=== PATIENT | male | born 1930 | race Two or more races ===

== ENCOUNTER 2018-12-19 23:39 | Emergency (ER) | payer OTHER, MEDICARE ==
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
[2018-12-20 01:11] LABS: ABSOLUTE BASOPHILS # (AUTO) 0.1 10^3/uL (0.0-0.2); ABSOLUTE EOSINOPHILS # (AUTO) 0.1 10^3/uL (0.0-0.6); ABSOLUTE LYMPHOCYTES (AUTO) 0.5 10^3/uL (0.5-4.7); ABSOLUTE MONOCYTES (AUTO) 0.5 10^3/uL (0.1-1.4); BASOPHILS % (AUTO) 0.8 % (0-2); EOSINOPHILS % (AUTO) 1.3 % (0-6); HEMOGLOBIN 12.3 g/dL (13.5-17.0); LYMPHOCYTES % (AUTO) 7.1 % (13-45); MEAN CORPUSCULAR HGB CONC 33.4 g/dL (32.0-36.0); MEAN CORPUSCULAR VOLUME 93 fl (80-97); MONOCYTES % (AUTO) 7.3 % (3-13); PLATELET COUNT 127 10^3/uL (150-450); RED BLOOD COUNT 3.98 10^6/uL (4.35-5.55); RED CELL DISTRIBUTION WIDTH 13.4 % (11.5-14.0); SEGMENTED NEUTROPHILS % (AUTO) 83.5 % (42-78); TOTAL CELLS COUNTED % (AUTO) 100 %; WHITE BLOOD COUNT 7.2 10^3/uL (4.0-10.5)
[2018-12-20 01:14] LABS: INTERNATIONAL RATION (INR) 1.02; PROTHROMBIN TIME 13.4 SEC (11.4-15.4)
[2018-12-20 01:57] LABS: ALBUMIN 3.9 g/dL (3.5-5.0); ALKALINE PHOSPHATASE 80 U/L (38-126); ANION GAP 9 (5-19); ASPARTATE AMINO TRANSFERASE 32 U/L (17-59); BILIRUBIN,DIRECT 0.5 mg/dL (0.0-0.4); BILIRUBIN,TOTAL 0.8 mg/dL (0.2-1.3); BLOOD UREA NITROGEN 27 mg/dL (7-20); CALCIUM 9.5 mg/dL (8.4-10.2); CARBON DIOXIDE 29 mmol/L (22-30); CHLORIDE 102 mmol/L (98-107); GLUCOSE 106 mg/dL (75-110); TOTAL PROTEIN 7.8 g/dL (6.3-8.2)
--- NOTE | 2018-12-20 02:19 | RADIOLOGY REPORT (SQ) ---
EXAM DESCRIPTION: XR RIGHT FOOT 3 OR MORE VIEWS COMPLETED DATE/TME: 12/20/2018 01:24 CLINICAL HISTORY: 88 years, Male, fever, infection, hx amputation COMPARISON: None. NUMBER OF VIEWS: TECHNIQUE: LIMITATIONS: None. FINDINGS: There is evidence of forefoot amputation. There is possible edema/swelling in the region of the amputation stump. No evidence of gas or radiopaque foreign body within the soft tissues. No radiographic evidence of osteomyelitis. There are some degenerative changes involving the tarsal bone joints. There is a plantar calcaneal spur. IMPRESSION: Possible edema/swelling in the region of the amputation stump, with no evidence of osteomyelitis. Other findings as described. copyright 2010 [employer]- All Rights Reserved
[2018-12-20 02:44] LABS: VENOUS BLOOD BASE EXCESS 4.5 mmol/L; VENOUS BLOOD HCO3 30.3 mmol/L (20-32); VENOUS BLOOD PCO2 50.1 mmHg (35-63); VENOUS BLOOD PH 7.4 (7.30-7.42)
[2018-12-20 03:25] LABS: APPEARANCE,URINE CLEAR; BILIRUBIN,URINE NEGATIVE (NEGATIVE); COLOR,URINE YELLOW; GLUCOSE, URINE 150 mg/dL (NEGATIVE); KETONES,URINE NEGATIVE (NEGATIVE); LEUKOCYTE ESTERASE,URINE NEGATIVE (NEGATIVE); NITRITE,URINE NEGATIVE (NEGATIVE); PROTEIN,URINE 30 mg/dL (NEGATIVE); URINE SPECIFIC GRAVITY 1.015; UROBILINOGEN,URINE NEGATIVE mg/dL (<2.0)
[2018-12-20 04:53] VITALS: BP 117/60
--- NOTE | 2018-12-20 10:16 | EKG REPORT ---
SEVERITY:- NORMAL ECG - SINUS RHYTHM : Confirmed by: Tucker Rashid 20-Dec-2018 10:15:27
== END 2018-12-20 05:30 | disposition home or self-care (01) ==
LOC: ER 23:39
DX: R50.9 Fever, unspecified (principal); I25.10 Atherosclerotic heart disease of native coronary artery without angina pectoris; I10 Essential (primary) hypertension; E11.9 Type 2 diabetes mellitus without complications; E03.9 Hypothyroidism, unspecified; Z89.431 Acquired absence of right foot
CPT/HCPCS: 36415; 80053; 81001; 82803; 83605; 85025; 85610; 87040; 87086; 93005; 93010; 99284

== ENCOUNTER 2018-12-30 17:44 | Observation (INO) | payer OTHER, MEDICARE ==
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
--- NOTE | 2018-12-30 19:46 | RADIOLOGY REPORT (SQ) ---
EXAM DESCRIPTION: FOOT RIGHT COMPLETE COMPLETED DATE/TIME: 12/30/2018 7:37 pm REASON FOR STUDY: hx of injury, pain partial ambut COMPARISON: None. NUMBER OF VIEWS: Three views. TECHNIQUE: AP, lateral and oblique radiographic images acquired of the right foot. LIMITATIONS: None. FINDINGS: MINERALIZATION: Normal. BONES: Amputation of the forefoot. No evidence of osteomyelitis. JOINTS: No effusions. SOFT TISSUES: No soft tissue swelling. No foreign body. OTHER: No other significant finding. IMPRESSION: No evidence of osteomyelitis. No acute finding. TECHNICAL DOCUMENTATION: JOB ID: [id number] [email or web address]- All Rights Reserved Reading location - IP/workstation name: [email or web address]
[2018-12-30 20:33] LABS: ABSOLUTE BASOPHILS # (AUTO) 0.1 10^3/uL (0.0-0.2); ABSOLUTE EOSINOPHILS # (AUTO) 0.2 10^3/uL (0.0-0.6); ABSOLUTE LYMPHOCYTES (AUTO) 1.7 10^3/uL (0.5-4.7); ABSOLUTE MONOCYTES (AUTO) 0.4 10^3/uL (0.1-1.4); ABSOLUTE NEUT (AUTO) 5.9 10^3/uL (1.7-8.2); BASOPHILS % (AUTO) 0.9 % (0-2); EOSINOPHILS % (AUTO) 2.3 % (0-6); HEMATOCRIT 37.6 % (37.9-51.0); HEMOGLOBIN 12.8 g/dL (13.5-17.0); LYMPHOCYTES % (AUTO) 20.5 % (13-45); MEAN CORPUSCULAR HEMOGLOBIN 31.6 pg (27.0-33.4); MEAN CORPUSCULAR VOLUME 93 fl (80-97); MONOCYTES % (AUTO) 5.3 % (3-13); PLATELET COUNT 156 10^3/uL (150-450); RED BLOOD COUNT 4.04 10^6/uL (4.35-5.55); RED CELL DISTRIBUTION WIDTH 13.3 % (11.5-14.0); TOTAL CELLS COUNTED % (AUTO) 100 %; WHITE BLOOD COUNT 8.3 10^3/uL (4.0-10.5)
[2018-12-30 20:51] LABS: ALBUMIN 3.3 g/dL (3.5-5.0); ALKALINE PHOSPHATASE 90 U/L (38-126); ANION GAP 11 (5-19); ASPARTATE AMINO TRANSFERASE 21 U/L (17-59); BILIRUBIN,DIRECT 0.4 mg/dL (0.0-0.4); BILIRUBIN,TOTAL 0.6 mg/dL (0.2-1.3); BLOOD UREA NITROGEN 30 mg/dL (7-20); CARBON DIOXIDE 24 mmol/L (22-30); CHLORIDE 101 mmol/L (98-107); GLUCOSE 324 mg/dL (75-110); POTASSIUM 4.5 mmol/L (3.6-5.0); TOTAL PROTEIN 7.5 g/dL (6.3-8.2)
[2018-12-30] MEDS ORDERED: PIPERACILLIN/TAZOBACTAM 3.375 GM VIAL IV ONE (22:11)
[2018-12-30] MEDS ORDERED: VANCOMYCIN HCL INJ 1000 MG VIAL IV ONE (22:26)
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
[2018-12-30] MEDS ORDERED: NORMAL SALINE 1000 ML 1,000 ML IV ONE (22:29)
[2018-12-30] MEDS ORDERED: MAGNESIUM HYDROXIDE SUSP 30 ML UDCUP PO PRN (22:44)
[2018-12-30] MEDS ORDERED: ACETAMINOPHEN 325 MG TABLET PO PRN (22:44)
[2018-12-30] MEDS ORDERED: IPRATROPIUM/ALBUTEROL 0.5-2.5 MG/3 ML AMPUL NEB PRN (22:44)
[2018-12-30] MEDS ORDERED: GLUCAGON,HUMAN RECOMB 1 MG INJ IM PRN (22:44)
[2018-12-30] MEDS ORDERED: DEXTROSE 40% GEL 15 GM TUBE PO PRN ×2 (22:44)
[2018-12-30] MEDS ORDERED: MAG HYDROX/AL HYDROX/SIMETH SUSP 30 ML UDCUP PO PRN (22:44)
[2018-12-30] MEDS ORDERED: DEXTROSE 50%-WATER 25 GM/50 ML DISP.SYRIN IV PRN ×2 (22:44)
[2018-12-30] MEDS ORDERED: NORMAL SALINE 1000 ML 1,000 ML IV PRN (22:45)
--- NOTE | 2018-12-30 23:22 | RADIOLOGY REPORT (SQ) ---
EXAM DESCRIPTION: XR CHEST 1 VIEW COMPLETED DATE/TME: 12/30/2018 22:23 CLINICAL HISTORY: 88 years Male, diabetic foot ulcer COMPARISON: None. NUMBER OF VIEWS/TECHNIQUE: 1/AP FINDINGS: Moderate lung volume, minimal left basilar atelectasis or scar, normal cardiac silhouette, and intact bony thorax. Atherosclerotic vascular disease. IMPRESSION: No acute cardiopulmonary findings.
[2018-12-30] MEDS ORDERED: GABAPENTIN 100 MG CAPSULE PO ONE (23:30)
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
[2018-12-31 03:30] LABS: ABSOLUTE BASOPHILS # (AUTO) 0.1 10^3/uL (0.0-0.2); ABSOLUTE EOSINOPHILS # (AUTO) 0.3 10^3/uL (0.0-0.6); ABSOLUTE LYMPHOCYTES (AUTO) 1.9 10^3/uL (0.5-4.7); ABSOLUTE MONOCYTES (AUTO) 0.5 10^3/uL (0.1-1.4); ABSOLUTE NEUT (AUTO) 4.8 10^3/uL (1.7-8.2); BASOPHILS % (AUTO) 1.2 % (0-2); EOSINOPHILS % (AUTO) 3.8 % (0-6); HEMATOCRIT 34.5 % (37.9-51.0); HEMOGLOBIN 11.6 g/dL (13.5-17.0); LYMPHOCYTES % (AUTO) 24.9 % (13-45); MEAN CORPUSCULAR HEMOGLOBIN 31.1 pg (27.0-33.4); MEAN CORPUSCULAR HGB CONC 33.8 g/dL (32.0-36.0); MEAN CORPUSCULAR VOLUME 92 fl (80-97); PLATELET COUNT 152 10^3/uL (150-450); RED BLOOD COUNT 3.74 10^6/uL (4.35-5.55); SEGMENTED NEUTROPHILS % (AUTO) 63.1 % (42-78); TOTAL CELLS COUNTED % (AUTO) 100 %; WHITE BLOOD COUNT 7.6 10^3/uL (4.0-10.5)
--- NOTE | 2018-12-31 04:30 | PDOC H&P ---
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 He presents 10 days after submerging his right foot and to excessively hot bath water results in blistering, erythema and pain prompting evaluation in the emergency room. He is found to have 6 x 3 cm eschar to the right foot with peripheral erythema without exudate. He is ordered empiric antibiotics and referred to the hospitalist for admission. Patient complains of new and excessive pain at night to the right foot. Patient is visiting the area from out of state and accompanied by daughter. Past Medical History Cardiac Medical History: Reports: Coronary Artery Disease, Hypertension Endocrine Medical History: Reports: Diabetes Mellitus Type 2, Hypothyroidism Psychiatric Medical History: Denies: Depression Past Surgical History Past Surgical History: Reports: Orthopedic Surgery - right foot partial amputation, Vascular Surgery Social History Information Source: Patient, Emergency Med Personnel, [facility] Records Lives with: Family Smoking Status: Never Smoker Frequency of Alcohol Use: None Drugs: None Hx Prescription Drug Abuse: No - Advance Directive Resuscitation Status: Full Code Family History Family History: DM, Hypertension Parental Family History Reviewed: Yes Children Family History Reviewed: Yes Sibling(s) Family History Reviewed.: Yes Medication/Allergy Allergies/Adverse Reactions: No Known Allergies Allergy (Verified 12/30/18 18:05) Review of Systems Constitutional: ABSENT: chills, fever(s), headache(s), weight gain, weight loss Eyes: ABSENT: visual disturbances Ears: ABSENT: hearing changes Cardiovascular: ABSENT: chest pain, dyspnea on exertion, edema, orthropnea, palpitations Respiratory: ABSENT: cough, hemoptysis Gastrointestinal: ABSENT: abdominal pain, constipation, diarrhea, hematemesis, hematochezia, nausea, vomiting Genitourinary: ABSENT: dysuria, hematuria Musculoskeletal: ABSENT: joint swelling Integumentary: ABSENT: rash, wounds Neurological: ABSENT: abnormal gait, abnormal speech, confusion, dizziness, focal weakness, syncope Psychiatric: ABSENT: anxiety, depression, homidical ideation, suicidal ideation Endocrine: ABSENT: cold intolerance, heat intolerance, polydipsia, polyuria Hematologic/Lymphatic: ABSENT: easy bleeding, easy bruising Physical Exam Vital Signs: Temp Pulse Resp BP Pulse Ox 98.4 F 88 17 148/66 H 99 12/31/18 02:21 12/31/18 02:21 12/31/18 02:21 12/31/18 02:21 12/31/18 02:21 Intake & Output 12/29/18 12/30/18 12/31/18 11:59 11:59 11:59 Weight 72.9 kg General appearance: PRESENT: cooperative, mild distress, well-developed, well- nourished Head exam: PRESENT: atraumatic, normocephalic Eye exam: PRESENT: conjunctiva pink, EOMI, PERRLA. ABSENT: scleral icterus Ear exam: PRESENT: normal external ear exam Mouth exam: PRESENT: moist, tongue midline Neck exam: ABSENT: carotid bruit, JVD, lymphadenopathy, thyromegaly Respiratory exam: PRESENT: clear to auscultation cheryle. ABSENT: rales, rhonchi, wheezes Cardiovascular exam: PRESENT: RRR. ABSENT: diastolic murmur, rubs, systolic murmur Pulses: PRESENT: normal dorsalis pedis pul Vascular exam: PRESENT: normal capillary refill GI/Abdominal exam: PRESENT: normal bowel sounds, soft. ABSENT: distended, guarding, mass, organolmegaly, rebound, tenderness Rectal exam: PRESENT: deferred Extremities exam: PRESENT: full ROM. ABSENT: calf tenderness, clubbing, pedal edema Neurological exam: PRESENT: alert, awake, oriented to person, oriented to place, oriented to time, oriented to situation, CN II-XII grossly intact. ABSENT: motor sensory deficit Psychiatric exam: PRESENT: appropriate affect, normal mood. ABSENT: homicidal ideation, suicidal ideation Skin exam: PRESENT: dry, warm, other - Plantar surface of the right foot with a 6 x 3 cm eschar with erythemic borders, without malodor or discharge. ABSENT: cyanosis, intact, rash Results Laboratory Results: 12/31/18 02:41 12/30/18 19:55 12/30/18 12/30/18 12/30/18 19:55 19:55 19:55 WBC 8.3 RBC 4.04 L Hgb 12.8 L Hct 37.6 L MCV 93 MCH 31.6 MCHC 34.0 RDW 13.3 Plt Count 156 Seg Neutrophils % 71.0 Sodium 135.5 L Potassium 4.5 Chloride 101 Carbon Dioxide 24 Anion Gap 11 BUN 30 H Creatinine 1.22 Est GFR ( Amer) > 60 Glucose 324 H Lactic Acid 2.2 H Calcium 9.0 Total Bilirubin 0.6 AST 21 Alkaline Phosphatase 90 C-Reactive Protein Total Protein 7.5 Albumin 3.3 L 12/30/18 12/31/18 12/31/18 19:55 02:41 02:41 WBC 7.6 RBC 3.74 L Hgb 11.6 L Hct 34.5 L MCV 92 MCH 31.1 MCHC 33.8 RDW 13.0 Plt Count 152 Seg Neutrophils % 63.1 Sodium Potassium Chloride Carbon Dioxide Anion Gap BUN Creatinine Est GFR ( Amer) Glucose Lactic Acid 1.8 Calcium Total Bilirubin AST Alkaline Phosphatase C-Reactive Protein 48.5 H Total Protein Albumin 12/31/18 02:41 Creatine Kinase 48 L Impressions: Foot X-Ray 12/30/18 19:14 IMPRESSION: No evidence of osteomyelitis. No acute finding. Chest X-Ray 12/30/18 22:23 IMPRESSION: No acute cardiopulmonary findings. Assessment and Plan - Diagnosis (1) Diabetes Is this a current diagnosis for this admission?: Yes Plan: Humalog sliding scale, follow-up outpatient regiment, A1c (2) Burn Is this a current diagnosis for this admission?: Yes Plan: With eschar complicated by diabetes, follow-up surgical consult for recommendations. (3) Osteomyelitis Is this a current diagnosis for this admission?: Yes Plan: No apparent active infection, leukocytosis or localized pain or exudate. Patient is received a single dose of empiric antibiotics. Will obtain CT right foot and evaluation of possible osteomyelitis given a CRP of 49 - Time Time Spent with patient: 35 or more minutes - Inpatient Certification Medical Necessity: Need Close Monitoring Due to Risk of Patient Decompensation
[2018-12-31] MEDS ORDERED: GABAPENTIN 100 MG CAPSULE PO SCH (06:00)
[2018-12-31] MEDS ORDERED: HEPARIN SOD (PORCINE) 5,000 UNIT/ML 1 ML VIAL SUBCUT SCH (06:00)
[2018-12-31] MEDS: INSULIN LISPRO 100 UNIT/ML 3 ML VIAL SUBCUT SCH ×2 (08:06→12:10)
[2018-12-31] MEDS ORDERED: SILVER SULFADIAZINE 1% CREAM 25 GM TP SCH (10:00)
--- NOTE | 2018-12-31 10:47 | PDOC PROGRESS REPORT ---
Subjective Progress Note for:: 12/31/18 Subjective:: 88-year-old male with a burn to the right foot. He is resting in bed comfortably. He denies pain in the foot, erythema, foul-smelling drainage, or other problem. He also denies chest pain, shortness of breath, fevers, chills, nausea, vomiting, abdominal pain, melena, dizziness. He has family members at bedside that assist with the conversation. Reason For Visit: RIGHT FOOT BURN W ESCHAR Physical Exam Vital Signs: Temp Pulse Resp BP Pulse Ox 98.6 F 80 16 125/63 100 12/31/18 07:46 12/31/18 07:46 12/31/18 07:46 12/31/18 07:46 12/31/18 07:46 Intake & Output 12/30/18 12/31/18 01/01/19 06:59 06:59 06:59 Weight 72.9 kg General appearance: PRESENT: no acute distress, cooperative Head exam: PRESENT: atraumatic, normocephalic Eye exam: ABSENT: scleral icterus Mouth exam: PRESENT: moist, neck supple Neck exam: ABSENT: meningismus, tenderness, thyromegaly, tracheal deviation Respiratory exam: ABSENT: chest wall tenderness, wheezes Cardiovascular exam: ABSENT: tachycardia Vascular exam: PRESENT: normal capillary refill, pallor GI/Abdominal exam: PRESENT: soft. ABSENT: distended, tenderness Rectal exam: PRESENT: deferred Extremities exam: PRESENT: other - Burn to the right foot. Eschar is present, without signs of necrosis. No purulent drainage. No evidence of infection. Musculoskeletal exam: PRESENT: other - Previous TMA to the right foot. Neurological exam: PRESENT: alert, awake Psychiatric exam: ABSENT: agitated, anxious Skin exam: ABSENT: erythema, jaundice Results Laboratory Results: 12/31/18 02:41 12/30/18 19:55 12/30/18 12/30/18 12/30/18 19:55 19:55 19:55 WBC 8.3 RBC 4.04 L Hgb 12.8 L Hct 37.6 L MCV 93 MCH 31.6 MCHC 34.0 RDW 13.3 Plt Count 156 Seg Neutrophils % 71.0 Sodium 135.5 L Potassium 4.5 Chloride 101 Carbon Dioxide 24 Anion Gap 11 BUN 30 H Creatinine 1.22 Est GFR ( Amer) > 60 Glucose 324 H Lactic Acid 2.2 H Calcium 9.0 Total Bilirubin 0.6 AST 21 Alkaline Phosphatase 90 C-Reactive Protein Total Protein 7.5 Albumin 3.3 L 12/30/18 12/31/18 12/31/18 19:55 02:41 02:41 WBC 7.6 RBC 3.74 L Hgb 11.6 L Hct 34.5 L MCV 92 MCH 31.1 MCHC 33.8 RDW 13.0 Plt Count 152 Seg Neutrophils % 63.1 Sodium Potassium Chloride Carbon Dioxide Anion Gap BUN Creatinine Est GFR ( Amer) Glucose Lactic Acid 1.8 Calcium Total Bilirubin AST Alkaline Phosphatase C-Reactive Protein 48.5 H Total Protein Albumin 12/31/18 02:41 Creatine Kinase 48 L Impressions: Foot X-Ray 12/30/18 19:14 IMPRESSION: No evidence of osteomyelitis. No acute finding. Chest X-Ray 12/30/18 22:23 IMPRESSION: No acute cardiopulmonary findings. Assessment & Plan - Diagnosis (1) Burn Is this a current diagnosis for this admission?: Yes - Plan Summary Plan Summary: This is an 88-year-old male with a burn to the right foot. The patient has an intact eschar over the burn. The eschar is not necrotic. There is no evidence of purulence. There is no significant erythema. I believe the patient would b enefit from Silvadene ointment and a dry dressing. The patient and his family should perform this once a day. The patient should return to [facility] for follow-up in 7 to 10 days. At this time, the wound does not require debridement. It is unlikely that it will require debridement in the near future, although close follow-up is mandatory. The patient is fit for discharge from a surgical standpoint. I will see the patient again on an as-needed basis in the hospital. Please renotify with any questions or concerns.
[2018-12-31 12:29] VITALS: BP 124/57
--- NOTE | 2018-12-31 16:55 | PDOC DISCHARGE SUMMARY ---
General - Admit/Disc Date/PCP Admission Date/Primary Care Provider: 12/30/18 22:46 Discharge Date: 12/31/18 - Additional Information Resuscitation Status: Full Code Discharge Diet: Diabetic Discharge Activity: Supervised Activity Prescriptions: Silver Sulfadiazine [Silvadene 1% Cream 25 gm] 1 applic TP DAILY #1 tube Home Medications: Silver Sulfadiazine [Silvadene 1% Cream 25 gm] 1 applic TP DAILY #1 tube 12/31/18 History of Present Illness History of Present Illness: CAMILLE RAMIREZ is a 88 year old male with a past medical history of coronary artery disease, peripheral vascular disease, insulin-dependent diabetes and 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 He presents 10 days after submerging his right foot and to excessively hot bath water results in blistering, erythema and pain prompting evaluation in the emergency room. He is found to have 6 x 3 cm eschar to the right foot with peripheral erythema without exudate. He is ordered empiric antibiotics and referred to the hospitalist for admission. Patient complains of new and excessive pain at night to the right foot. Patient is visiting the area from out of state and accompanied by daughter. Hospital Course Hospital Course: He was seen in consultation by surgery who did not think the foot was infected and as needed local wound care. They recommended Silvadene daily with a dry bandage. We sent a prescription to the pharmacy and gave the patient's daughter some bandage material. He will continue his usual medications at home. He was discharged in stable condition. Physical Exam Vital Signs: Temp Pulse Resp BP Pulse Ox 98.6 F 80 16 124/57 L 100 12/31/18 12:27 12/31/18 12:27 12/31/18 12:27 12/31/18 12:27 12/31/18 12:27 Intake & Output 12/30/18 12/31/18 01/01/19 06:59 06:59 06:59 Weight 72.9 kg General appearance: PRESENT: no acute distress, cooperative, disheveled Respiratory exam: PRESENT: clear to auscultation cheryle, symmetrical, unlabored. ABSENT: accessory muscle use, chest wall tenderness, crackles, prolonged expiratory phas, rhonchi, tachypnea, wheezes Cardiovascular exam: PRESENT: RRR, +S1, +S2 Pulses: PRESENT: normal carotid pulses Vascular exam: PRESENT: normal capillary refill GI/Abdominal exam: PRESENT: normal bowel sounds, soft. ABSENT: distended, guarding, rebound, tenderness Extremities exam: PRESENT: other - The right foot shows a previous partial amputation. On the bottom of the foot is a large area approximately 6 x 3 cm of dark eschar without any surrounding erythema or exudate.. ABSENT: clubbing, pedal edema Neurological exam: PRESENT: alert, awake, oriented to person, oriented to place, oriented to situation Psychiatric exam: PRESENT: appropriate affect, normal mood Skin exam: PRESENT: dry, warm Results Laboratory Results: 12/31/18 02:41 12/30/18 19:55 12/30/18 12/30/18 12/30/18 19:55 19:55 19:55 WBC 8.3 RBC 4.04 L Hgb 12.8 L Hct 37.6 L MCV 93 MCH 31.6 MCHC 34.0 RDW 13.3 Plt Count 156 Seg Neutrophils % 71.0 Sodium 135.5 L Potassium 4.5 Chloride 101 Carbon Dioxide 24 Anion Gap 11 BUN 30 H Creatinine 1.22 Est GFR ( Amer) > 60 Glucose 324 H Lactic Acid 2.2 H Calcium 9.0 Total Bilirubin 0.6 AST 21 Alkaline Phosphatase 90 C-Reactive Protein Total Protein 7.5 Albumin 3.3 L 12/30/18 12/31/18 12/31/18 19:55 02:41 02:41 WBC 7.6 RBC 3.74 L Hgb 11.6 L Hct 34.5 L MCV 92 MCH 31.1 MCHC 33.8 RDW 13.0 Plt Count 152 Seg Neutrophils % 63.1 Sodium Potassium Chloride Carbon Dioxide Anion Gap BUN Creatinine Est GFR ( Amer) Glucose Lactic Acid 1.8 Calcium Total Bilirubin AST Alkaline Phosphatase C-Reactive Protein 48.5 H Total Protein Albumin 12/31/18 02:41 Creatine Kinase 48 L Impressions: Foot X-Ray 12/30/18 19:14 IMPRESSION: No evidence of osteomyelitis. No acute finding. Chest X-Ray 12/30/18 22:23 IMPRESSION: No acute cardiopulmonary findings. Qualifiers - * PATIENT BEING DISCHARGED WITH ANY OF THE FOLLOWING DIAGNOSIS: No Acute Heart Failure - Is this a Heart Failure Patient?: No Plan Time Spent: Greater than 30 Minutes
== END 2018-12-31 13:53 | disposition home or self-care (01) ==
LOC: ER 17:44 → EH 22:46 → INTOOBSV 22:46 → 4N 12-31 01:53
PROVIDERS: ADMIT Internal Medicine; ATTEND Internal Medicine
DX: T25.321A Burn of third degree of right foot, initial encounter (principal); X11.0XXA Contact with hot water in bath or tub, initial encounter; Y93.E1 Activity, personal bathing and showering; E11.51 Type 2 diabetes mellitus with diabetic peripheral angiopathy without gangrene; R53.83 Other fatigue; I25.10 Atherosclerotic heart disease of native coronary artery without angina pectoris; E11.65 Type 2 diabetes mellitus with hyperglycemia; I87.8 Other specified disorders of veins; Z89.431 Acquired absence of right foot; Z87.891 Personal history of nicotine dependence; Z79.4 Long term (current) use of insulin
CPT/HCPCS: 99285; 36415 ×2; 87040 ×2; 87070; 87205; 82962 ×2; 82550; 85025 ×2; 86140; 87077; 80053; 87186; 83036; 83605 ×2; 71045; 73630; G0378 ×3; J1815

== ENCOUNTER 2019-02-20 18:58 | Inpatient (IN) | payer OTHER, MEDICARE ==
[2019-02-20 20:24] LABS: HEMATOCRIT 29.3 % (37.9-51.0); HEMOGLOBIN 9.5 g/dL (13.5-17.0); MEAN CORPUSCULAR HEMOGLOBIN 29.5 pg (27.0-33.4); MEAN CORPUSCULAR HGB CONC 32.3 g/dL (32.0-36.0); MEAN CORPUSCULAR VOLUME 92 fl (80-97); PLATELET COUNT 143 10^3/uL (150-450); RED BLOOD COUNT 3.21 10^6/uL (4.35-5.55); RED CELL DISTRIBUTION WIDTH 13.9 % (11.5-14.0); WHITE BLOOD COUNT 11.2 10^3/uL (4.0-10.5)
[2019-02-20 20:30] LABS: INTERNATIONAL RATION (INR) 1.57; PROTHROMBIN TIME 18.9 SEC (11.4-15.4)
[2019-02-20 20:43] LABS: ALBUMIN 2.6 g/dL (3.5-5.0); ALKALINE PHOSPHATASE 84 U/L (38-126); ANION GAP 11 (5-19); ASPARTATE AMINO TRANSFERASE 15 U/L (17-59); BILIRUBIN,DIRECT 0.3 mg/dL (0.0-0.4); BILIRUBIN,TOTAL 0.9 mg/dL (0.2-1.3); BLOOD UREA NITROGEN 29 mg/dL (7-20); CALCIUM 8.6 mg/dL (8.4-10.2); CARBON DIOXIDE 26 mmol/L (22-30); CHLORIDE 100 mmol/L (98-107); GLUCOSE 206 mg/dL (75-110); POTASSIUM 4.1 mmol/L (3.6-5.0); TOTAL PROTEIN 5.9 g/dL (6.3-8.2)
[2019-02-20 20:45] LABS: ALCOHOL < 10 mg/dL (NONE DETECTED)
[2019-02-20 20:52] LABS: ABSOLUTE LYMPHOCYTES# (MANUAL) 0.1 10^3/uL (0.5-4.7); ABSOLUTE MONOCYTES # (MANUAL) 0.4 10^3/uL (0.1-1.4); BAND NEUTROPHILS % (MANUAL) 2 % (3-5); BASOPHILS % (MANUAL) 1 % (0-2); EOSINOPHILS % (MANUAL) 0 % (0-6); HYPOCHROMASIA SLIGHT; LYMPHOCYTES % (MANUAL) 1 % (13-45); MONOCYTES % (MANUAL) 4 % (3-13); SEGMENTED NEUTROPHILS % (MAN) 92 % (42-78); TOTAL CELLS COUNTED 100
[2019-02-20 20:53] LABS: PLATELET COMMENT DECREASED
[2019-02-20] MEDS ORDERED: PIPERACILLIN/TAZOBACTAM 3.375 GM VIAL IV ONE (21:08)
[2019-02-20 21:11] LABS: VENOUS BLOOD BASE EXCESS 0.5 mmol/L; VENOUS BLOOD HCO3 25.4 mmol/L (20-32); VENOUS BLOOD PCO2 41.8 mmHg (35-63); VENOUS BLOOD PH 7.4 (7.30-7.42)
--- NOTE | 2019-02-20 21:47 | ER Document Report ---
ED General - General Chief Complaint: Altered Mental Status Stated Complaint: POSSIBLE SEPSIS Primary Care Provider: KASSIE PARKINSON MD [COMMUNITY BASED STAFF] - Follow up as needed TRAVEL OUTSIDE OF THE [place] IN LAST 30 DAYS: No - HPI Onset: This morning Onset/Duration: Persistent. denies: Sudden, Gradual, Constant, Intermittent, Waxing and waning, Better, Worse, Gone Quality of pain: denies: No pain, Achy, Burning, Cramping, Dull, Fullness, Press ure, Sharp, Stabbing, Throbbing, Other Severity: Moderate Associated symptoms: Fever. denies: None, Allergy/hay fever, Body/muscle aches, Chest pain, Chills, Nonproductive cough, Productive cough, Diarrhea, Drooling, Earache, Headache, Hoarseness, Hurts to breath, Leg swelling, Nausea, Vomiting, Rhinnorhea, Sinus pain/drainage, Shortness of breath, Slow to respond, Sore throat, Sweating, Weakness, Other Exacerbated by: Movement. denies: Denies, Supine, Sitting, Standing, Walking, Coughing, Deep breathing, Food, Other Relieved by: denies: Denies, Supine, Sitting, Standing, Remaining still, An tacids, Food, Other Notes: Note this is a 89-year-old with a history of diabetes status post resection of his right foot for Cliff problems who presents today with a swollen red heel and foot on this same foot that had the partial amputation with some purulent drainage from it secondary to a eschar on the heel of this foot. Per his son she has had a fever to 102 today - Related Data Allergies/Adverse Reactions: No Known Allergies Allergy (Verified 02/20/19 21:35) Home Medications: reg insulin, nph insulin, b12, isosorbide, eliquis, synthroid, rantinidine, multivitamin Past Medical History - Social History Smoking Status: Unknown if Ever Smoked Family History: DM, Hypertension Patient has suicidal ideation: No Patient has homicidal ideation: No - Past Medical History Cardiac Medical History: Reports: Hx Coronary Artery Disease, Hx Hypertension Endocrine Medical History: Reports: Hx Diabetes Mellitus Type 2, Hx Hypothyroidism Renal/ Medical History: Denies: Hx Peritoneal Dialysis Psychiatric Medical History: Denies: Hx Depression Past Surgical History: Reports: Hx Orthopedic Surgery - right foot partial amputation, Hx Vascular Surgery Review of Systems - Review of Systems Constitutional: Fever. denies: No symptoms reported, See HPI, Chills, Diaphoresis, Malaise, Weakness, Other, Weight gain, Weight loss, Recent illness Cardiovascular: denies: No symptoms reported, See HPI, Chest pain, Palpitations, Heart racing, Orthopnea, Dyspnea, Syncope, Dizziness, Lightheaded, Edema, Other, Paroxysmal Nocturnal Dysp Respiratory: denies: No symptoms reported, See HPI, Cough, Hurts to breathe, Hemoptysis, Short of breath, Sputum, Stridor, Wheezing, Other Genitourinary: denies: No symptoms reported, See HPI, Burning, Dysuria, Discharge, Frequency, Flank pain, Hematuria, Incontinence, Pain, Urgency, Retention, Other Musculoskeletal: denies: No symptoms reported, See HPI, Back pain, Gout, Joint pain, Joint swelling, Muscle pain, Muscle stiffness, Neck pain, Deformity, Leg swelling, Ankle swelling, Other Skin: See HPI Neurological/Psychological: Confusion. denies: No symptoms reported, See HPI, Dementia, Depression, Anxiety, Hallucinations, Sensory change, Homicidal ideation, Weakness, Gait changes, Loss of power, Paralysis, Seizure, Lost consciousness, Headaches, Speech impairment, Numbness, Suicidal ideation, Tingling, Tremor, Other -: Yes All other systems reviewed and negative Physical Exam - Vital signs Vitals: Pulse Ox 97 02/20/19 18:59 Notes: PHYSICAL EXAMINATION: GENERAL: Well-appearing, well-nourished and in no acute distress. HEAD: Atraumatic, normocephalic. EYES: Pupils equal round and reactive to light, extraocular movements intact, sclera anicteric, conjunctiva are normal. ENT: nares patent, oropharynx clear without exudates. Moist mucous membranes. NECK: Normal range of motion, supple without lymphadenopathy LUNGS: Breath sounds clear to auscultation bilaterally and equal. No wheezes rales or rhonchi. HEART: Regular rate and rhythm without murmurs ABDOMEN: Soft, nontender, normoactive bowel sounds. No guarding, no rebound. No masses appreciated. EXTREMITIES: Normal range of motion, no pitting or edema. No cyanosis. Right foot partial amputation of the toes. On the heel there is a grade 3 ulcer with eschar. Around it is surrounding erythema when palpating the area it is painful to the patient it is also expressed some purulent material the foot is hot up to midway up the leg. Extremities are normal NEUROLOGICAL: No focal neurological deficits. Moves all extremities spontaneous ly and on command. Is alert to his name and believes he is in a hospital apparently this is baseline per his son patient extremely hard of hearing PSYCH: Normal mood, normal affect. SKIN: Warm, Dry, normal turgor, no rashes or lesions noted. Course - Vital Signs Vital signs: Temp Pulse Resp BP Pulse Ox 99.4 F 110 H 14 96/51 L 100 02/20/19 19:32 02/20/19 19:32 02/20/19 21:01 02/20/19 21:01 02/20/19 21:01 - Laboratory Result Diagrams: 02/20/19 19:55 02/20/19 19:55 Laboratory results interpreted by me: 02/20/19 02/20/19 02/20/19 19:55 19:55 19:55 WBC 11.2 H RBC 3.21 L Hgb 9.5 L Hct 29.3 L Plt Count 143 L Seg Neuts % (Manual) 92 H Band Neutrophils % 2 L Lymphocytes % (Manual) 1 L Abs Neuts (Manual) 10.5 H Abs Lymphs (Manual) 0.1 L PT 18.9 H BUN 29 H Creatinine 1.57 H Est GFR ( Amer) 51 L Est GFR (MDRD) Non-Af 42 L Glucose 206 H Lactic Acid AST 15 L Total Protein 5.9 L Albumin 2.6 L 02/20/19 19:55 WBC RBC Hgb Hct Plt Count Seg Neuts % (Manual) Band Neutrophils % Lymphocytes % (Manual) Abs Neuts (Manual) Abs Lymphs (Manual) PT BUN Creatinine Est GFR ( Amer) Est GFR (MDRD) Non-Af Glucose Lactic Acid 2.3 H AST Total Protein Albumin - Diagnostic Test Radiology reviewed: Image reviewed Discharge - Discharge Clinical Impression: Cellulitis of right foot Sepsis Qualifiers: Sepsis type: sepsis due to unspecified organism Sepsis acute organ dysfunction status: unspecified Qualified Code(s): A41.9 - Sepsis, unspecified organism Diabetic foot ulcer Qualifiers: Diabetic foot ulcer location: heel Diabetes mellitus type: type 2 Condition: Good Disposition: ADMITTED INPATIENT Admitting Provider: Pamela (Hospitalist) Unit Admitted: Medical Floor Referrals: KASSIE PARKINSON MD [COMMUNITY BASED STAFF] - Follow up as needed
[2019-02-20] MEDS ORDERED: NORMAL SALINE 1000 ML 1,000 ML IV ONE (21:49)
--- NOTE | 2019-02-20 22:04 | RADIOLOGY REPORT (SQ) ---
EXAM DESCRIPTION: Right foot [facility]: XR FOOT 1-2 VIEWS CLINICAL HISTORY: 89 years Male, osteomyelitis COMPARISON: 12/30/2018 FINDINGS: Previous metatarsal amputation is again noted. Posterior to the calcaneus, there is focal subcutaneous lucency, likely subcutaneous air. No associated lytic changes in the adjacent calcaneus. IMPRESSION: 1. Focal soft tissue air posterior to the calcaneus, new since 12/30/2018, likely an ulcerated wound. 2. No radiographic evidence for osteomyelitis.
[2019-02-20] MEDS ORDERED: ONDANSETRON HCL INJ/PF 4 MG/2 ML SDV IV PRN (22:32)
[2019-02-20] MEDS ORDERED: MAG HYDROX/AL HYDROX/SIMETH SUSP 30 ML UDCUP PO PRN (22:32)
[2019-02-20] MEDS ORDERED: TEMAZEPAM 15 MG CAPSULE PO PRN (22:32)
[2019-02-20] MEDS ORDERED: NALBUPHINE HCL INJ 10 MG/1 ML AMPULE IV PRN (22:39)
[2019-02-20] MEDS ORDERED: GLUCAGON,HUMAN RECOMB 1 MG INJ IM PRN (22:40)
[2019-02-20] MEDS ORDERED: DEXTROSE 50%-WATER 25 GM/50 ML DISP.SYRIN IV PRN ×2 (22:40)
[2019-02-20] MEDS ORDERED: DEXTROSE 40% GEL 15 GM TUBE PO PRN ×2 (22:40)
[2019-02-20] MEDS ORDERED: VANCOMYCIN HCL INJ 1000 MG VIAL IV SCH (22:45)
[2019-02-20 23:31] LABS: FREE T3 2.15 pg/mL (2.77-5.27); FREE T4 (FREE THYROXINE) 2.87 ng/dL (0.78-2.19)
[2019-02-20 23:44] LABS: THYROID STIMULATING HORMONE 0.02 uIU/mL (0.47-4.68)
[2019-02-21] MEDS ORDERED: VANCOMYCIN HCL INJ 1000 MG VIAL IV PRN (00:28)
[2019-02-21] MEDS ORDERED: VANCOMYCIN HCL 1,250 MG in DEXTROSE 5%-WATER 250 ML IV ONE (01:00)
[2019-02-21 04:47] LABS: HEMATOCRIT 28.8 % (37.9-51.0); HEMOGLOBIN 9.5 g/dL (13.5-17.0); MEAN CORPUSCULAR HGB CONC 33.1 g/dL (32.0-36.0); MEAN CORPUSCULAR VOLUME 91 fl (80-97); PLATELET COUNT 152 10^3/uL (150-450); RED BLOOD COUNT 3.18 10^6/uL (4.35-5.55); RED CELL DISTRIBUTION WIDTH 13.5 % (11.5-14.0)
[2019-02-21 05:07] LABS: ANION GAP 8 (5-19); BLOOD UREA NITROGEN 28 mg/dL (7-20); CALCIUM 8.2 mg/dL (8.4-10.2); CARBON DIOXIDE 27 mmol/L (22-30); CHLORIDE 101 mmol/L (98-107); GLUCOSE 240 mg/dL (75-110)
--- NOTE | 2019-02-21 05:21 | PDOC H&P ---
History of Present Illness Admission Date/PCP: 02/20/2019 21:56 KASSIE PARKINSON MD Patient complains of: Fever History of Present Illness: CAMILLE RAMIREZ is a 89 year old male who presented to the emergency room with an acute fever. The patient is poorly communicative due to severe presbycusis and acute altered mental status with lethargy due to his fever. His son presented with the patient and provided his historical input. The patient developed a fever up to 101.2 F earlier in the day and has been lethargic but has not complained of pain. His son has noticed that his right heel has become more swollen and red over the last few days. In the emergency room the patient was found to have an erythematous edematous right heel with an ulcerated area covered by an eschar draining purulent exudate. The wound was cultured and blood cultures were obtained prior to starting antibiotics in the emergency room. Patient was noted to have a lactic acid of 2.3 and a mildly elevated w teresa blood count 11,200. He was subsequently admitted to the hospital for further evaluation and treatment. Past Medical History Cardiac Medical History: Reports: Coronary Artery Disease, Hypertension, Peripheral Vascular Disease Denies: Atrial Fibrillation, Congestive Heart Failure, Myocardial Infarction, Hyperlipidema Pulmonary Medical History: Denies: Asthma, Chronic Obstructive Pulmonary Disease (COPD) EENT Medical History: Reports: Ears - Severe presbycusis Denies: Cataracts Neurological Medical History: Denies: Hemorrhagic CVA, Ischemic CVA, Seizures Endocrine Medical History: Reports: Diabetes Mellitus Type 2, Hypothyroidism Denies: Diabetes Mellitus Type 1, Hyperthyroidism Renal/ Medical History: Reports: Chronic Kidney Disease Malignancy Medical History: Reports: None GI Medical History: Denies: Cirrhosis, Gastroesophageal Reflux Disease, Hepatitis, Peptic Ulcer Disease Musculoskeltal Medical History: Denies: Arthritis, Gout Psychiatric Medical History: Denies: Alcohol Dependency, Depression, Substance Abuse, Tobacco Dependency Traumatic Medical History: Reports: None Hematology: Reports: 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 Denies: Bleeding Tendencies Infectious Medical History: Reports: Methicillin-Resistant Staph Aureus Past Surgical History Past Surgical History: Reports: Orthopedic Surgery - right forefoot amputation, Vascular Surgery Social History Information Source: Relative Lives with: Family Smoking Status: Never Smoker Electronic Cigarette use?: No Frequency of Alcohol Use: None Hx Recreational Drug Use: No Drugs: None Hx Prescription Drug Abuse: No - Advance Directive Resuscitation Status: Full Code Surrogate healthcare decision maker:: Isabel Wheatley Family History Family History: DM, Hypertension Parental Family History Reviewed: Yes Children Family History Reviewed: No Sibling(s) Family History Reviewed.: Yes Medication/Allergy Home Medications: Silver Sulfadiazine [Silvadene 1% Cream 25 gm] 1 applic TP DAILY #1 tube 12/31/18 Allergies/Adverse Reactions: No Known Allergies Allergy (Verified 02/20/19 21:35) Review of Systems ROS unobtainable: Due to mental status Physical Exam Vital Signs: Temp Pulse Resp BP Pulse Ox 99.4 F 110 H 14 96/51 L 100 02/20/19 19:32 02/20/19 19:32 02/20/19 21:01 02/20/19 21:01 02/20/19 21:01 General appearance: PRESENT: no acute distress, cooperative, hard of hearing - Severe presbycusis noted Head exam: PRESENT: atraumatic, normocephalic Eye exam: PRESENT: conjunctiva pink. ABSENT: conjunctival injection, scleral icterus Ear exam: PRESENT: normal external ear exam. ABSENT: bleeding, drainage Mouth exam: PRESENT: dry mucosa, neck supple Neck exam: ABSENT: thyromegaly, tracheal deviation Respiratory exam: PRESENT: clear to auscultation cheryle, symmetrical, unlabored Cardiovascular exam: PRESENT: RRR - With frequent irregular beats. ABSENT: clicks, gallop, rubs Pulses: PRESENT: normal radial pulses. ABSENT: normal dorsalis pedis pul - Markedly decreased dorsalis pedis pulses bilaterally Vascular exam: PRESENT: normal capillary refill. ABSENT: pallor GI/Abdominal exam: PRESENT: normal bowel sounds, soft Rectal exam: PRESENT: deferred Extremities exam: PRESENT: other - Status post right forefoot amputation. ABSENT: joint swelling, pedal edema Musculoskeletal exam: PRESENT: other - Ulceration of right heel with eschar and purulent discharge. ABSENT: deformity, dislocation Neurological exam: PRESENT: altered - Lethargic, CN II-XII grossly intact, motor sensory deficit - Decreased sensation bilateral feet Psychiatric exam: PRESENT: flat affect, other - Lethargic Skin exam: PRESENT: dry, warm, other - Moderate erythema and mild edema of the right heel with an ulcerated area covered by a thin eschar and minimal purulent discharge noted exuding from the edges of the eschar. Heel is minimally to palpation.. ABSENT: jaundice, rash, urticaria Results Laboratory Results: 02/20/19 19:55 02/20/19 19:55 02/20/19 02/20/19 02/20/19 19:55 19:55 19:55 WBC 11.2 H RBC 3.21 L Hgb 9.5 L Hct 29.3 L MCV 92 MCH 29.5 MCHC 32.3 RDW 13.9 Plt Count 143 L Seg Neutrophils % Not Reportable VBG pH VBG pCO2 VBG HCO3 VBG Base Excess Sodium 137.1 Potassium 4.1 Chloride 100 Carbon Dioxide 26 Anion Gap 11 BUN 29 H Creatinine 1.57 H Est GFR ( Amer) 51 L Glucose 206 H Lactic Acid 2.3 H Calcium 8.6 Magnesium 1.7 Total Bilirubin 0.9 AST 15 L Alkaline Phosphatase 84 Total Protein 5.9 L Albumin 2.6 L 02/20/19 20:50 WBC RBC Hgb Hct MCV MCH MCHC RDW Plt Count Seg Neutrophils % VBG pH 7.40 VBG pCO2 41.8 VBG HCO3 25.4 VBG Base Excess 0.5 Sodium Potassium Chloride Carbon Dioxide Anion Gap BUN Creatinine Est GFR ( Amer) Glucose Lactic Acid Calcium Magnesium Total Bilirubin AST Alkaline Phosphatase Total Protein Albumin Assessment and Plan - Diagnosis (1) Cellulitis of right heel Is this a current diagnosis for this admission?: Yes Plan: Patient will be treated empirically with intravenous Zosyn and vancomycin pending wound and blood culture results. Surgical consultation will be obtained for debridement of the eschar and further treatment of the ulceration with evaluation of possible osteomyelitis that may require amputation. Patient will have available Nubain 5 to 10 mg IV every 3 hours on an as needed basis for control of pain using a sliding scale. (2) SIRS (systemic inflammatory response syndrome) Is this a current diagnosis for this admission?: Yes Plan: Serial lactic acids will be performed and patient's status will be monitored on a daily basis utilizing CBCs and metabolic profiles. Patient will receive IV hydration and empiric antibiotic therapy. (3) Diabetes mellitus type 2 in nonobese Is this a current diagnosis for this admission?: Yes Plan: Patient will be continued on his usual diabetic therapy and a diabetic diet. Hemoglobin A1c will be obtained to assess the efficacy of current therapy. Before meals and at bedtime Accu-Cheks will be performed with sliding scale insulin used to cover hyperglycemia and a hypoglycemic protocol in place. (4) Hypertension Qualifiers: Hypertension type: essential hypertension Qualified Code(s): I10 - Essential (primary) hypertension Is this a current diagnosis for this admission?: Yes Plan: Patient be continued on his usual antihypertensive regimen and his vital signs will be checked frequently throughout his hospital course. (5) Coronary artery disease Qualifiers: Coronary Disease-Associated Artery/Lesion type: [place] artery [place] vs. transplanted heart: [place] heart Associated angina: without angina Qualified Code(s): I25.10 - Atherosclerotic heart disease of [place] coronary artery without angina pectoris Is this a current diagnosis for this admission?: Yes Plan: Patient be continued on his current coronary artery disease therapeutic regimen. He will be monitored clinically for any changes in his cardiac status. (6) Hypothyroidism Qualifiers: Hypothyroidism type: unspecified Qualified Code(s): E03.9 - Hypothyroidism, unspecified Is this a current diagnosis for this admission?: Yes Plan: Patient will be continued on his usual thyroid replacement. A thyroid profile will be obtained if one has not been done within the last 6 months. (7) Presbycusis of both ears Is this a current diagnosis for this admission?: Yes Plan: Patient's presbycusis is noted and all physicians and staff will take care to make sure that adequate communication with the patient is accomplished utilizing his family members to aid in communication with him. - Time Time Spent with patient: 15-24 minutes Medications reviewed and adjusted accordingly: Yes Anticipated discharge: Home with Homehealth, SNF - Inpatient Certification Based on my medical assessment, after consideration of the patient's comorbidities, presenting symptoms, or acuity I expect that the services needed warrant INPATIENT care.: Yes I certify that my determination is in accordance with my understanding of Medicare's requirements for reasonable and necessary INPATIENT services [42 CFR 412.3e].: Yes Medical Necessity: Significant Comorbidiites Make Outpatient Treatment Too Risky, Need Close Monitoring Due to Risk of Patient Decompensation, Need For IV Fluids, Need for IV Antibiotics, Need for Surgery, Risk of Complication if Not Cared For in Hospital
[2019-02-21] MEDS: HEPARIN SOD (PORCINE) 5,000 UNIT/ML 1 ML VIAL SUBCUT SCH ×3 (06:23→21:50)
[2019-02-21] MEDS: PANTOPRAZOLE SODIUM 40 MG TABLET.DR PO SCH (06:29)
[2019-02-21] MEDS ORDERED: PIPERACILLIN/TAZOBACTAM 3.375 GM VIAL IV ONE (06:32)
[2019-02-21] MEDS: PIPERACILLIN SODIUM/TAZOBACTAM 3.375 GM in NORMAL SALINE 100 ML IV SCH ×2 (06:43→12:34)
[2019-02-21] MEDS: INSULIN REG, HUMAN 100 UNIT/ML 3 ML VIAL (PYX) SUBCUT SCH ×4 (09:36→21:49)
[2019-02-21] MEDS: DOCUSATE SODIUM 100 MG CAPSULE PO SCH ×2 (09:37→18:02)
--- NOTE | 2019-02-21 13:42 | PDOC CONSULTATION ---
Consultation Consult Date: 02/21/19 Provider Consulted: NAVNEET SANTIAGO Consult reason:: Right heel ulcer History of Present Illness Admission Date/PCP: 02/20/19 22:28 [facility] History of Present Illness: CAMILLE RAMIREZ is a 89 year old male who was admitted yesterday for fever and elevated lactic acid. Relative noted the right foot to be erythematous the past few days with a right heel ulcer. 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 Patient is diabetic Past Medical History Cardiac Medical History: Reports: Coronary Artery Disease, Hypertension, Per ipheral Vascular Disease Denies: Atrial Fibrillation, Congestive Heart Failure, Myocardial Infarction, Hyperlipidema Pulmonary Medical History: Denies: Asthma, Chronic Obstructive Pulmonary Disease (COPD) EENT Medical History: Reports: Ears - Severe presbycusis Denies: Cataracts Neurological Medical History: Denies: Hemorrhagic CVA, Ischemic CVA, Seizures Endocrine Medical History: Reports: Diabetes Mellitus Type 2, Hypothyroidism Denies: Diabetes Mellitus Type 1, Hyperthyroidism Renal/ Medical History: Reports: Chronic Kidney Disease Malignancy Medical History: Reports: None GI Medical History: Denies: Cirrhosis, Gastroesophageal Reflux Disease, Hepatitis, Peptic Ulcer Disease Musculoskeltal Medical History: Denies: Arthritis, Gout Psychiatric Medical History: Denies: Alcohol Dependency, Depression, Substance Abuse, Tobacco Dependency Traumatic Medical History: Reports: None Hematology: Reports: 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 Denies: Bleeding Tendencies Infectious Medical History: Reports: Methicillin-Resistant Staph Aureus Past Surgical History Past Surgical History: Reports: Orthopedic Surgery - right forefoot amputation, Vascular Surgery Social History Lives with: Family Smoking Status: Never Smoker Electronic Cigarette use?: No Frequency of Alcohol Use: None Hx Recreational Drug Use: No Drugs: None Hx Prescription Drug Abuse: No - Advance Directive Resuscitation Status: Full Code Family History Family History: DM, Hypertension Parental Family History Reviewed: Yes Children Family History Reviewed: No Sibling(s) Family History Reviewed.: No Medication/Allergy Allergies/Adverse Reactions: No Known Allergies Allergy (Verified 02/20/19 21:35) Review of Systems Constitutional: PRESENT: as per HPI Integumentary: PRESENT: wounds - Right heel painful ulcer Physical Exam Vital Signs: Temp Pulse Resp BP Pulse Ox 97.8 F 86 15 125/74 100 02/21/19 07:42 02/21/19 07:42 02/21/19 07:42 02/21/19 07:42 02/21/19 09:25 Intake & Output 02/20/19 02/21/19 02/22/19 06:59 06:59 06:59 Intake Total 1250 100 Balance 1250 100 Weight 70.5 kg General appearance: PRESENT: mild distress Rectal exam: PRESENT: deferred Extremities exam: PRESENT: other - Has a right heel ulcer with appears to be a dry scab and appears to be somewhat tender. Patient refuses to be examined properly when he keeps moving his leg while trying to be examined. Results Laboratory Results: 02/21/19 04:29 02/21/19 04:29 02/20/19 02/20/19 02/20/19 19:55 19:55 19:55 WBC 11.2 H RBC 3.21 L Hgb 9.5 L Hct 29.3 L MCV 92 MCH 29.5 MCHC 32.3 RDW 13.9 Plt Count 143 L Seg Neutrophils % Not Reportable VBG pH VBG pCO2 VBG HCO3 VBG Base Excess Sodium 137.1 Potassium 4.1 Chloride 100 Carbon Dioxide 26 Anion Gap 11 BUN 29 H Creatinine 1.57 H Est GFR ( Amer) 51 L Glucose 206 H Lactic Acid 2.3 H Calcium 8.6 Magnesium 1.7 Total Bilirubin 0.9 AST 15 L Alkaline Phosphatase 84 Total Protein 5.9 L Albumin 2.6 L TSH Free T4 Free T3 pg/mL 02/20/19 02/20/19 02/20/19 19:55 20:50 23:54 WBC RBC Hgb Hct MCV MCH MCHC RDW Plt Count Seg Neutrophils % VBG pH 7.40 VBG pCO2 41.8 VBG HCO3 25.4 VBG Base Excess 0.5 Sodium Potassium Chloride Carbon Dioxide Anion Gap BUN Creatinine Est GFR ( Amer) Glucose Lactic Acid 0.9 Calcium Magnesium Total Bilirubin AST Alkaline Phosphatase Total Protein Albumin TSH 0.02 L Free T4 2.87 H Free T3 pg/mL 2.15 L 02/21/19 02/21/19 02/21/19 04:29 04:29 04:29 WBC 13.0 H RBC 3.18 L Hgb 9.5 L Hct 28.8 L MCV 91 MCH 30.0 MCHC 33.1 RDW 13.5 Plt Count 152 Seg Neutrophils % VBG pH VBG pCO2 VBG HCO3 VBG Base Excess Sodium 135.8 L Potassium 4.0 Chloride 101 Carbon Dioxide 27 Anion Gap 8 BUN 28 H Creatinine 1.40 H Est GFR ( Amer) 58 L Glucose 240 H Lactic Acid 1.1 Calcium 8.2 L Magnesium 1.7 Total Bilirubin AST Alkaline Phosphatase Total Protein Albumin TSH Free T4 Free T3 pg/mL 02/21/19 08:14 WBC RBC Hgb Hct MCV MCH MCHC RDW Plt Count Seg Neutrophils % VBG pH VBG pCO2 VBG HCO3 VBG Base Excess Sodium Potassium Chloride Carbon Dioxide Anion Gap BUN Creatinine Est GFR ( Amer) Glucose Lactic Acid 1.5 Calcium Magnesium Total Bilirubin AST Alkaline Phosphatase Total Protein Albumin TSH Free T4 Free T3 pg/mL Impressions: Foot X-Ray 02/20/19 21:09 IMPRESSION: 1. Focal soft tissue air posterior to the calcaneus, new since 12/30/2018, likely an ulcerated wound. 2. No radiographic evidence for osteomyelitis. Assessment & Plan - Diagnosis (1) Cellulitis of right heel Is this a current diagnosis for this admission?: Yes (2) Diabetes mellitus type 2 in nonobese Is this a current diagnosis for this admission?: Yes - Time Time Spent: 30 to 50 Minutes - Inpatient Certification Medical Necessity: Need for IV Antibiotics - Plan Summary Plan Summary: At this point the ulcer on the right heel appears to be dry with no obvious abscess underneath and therefore no obvious indication to debride but we will reevaluate when patient is more cooperative. Meantime continue with IV a ntibiotics
[2019-02-21] MEDS: RINGERS SOLUTION,LACTATED 1,000 ML IV PRN ×2 (14:34→20:31)
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
[2019-02-21] MEDS ORDERED: VANCOMYCIN HCL 0 MG in DEXTROSE 5%-WATER 250 ML IV NR (16:00)
[2019-02-21] MEDS: ACETAMINOPHEN 325 MG TABLET PO PRN (18:00)
[2019-02-21] MEDS: VANCOMYCIN HCL 1,000 MG in DEXTROSE 5%-WATER 250 ML IV SCH (21:57)
[2019-02-21] MEDS ORDERED: PIPERACILLIN/TAZOBACTAM 3.375 GM VIAL IV PRN ×2 (22:30)
--- NOTE | 2019-02-21 23:49 | Progress Note ---
Provider Note Provider Note: Critical care note: 02/21/2019 Critical care start time: 10:22 PM Critical care issue: Positive anaerobic blood culture (gram-negative rods) The patient's nurse called me to inform me of the lab report of a positive anaerobic blood culture in 1 of 2 bottles a gram-negative soledad was present. Further identification and antimicrobial sensitivity for this organism is pending. I came to evaluate the patient and found him in good spirits and talkative, though his severe presbycusis limits the conversation. On exam of his chest his lungs are clear to auscultation, his heart shows a regular rate and rhythm with dramatically fewer irregular beats than on his initial presentation. His abdomen is soft to exam with bowel sounds positive and no apparent tenderness. His right lower extremity is unchanged from his previous exam. The patient's Zosyn had been stopped earlier in the day and at this time I felt it was most prudent to restart the Zosyn at the same dosage level. The vancomycin originally prescribed will be continued. I feel would be best to continue the Zosyn until the culture reports and sensitivities are available. Critical care end time: 11:47 PM Total critical care time: 16 minutes
--- NOTE | 2019-02-22 00:21 | EKG REPORT ---
SEVERITY:- ABNORMAL ECG - SINUS RHYTHM MULTIPLE ATRIAL PREMATURE COMPLEXES : Confirmed by: Tucker Rashid 22-Feb-2019 00:21:09
[2019-02-22] MEDS: RINGERS SOLUTION,LACTATED 1,000 ML IV PRN (02:41)
[2019-02-22] MEDS ORDERED: PIPERACILLIN SODIUM/TAZOBACTAM 3.375 GM in NORMAL SALINE 100 ML IV SCH ×4 (03:00)
[2019-02-22] MEDS: HEPARIN SOD (PORCINE) 5,000 UNIT/ML 1 ML VIAL SUBCUT SCH ×3 (05:07→21:40)
[2019-02-22] MEDS: PANTOPRAZOLE SODIUM 40 MG TABLET.DR PO SCH (05:08)
[2019-02-22 06:06] LABS: HEMATOCRIT 28.4 % (37.9-51.0); HEMOGLOBIN 9.3 g/dL (13.5-17.0); MEAN CORPUSCULAR HEMOGLOBIN 29.6 pg (27.0-33.4); MEAN CORPUSCULAR HGB CONC 32.9 g/dL (32.0-36.0); MEAN CORPUSCULAR VOLUME 90 fl (80-97); PLATELET COUNT 157 10^3/uL (150-450); RED BLOOD COUNT 3.15 10^6/uL (4.35-5.55); RED CELL DISTRIBUTION WIDTH 13.8 % (11.5-14.0); WHITE BLOOD COUNT 8.5 10^3/uL (4.0-10.5)
[2019-02-22 06:24] LABS: ALBUMIN 2.3 g/dL (3.5-5.0); ALKALINE PHOSPHATASE 72 U/L (38-126); ANION GAP 7 (5-19); ASPARTATE AMINO TRANSFERASE 15 U/L (17-59); BILIRUBIN,DIRECT 0.2 mg/dL (0.0-0.4); BILIRUBIN,TOTAL 0.5 mg/dL (0.2-1.3); BLOOD UREA NITROGEN 20 mg/dL (7-20); CARBON DIOXIDE 27 mmol/L (22-30); CHLORIDE 102 mmol/L (98-107); CHOLESTEROL 153.65 mg/dL (0-200); GLUCOSE 173 mg/dL (75-110); POTASSIUM 3.7 mmol/L (3.6-5.0); TOTAL PROTEIN 5.6 g/dL (6.3-8.2); TRIGLYCERIDES 139 mg/dL (<150)
[2019-02-22 06:35] LABS: DIRECT LDL 100 mg/dL (<100)
[2019-02-22] MEDS ORDERED: INFLUENZA QUAD (6MOS+) 2019-20 VAC 0.5 ML SYR IM ONE (08:00)
[2019-02-22] MEDS: INSULIN REG, HUMAN 100 UNIT/ML 3 ML VIAL (PYX) SUBCUT SCH ×4 (09:38→21:38)
[2019-02-22] MEDS: DOCUSATE SODIUM 100 MG CAPSULE PO SCH ×2 (09:45→18:03)
[2019-02-22] MEDS: PIPERACILLIN SODIUM/TAZOBACTAM 3.375 GM in NORMAL SALINE 100 ML IV SCH ×3 (09:45→21:34)
[2019-02-22] MEDS: NALBUPHINE HCL INJ 10 MG/1 ML AMPULE IV PRN ×2 (09:50→18:06)
[2019-02-22] MEDS ORDERED: ONDANSETRON HCL INJ/PF 4 MG/2 ML SDV IV PRN (10:35)
[2019-02-22] MEDS ORDERED: FENTANYL CITRATE INJ/PF 100 MCG/2 ML AMPUL IV PRN ×3 (10:35)
[2019-02-22] MEDS ORDERED: MEPERIDINE HCL/PF INJ 25 MG/1 ML DISP.SYRIN IV PRN (10:35)
[2019-02-22] MEDS ORDERED: DIPHENHYDRAMINE HCL 50 MG/ML VIAL IV PRN (10:35)
[2019-02-22] MEDS ORDERED: PROMETHAZINE HCL INJ 25 MG/1 ML VIAL IV PRN ×2 (10:35)
[2019-02-22] MEDS ORDERED: OXYCODONE-ACETAMINOPHEN 5-325 MG TABLET PO PRN ×2 (10:35)
[2019-02-22] MEDS ORDERED: LIDOCAINE 2% INJ-PF (20 MG/ML) 10 ML AMPUL ONE (11:50)
[2019-02-22] MEDS ORDERED: MIDAZOLAM 2 MG/2 ML INJ ONE (11:50)
[2019-02-22] MEDS ORDERED: FENTANYL CITRATE INJ/PF 100 MCG/2 ML AMPUL ONE (11:50)
[2019-02-22] MEDS ORDERED: PROPOFOL INJ 200 MG/20 ML VIAL IV ONE (11:51)
--- NOTE | 2019-02-22 12:09 | PDOC PROGRESS REPORT ---
Subjective Progress Note for:: 02/22/19 Subjective:: Patient more cooperative, complaining of right foot pain. Son at bedside who is healthcare power of senior attorney. Reason For Visit: SIRS,CELLULITIS OF THE RIGHT HEEL,DM TYPE II,HYPER Physical Exam Vital Signs: Temp Pulse Resp BP Pulse Ox 98.7 F 55 L 18 113/77 98 02/22/19 08:20 02/22/19 08:20 02/22/19 08:20 02/22/19 08:20 02/22/19 08:20 Intake & Output 02/21/19 02/22/19 02/23/19 06:59 06:59 06:59 Intake Total 1250 3420 100 Balance 1250 3420 100 Weight 70.5 kg 71.1 kg General appearance: PRESENT: mild distress Musculoskeletal exam: PRESENT: other - Lateral venous stasis changes, chronic; with tight lipoma dramatic sclerotic skin. Right transmetatarsal amputation site well-healed; eschar right heel with purulent discharge maximal to the eschar on the medial surface of the foot. Unable to palpate pulses in the feet. Neurological exam: PRESENT: awake, other - Indication somewhat impaired due to language barrier Results Laboratory Results: 02/22/19 05:35 02/22/19 05:35 02/22/19 02/22/19 05:35 05:35 WBC 8.5 RBC 3.15 L Hgb 9.3 L Hct 28.4 L MCV 90 MCH 29.6 MCHC 32.9 RDW 13.8 Plt Count 157 Sodium 136.2 L Potassium 3.7 Chloride 102 Carbon Dioxide 27 Anion Gap 7 BUN 20 Creatinine 1.19 Est GFR ( Amer) > 60 Glucose 173 H Calcium 8.0 L Magnesium 1.5 L Total Bilirubin 0.5 AST 15 L Alkaline Phosphatase 72 Total Protein 5.6 L Albumin 2.3 L Triglycerides 139 Cholesterol 153.65 LDL Cholesterol Direct 100 VLDL Cholesterol 28.0 HDL Cholesterol 21 L Impressions: Foot X-Ray 02/20/19 21:09 IMPRESSION: 1. Focal soft tissue air posterior to the calcaneus, new since 12/30/2018, likely an ulcerated wound. 2. No radiographic evidence for osteomyelitis. Assessment & Plan - Diagnosis (1) Cellulitis of right heel Is this a current diagnosis for this admission?: Yes Plan: Impression :pus draining from right heel in 89-year-old male with multiple chronic medical problems including diabetes, peripheral vascular disease, status post remote right transmetatarsal amputation ReCommendations: 1. Patient needs operative intervention if the patient and family are interested in pursuing reasonably aggressive care. A BKA may serve the patient, pending condition of skin, and vascular supply. Higher level amputation may be required. 2. We will set patient up for right BKA later today. This was discussed with patient, nursing staff, patient's son. Patient's son who is the healthcare power of senior attorney expresses understanding agrees to proceed. (2) SIRS (systemic inflammatory response syndrome) Is this a current diagnosis for this admission?: Yes - Time Time Spent with patient: 15-24 minutes Smoking Cessation Education: over 10 minutes Medications reviewed and adjusted accordingly: Yes Anticipated discharge: Home
[2019-02-22] MEDS ORDERED: EPHEDRINE SULFATE INJ 50 MG/1 ML AMPULE ONE (13:44)
--- NOTE | 2019-02-22 14:52 | PDOC PROGRESS REPORT ---
Subjective Progress Note for:: 02/22/19 Subjective:: CAMILLE RAMIREZ is a 89 year old male who presented to the emergency room with an acute fever. The patient is poorly communicative due to severe presbycusis and acute altered mental status with lethargy due to his fever. His son presented with the patient and provided his historical input. The patient developed a fever up to 101.2 F earlier in the day and has been lethargic but has not complained of pain. His son has noticed that his right heel has become more swo llen and red over the last few days. In the emergency room the patient was found to have an erythematous edematous right heel with an ulcerated area covered by an eschar draining purulent exudate. The wound was cultured and blood cultures were obtained prior to starting antibiotics in the emergency room. Patient was noted to have a lactic acid of 2.3 and a mildly elevated white blood count 11,200. He was subsequently admitted to the hospital for further evaluation and treatment. 02/21/2019. No acute events overnight. Unfortunately patient is very upset and agitated about his breakfast this morning refuses to be examined, refusing to talk to me. Family not present at the bedside. 02/22/2019. No acute events overnight. Patient more cooperative and calm today. Daughter who is power of sports attorney and his eldest grandson who stated that he is very involved in his grandfather's care or both present in the room. There is stating that patient used to live in [place] and recently moved to [place]. When I inquired about his medical conditions the could not give me any good answers. They called patient's oldest daughter in [place] whom he used to live with. Provided me with a list of his medication in [place] which are levothyroxine, isosorbide mononitrate, apixaban, diltiazem, ranitidine and cyanocobalamin. They could not provide dosage. As per family and how it seems from his medication list patient does not have any history of CAD but suffers from A. fib, diabetes and hypothyroidism. Patient also evaluated by surgery at home recommend BKA is referred to note. Family is in agreement with the plan. He also mentioned that patient is quite agitated especially during the night and suffers from dementia however he is not been treated for it. They would like something to be started for him to have less agitations. Reason For Visit: SIRS,CELLULITIS OF THE RIGHT HEEL,DM TYPE II,HYPER Physical Exam Vital Signs: Temp Pulse Resp BP Pulse Ox 98.6 F 83 14 103/48 L 91 L 02/22/19 11:31 02/22/19 11:31 02/22/19 11:31 02/22/19 11:31 02/22/19 11:31 Intake & Output 02/21/19 02/22/19 02/23/19 06:59 06:59 06:59 Intake Total 1250 3420 100 Balance 1250 3420 100 Weight 70.5 kg 71.1 kg General appearance: PRESENT: no acute distress, well-developed, well-nourished Head exam: PRESENT: atraumatic, normocephalic Respiratory exam: PRESENT: clear to auscultation cheryle. ABSENT: rales, rhonchi, wheezes Cardiovascular exam: PRESENT: RRR. ABSENT: diastolic murmur, rubs, systolic murmur GI/Abdominal exam: PRESENT: normal bowel sounds, soft. ABSENT: distended, guarding, mass, organolmegaly, rebound, tenderness Extremities exam: PRESENT: full ROM, other - Right lower extremity TMA. With necrotic area in his right heel. Pus coming out from the medial plantar aspect of the foot with severe bilateral venous stasis.. ABSENT: calf tenderness, clubbing, pedal edema Results Laboratory Results: 02/22/19 05:35 02/22/19 05:35 02/22/19 02/22/19 05:35 05:35 WBC 8.5 RBC 3.15 L Hgb 9.3 L Hct 28.4 L MCV 90 MCH 29.6 MCHC 32.9 RDW 13.8 Plt Count 157 Sodium 136.2 L Potassium 3.7 Chloride 102 Carbon Dioxide 27 Anion Gap 7 BUN 20 Creatinine 1.19 Est GFR ( Amer) > 60 Glucose 173 H Calcium 8.0 L Magnesium 1.5 L Total Bilirubin 0.5 AST 15 L Alkaline Phosphatase 72 Total Protein 5.6 L Albumin 2.3 L Triglycerides 139 Cholesterol 153.65 LDL Cholesterol Direct 100 VLDL Cholesterol 28.0 HDL Cholesterol 21 L Impressions: Foot X-Ray 02/20/19 21:09 IMPRESSION: 1. Focal soft tissue air posterior to the calcaneus, new since 12/30/2018, likely an ulcerated wound. 2. No radiographic evidence for osteomyelitis. Assessment and Plan - Diagnosis (1) Cellulitis of right heel Is this a current diagnosis for this admission?: Yes Plan: Polymicrobial given patient's history of PVD and diabetes. Blood culture growing gram-positive cocci and anaerobes. Patient was admitted on December for for right lateral foot stage III burn. No intervention was done at that point, silver nitrate and wound care was recommended. Surgery consulted, initially nonsurgical management was recommended however upon reevaluation by Dr. Soto he is recommending right BKA. Patient is scheduled for right BKA later today. Day 3 IV antibiotics. Day 3 IV Zosyn. Day 3 IV vancomycin. Continue empiric IV antibiotics, follow-up cultures. (2) Coronary artery disease Qualifiers: Coronary Disease-Associated Artery/Lesion type: [place] artery [place] vs. transplanted heart: saxman heart Associated angina: without angina Qualified Code(s): I25.10 - Atherosclerotic heart disease of saxman coronary artery without angina pectoris Is this a current diagnosis for this admission?: Yes Plan: As per family patient does not have any CAD but history of A. fib. Will DC beta-blockers. Restart diltiazem. (3) Diabetes mellitus type 2 in nonobese Is this a current diagnosis for this admission?: Yes Plan: Controlled. Hemoglobin A1c 6.6. Not on home oral hypoglycemic. Continue basal, prandial and sliding scale insulin. Accu-Chek, hypoglycemic protocol, adjust meds as needed. Outpatient PCP follow-up. (4) Hypertension Qualifiers: Hypertension type: essential hypertension Qualified Code(s): I10 - Essential (primary) hypertension Is this a current diagnosis for this admission?: Yes Plan: Euvolemic. Normotensive. DC beta-elo. Restart diltiazem. Monitor vitals adjust meds as needed. (5) SIRS (systemic inflammatory response syndrome) Is this a current diagnosis for this admission?: Yes Plan: Due to underlying infectious process. WBC trending down. Vitals stable. Continue treating for underlying infectious process. (6) Bacteremia Is this a current diagnosis for this admission?: Yes Plan: Polymicrobial. Likely source right foot. Wound culture 1/2 growing gram-positive cocci and gram-negative rods. Continue empiric IV antibiotics. Repeat blood culture. (7) Hypothyroidism Qualifiers: Hypothyroidism type: unspecified Qualified Code(s): E03.9 - Hypothyroidism, unspecified Is this a current diagnosis for this admission?: Yes Plan: TSH 0.02. T4 2.87. T3 2.15. Mildly depressed TSH. History of hypothyroidism on levothyroxine however family could not provide me with the dosage. Will start on levothyroxine 50 MCG and follow-up with PCP for reevaluation of thyroid function test in 6 weeks.
--- NOTE | 2019-02-22 15:36 | Operative Report ---
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 He was then taken to the operating room where he underwent spinal anesthesia by Dr. Macias. Ramirez catheter was inserted with. The right foot was isolated, and the right leg was prepped and draped in sterile fashion with Betadine Surgical plan surgical timeout were conducted. Markings were made on the skin for a standard right below the knee amputation, with the upper incision planned approximately 1 handbreadth below the anterior tibial tuberosity, and the posterior flap twice the length of the anterior. Of note the patient had chronic venous stasis changes to the right lower extremity consistent with venous hypertension. The skin was incised with a #10 blade. Multiple official lateral veins were cauterized or clipped with Hemoclip applicator as encountered. The fascia and muscle was divided with electrocautery. The periosteum surrounding the tibia was stripped away with cautery then periosteal elevator. A suitable site for transection of the tibia was chosen, several centimeters below the tibial tuberosity. The bone was divided with the oscillating saw. The anterior tibial nerve vein and artery complex was ligated with 0 Vicryl ties. Of note the artery was of very decent caliber and bled briskly. The peroneal complex was identified, and clamped as a unit. The peroneal artery was attenuated. The periosteum overlying the fibula was stripped with the periosteal elevator and the fibula divided with the oscillating saw. Remaining muscle was divided. The posterior tibial artery vein and nerve were also taken with 0 Vicryl ties. Of note the artery was of substantial caliber, patent and bled briskly. The remaining posterior soft tissue and skin attachments were divided with knife and electrocautery. Stump was washed and miscellaneous small vessels were oversewn with 3-0 Vicryl suture. The transected fibula was resected for another 2 cm to be even with the transected tibia. The tibial edge was taken down with respiratory file. We felt the stump was safe for closure. Certainly the vasculature was outstanding in terms of arterial supply; venous hypertension again present. Images were viable. Myodesis was accomplished with multiple 2-0 Vicryl sutures, and skin closed with 3-0 Ethilon suture and pascual. Xeroform 4 x 4's Kerlix and Dave wrap applied. Patient tolerated procedure well, taken recovery in stabl e condition. Plan: 1. Bedrest today 2. Get physical therapy involved tomorrow 3. Anticipate discontinuing Ramirez catheter 4. Continue intravenous antibiotics for another 24 hours then consider discontinuation.
[2019-02-22] MEDS: QUETIAPINE FUMARATE 25 MG TABLET PO SCH (21:39)
[2019-02-22] MEDS: DILTIAZEM HCL 120 MG CAP.SR.24H PO SCH (21:40)
[2019-02-22] MEDS: VANCOMYCIN HCL 1,000 MG in DEXTROSE 5%-WATER 250 ML IV SCH (22:26)
[2019-02-23] MEDS: PIPERACILLIN SODIUM/TAZOBACTAM 3.375 GM in NORMAL SALINE 100 ML IV SCH ×4 (03:24→20:37)
[2019-02-23] MEDS: NALBUPHINE HCL INJ 10 MG/1 ML AMPULE IV PRN ×2 (03:28→11:06)
[2019-02-23 05:42] LABS: HEMATOCRIT 27.5 % (37.9-51.0); HEMOGLOBIN 9.2 g/dL (13.5-17.0); MEAN CORPUSCULAR HEMOGLOBIN 29.9 pg (27.0-33.4); MEAN CORPUSCULAR HGB CONC 33.5 g/dL (32.0-36.0); MEAN CORPUSCULAR VOLUME 89 fl (80-97); PLATELET COUNT 146 10^3/uL (150-450); RED BLOOD COUNT 3.08 10^6/uL (4.35-5.55); RED CELL DISTRIBUTION WIDTH 13.5 % (11.5-14.0); WHITE BLOOD COUNT 6.9 10^3/uL (4.0-10.5)
[2019-02-23] MEDS: HEPARIN SOD (PORCINE) 5,000 UNIT/ML 1 ML VIAL SUBCUT SCH ×2 (05:52→13:24)
[2019-02-23] MEDS: PANTOPRAZOLE SODIUM 40 MG TABLET.DR PO SCH (05:55)
[2019-02-23] MEDS: LEVOTHYROXINE SODIUM 0.05 MG TABLET PO SCH (05:55)
[2019-02-23] MEDS ORDERED: LEVOTHYROXINE SODIUM 0.075 MG TABLET PO SCH (06:00)
[2019-02-23] MEDS ORDERED: MAGNESIUM SULFATE/D5W 1 GM/100 ML RTUPB IV ONE (09:00)
[2019-02-23] MEDS: INSULIN REG, HUMAN 100 UNIT/ML 3 ML VIAL (PYX) SUBCUT SCH ×4 (09:01→22:23)
[2019-02-23] MEDS: ISOSORBIDE MONONITRATE 30 MG TAB.ER.24H PO SCH (09:20)
[2019-02-23] MEDS: LISINOPRIL 5 MG TABLET PO SCH (09:20)
[2019-02-23] MEDS: DOCUSATE SODIUM 100 MG CAPSULE PO SCH ×2 (09:20→17:53)
--- NOTE | 2019-02-23 13:48 | PDOC PROGRESS REPORT ---
Subjective Progress Note for:: 02/23/19 Subjective:: patient apparently without pains according to the daughter who is at bedside. Reason For Visit: SIRS,CELLULITIS OF THE RIGHT HEEL,DM TYPE II,HYPER Physical Exam Vital Signs: Temp Pulse Resp BP Pulse Ox 98.4 F 88 15 96/54 L 94 02/23/19 11:22 02/23/19 11:22 02/23/19 11:22 02/23/19 11:22 02/23/19 11:22 Intake & Output 02/22/19 02/23/19 02/24/19 06:59 06:59 06:59 Intake Total 3420 3800 200 Output Total 2035 1600 Balance 3420 1765 -1400 Weight 71.1 kg 71.1 kg Exam: Dressing around the right BKA stump is dry Results Laboratory Results: 02/23/19 05:20 02/22/19 05:35 02/23/19 02/23/19 05:20 05:20 WBC 6.9 RBC 3.08 L Hgb 9.2 L Hct 27.5 L MCV 89 MCH 29.9 MCHC 33.5 RDW 13.5 Plt Count 146 L Magnesium 1.5 L 02/20/19 21:09 Foot - Right Heel Gram Stain - Final Impressions: Foot X-Ray 02/20/19 21:09 IMPRESSION: 1. Focal soft tissue air posterior to the calcaneus, new since 12/30/2018, likely an ulcerated wound. 2. No radiographic evidence for osteomyelitis. Assessment & Plan - Diagnosis (1) Cellulitis of right heel Is this a current diagnosis for this admission?: Yes (2) Diabetes mellitus type 2 in nonobese Is this a current diagnosis for this admission?: Yes - Time Time Spent with patient: 15-24 minutes - Inpatient Certification Medical Necessity: Need for IV Antibiotics - Plan Summary Plan Summary: Since the source of infection has been removed with the below-knee amputation, patient does not need any prolonged antibiotic therapy. Arrangements can be made to transfer the patient to [facility] or rehab facility. Discharge planning nurse was consulted. Dressing can be changed in the next 24 to 48hours.
--- NOTE | 2019-02-23 16:59 | PDOC PROGRESS REPORT ---
Subjective Progress Note for:: 02/23/19 Subjective:: CAMILLE RAMIREZ is a 89 year old male who presented to the emergency room with an acute fever. The patient is poorly communicative due to severe presbycusis and acute altered mental status with lethargy due to his fever. His son presented with the patient and provided his historical input. The patient developed a fever up to 101.2 F earlier in the day and has been lethargic but has not complained of pain. His son has noticed that his right heel has become more swo llen and red over the last few days. In the emergency room the patient was found to have an erythematous edematous right heel with an ulcerated area covered by an eschar draining purulent exudate. The wound was cultured and blood cultures were obtained prior to starting antibiotics in the emergency room. Patient was noted to have a lactic acid of 2.3 and a mildly elevated white blood count 11,200. He was subsequently admitted to the hospital for further evaluation and treatment. 02/21/2019. No acute events overnight. Unfortunately patient is very upset and agitated about his breakfast this morning refuses to be examined, refusing to talk to me. Family not present at the bedside. 02/22/2019. No acute events overnight. Patient more cooperative and calm today. Daughter who is power of mergers and acquisitions attorney and his eldest grandson who stated that he is very involved in his grandfather's care or both present in the room. There is stating that patient used to live in [place] and recently moved to [place]. When I inquired about his medical conditions the could not give me any good answers. They called patient's oldest daughter in [place] whom he used to live with. Provided me with a list of his medication in [place] which are levothyroxine, isosorbide mononitrate, apixaban, diltiazem, ranitidine and cyanocobalamin. They could not provide dosage. As per family and how it seems from his medication list patient does not have any history of CAD but suffers from A. fib, diabetes and hypothyroidism. Patient also evaluated by surgery at home recommend BKA is referred to note. Family is in agreement with the plan. He also mentioned that patient is quite agitated especially during the night and suffers from dementia however he is not been treated for it. They would like something to be started for him to have less agitations. 02/23/2019. Day 1 status post right BKA, patient is calmer today, has not been agitated since being started on Seroquel last night, denies any fever, chills, nausea, vomiting, diarrhea, constipation or any urinary symptoms. Reason For Visit: SIRS,CELLULITIS OF THE RIGHT HEEL,DM TYPE II,HYPER Physical Exam Vital Signs: Temp Pulse Resp BP Pulse Ox 98.4 F 88 15 96/54 L 94 02/23/19 11:22 02/23/19 11:22 02/23/19 11:22 02/23/19 11:22 02/23/19 11:22 Intake & Output 02/22/19 02/23/19 02/24/19 06:59 06:59 06:59 Intake Total 3420 3800 200 Output Total 2035 1600 Balance 3420 1765 -1400 Weight 71.1 kg 71.1 kg General appearance: PRESENT: no acute distress, well-developed, well-nourished Head exam: PRESENT: atraumatic, normocephalic Respiratory exam: PRESENT: clear to auscultation cheryle. ABSENT: rales, rhonchi, wheezes Cardiovascular exam: PRESENT: irregular rhythm. ABSENT: diastolic murmur, rubs, systolic murmur GI/Abdominal exam: PRESENT: normal bowel sounds, soft. ABSENT: distended, guarding, mass, organolmegaly, rebound, tenderness Extremities exam: PRESENT: full ROM, other - Right BKA. Dressing in place.. ABSENT: calf tenderness, clubbing, pedal edema Neurological exam: PRESENT: alert, awake, oriented to person, oriented to place, oriented to time, oriented to situation, CN II-XII grossly intact. ABSENT: motor sensory deficit Results Laboratory Results: 02/23/19 05:20 02/22/19 05:35 02/23/19 02/23/19 05:20 05:20 WBC 6.9 RBC 3.08 L Hgb 9.2 L Hct 27.5 L MCV 89 MCH 29.9 MCHC 33.5 RDW 13.5 Plt Count 146 L Magnesium 1.5 L 02/20/19 21:09 Foot - Right Heel Gram Stain - Final Impressions: Foot X-Ray 02/20/19 21:09 IMPRESSION: 1. Focal soft tissue air posterior to the calcaneus, new since 12/30/2018, likely an ulcerated wound. 2. No radiographic evidence for osteomyelitis. Assessment and Plan - Diagnosis (1) Diabetic foot infection Is this a current diagnosis for this admission?: Yes Plan: Day 1 status post right BKA. Surgery consulted, initially nonsurgical management was recommended however upon reevaluation by Dr. Soto he is recommending right BKA. Continue wound care and physical therapy. Continue empiric IV antibiotics for 1 more day. IV antibiotics could be switched to p.o. antibiotics tomorrow. Patient will need to be transferred to rehab once surgery signed off. Follow-up wound and blood culture. Day 4 IV antibiotics. Day 4 IV Zosyn. Day 4 IV vancomycin. Continue empiric IV antibiotics for 1 more day. DC antibiotics tomorrow. Could be switched to p.o. antibiotics if necessary. (2) Cellulitis of right heel Is this a current diagnosis for this admission?: Yes Plan: Status post right BKA. Source of infection removed. (3) Diabetes mellitus type 2 in nonobese Is this a current diagnosis for this admission?: Yes Plan: Controlled. Hemoglobin A1c 6.6. Not on home oral hypoglycemic. Continue basal, prandial and sliding scale insulin. Accu-Chek, hypoglycemic protocol, adjust meds as needed. Outpatient PCP follow-up. (4) Hypertension Qualifiers: Hypertension type: essential hypertension Qualified Code(s): I10 - Essential (primary) hypertension Is this a current diagnosis for this admission?: Yes Plan: Euvolemic. Normotensive. DC beta-elo. Restart diltiazem. Continue Idmur Started on low does lisinopril. Monitor vitals adjust meds as needed. (5) SIRS (systemic inflammatory response syndrome) Is this a current diagnosis for this admission?: Yes Plan: Due to underlying infectious process. WBC trending down. Vitals stable. Continue treating for underlying infectious process. (6) Bacteremia Is this a current diagnosis for this admission?: Yes Plan: Polymicrobial. Likely source right foot. Blood cultures are growing Staphylococcus species, gram-positive cocci in cluste rs and Bacteroides. Day 4 IV antibiotics. Day 4 IV Zosyn. Day 4 IV vancomycin. Repeat blood culture no growth so far. Continue empiric IV antibiotics. Antibiotics could be DC'd or switch to p.o. once a second blood culture has been finalized. (7) Hypothyroidism Qualifiers: Hypothyroidism type: unspecified Qualified Code(s): E03.9 - Hypothyroidism, unspecified Is this a current diagnosis for this admission?: Yes Plan: TSH 0.02. T4 2.87. T3 2.15. Mildly depressed TSH. History of hypothyroidism on levothyroxine however family could not provide me with the dosage. Will start on levothyroxine 50 MCG and follow-up with PCP for reevaluation of thyroid function test in 6 weeks. (8) History of atrial fibrillation Is this a current diagnosis for this admission?: Yes Plan: Rate controlled. Takes diltiazem and Eliquis at home. I have restarted diltiazem and Eliquis was held for surgery. I have talked to Dr. Alfaro from surgery who started that Eliquis can be started tomorrow. I have discussed risk and benefit of continuing Eliquis given patient's age and risk of falls, with daughter who is the POA and she had decided to continue Eliquis at this point. (9) Agitation Is this a current diagnosis for this admission?: Yes Plan: Likely due to underlying worsening dementia. I have started patient on 50 mg of Seroquel nightly with good results. Please decrese dosage if patient becomes too somnolent. Outpatient PCP follow-up.
[2019-02-23 21:34] LABS: VANCOMYCIN,TROUGH 14.8 ug/mL (5.0-20.0)
[2019-02-23] MEDS: VANCOMYCIN HCL 1,000 MG in DEXTROSE 5%-WATER 250 ML IV SCH (22:24)
[2019-02-23] MEDS: ACETAMINOPHEN 325 MG TABLET PO PRN (22:24)
[2019-02-23] MEDS: QUETIAPINE FUMARATE 25 MG TABLET PO SCH (22:24)
[2019-02-24] MEDS: HEPARIN SOD (PORCINE) 5,000 UNIT/ML 1 ML VIAL SUBCUT SCH ×3 (00:49→15:05)
[2019-02-24] MEDS: DILTIAZEM HCL 120 MG CAP.SR.24H PO SCH ×2 (00:49→21:25)
[2019-02-24] MEDS: PIPERACILLIN SODIUM/TAZOBACTAM 3.375 GM in NORMAL SALINE 100 ML IV SCH ×4 (03:13→21:25)
[2019-02-24] MEDS: PANTOPRAZOLE SODIUM 40 MG TABLET.DR PO SCH (05:25)
[2019-02-24] MEDS: LEVOTHYROXINE SODIUM 0.05 MG TABLET PO SCH (05:25)
[2019-02-24 07:35] LABS: APPEARANCE,URINE CLEAR; BILIRUBIN,URINE NEGATIVE (NEGATIVE); COLOR,URINE STRAW; GLUCOSE, URINE NEGATIVE (NEGATIVE); KETONES,URINE NEGATIVE (NEGATIVE); LEUKOCYTE ESTERASE,URINE NEGATIVE (NEGATIVE); NITRITE,URINE NEGATIVE (NEGATIVE); PROTEIN,URINE NEGATIVE (NEGATIVE); URINE SPECIFIC GRAVITY 1.004; UROBILINOGEN,URINE NEGATIVE mg/dL (<2.0)
[2019-02-24 08:13] LABS: URINE AMPHETAMINES SCREEN NEGATIVE; URINE BARBITURATES SCREEN NEGATIVE; URINE BENZODIAZEPINES SCREEN NEGATIVE; URINE COCAINE SCREEN NEGATIVE; URINE MARIJUANA (THC) SCREEN NEGATIVE; URINE METHADONE SCREEN NEGATIVE; URINE PHENCYCLIDINE SCREEN NEGATIVE
[2019-02-24] MEDS: INSULIN REG, HUMAN 100 UNIT/ML 3 ML VIAL (PYX) SUBCUT SCH ×4 (09:19→22:31)
[2019-02-24] MEDS: ISOSORBIDE MONONITRATE 30 MG TAB.ER.24H PO SCH (09:29)
[2019-02-24] MEDS: DOCUSATE SODIUM 100 MG CAPSULE PO SCH ×2 (09:29→17:42)
[2019-02-24] MEDS: LISINOPRIL 5 MG TABLET PO SCH (09:29)
[2019-02-24] MEDS: NALBUPHINE HCL INJ 10 MG/1 ML AMPULE IV PRN (12:35)
--- NOTE | 2019-02-24 17:21 | PDOC PROGRESS REPORT ---
Subjective Progress Note for:: 02/24/19 Subjective:: Some pains along the right below-knee amputation stump Reason For Visit: SIRS,CELLULITIS OF THE RIGHT HEEL,DM TYPE II,HYPER Physical Exam Vital Signs: Temp Pulse Resp BP Pulse Ox 97.6 F 48 L 18 119/56 L 100 02/24/19 08:21 02/24/19 08:21 02/24/19 08:21 02/24/19 08:21 02/24/19 08:21 Intake & Output 02/23/19 02/24/19 02/25/19 06:59 06:59 06:59 Intake Total 3800 870 100 Output Total 2035 2600 Balance 1765 -1730 100 Weight 71.1 kg 68.8 kg Exam: Right BKA stump dressings were changed. The stump looks good. Continue with changing her dressings every 2 to 3 days. Results Laboratory Results: 02/23/19 05:20 02/24/19 08:01 02/24/19 02/24/19 07:05 08:01 Creatinine 1.29 H Est GFR ( Amer) > 60 Urine Color STRAW Urine Appearance CLEAR Urine pH 6.0 Ur Specific [place] 1.004 Urine Protein NEGATIVE Urine Glucose (UA) NEGATIVE Urine Ketones NEGATIVE Urine Blood SMALL H Urine Nitrite NEGATIVE Ur Leukocyte Esterase NEGATIVE Urine WBC (Auto) 2 Urine RBC (Auto) 2 02/20/19 20:50 Blood Blood Culture (PCR) - Final Staphylococcus Species 02/20/19 20:50 Blood Blood Culture - Final Micrococcus Species Bacteroides Fragilis Impressions: Foot X-Ray 02/20/19 21:09 IMPRESSION: 1. Focal soft tissue air posterior to the calcaneus, new since 12/30/2018, likely an ulcerated wound. 2. No radiographic evidence for osteomyelitis. Assessment & Plan - Diagnosis (1) Cellulitis of right heel Is this a current diagnosis for this admission?: Yes (2) Diabetes mellitus type 2 in nonobese Is this a current diagnosis for this admission?: Yes - Time Time Spent with patient: 15-24 minutes - Inpatient Certification Medical Necessity: Need for IV Antibiotics - Plan Summary Plan Summary: Since the source of the infection has been removed, patient do not need any prolonged antibiotic therapy. Continue with dressing changes every 2 to 3days. Patient can be discharged to rehab or residential facility. Does arrange follow-up with surgical clinic in about 3 weeks for removal of the pascual. We will sign off. Call for any questions.
--- NOTE | 2019-02-24 17:21 | PDOC PROGRESS REPORT ---
Subjective Progress Note for:: 02/24/19 Subjective:: Patient has been calm today no complaints of agitation from staff. Reason For Visit: SIRS,CELLULITIS OF THE RIGHT HEEL,DM TYPE II,HYPER Physical Exam Vital Signs: Temp Pulse Resp BP Pulse Ox 97.6 F 48 L 18 119/56 L 100 02/24/19 08:21 02/24/19 08:21 02/24/19 08:21 02/24/19 08:21 02/24/19 08:21 Intake & Output 02/23/19 02/24/19 02/25/19 06:59 06:59 06:59 Intake Total 3800 870 100 Output Total 2035 2600 Balance 1765 -1730 100 Weight 71.1 kg 68.8 kg General appearance: PRESENT: no acute distress, cooperative, mild distress Head exam: PRESENT: atraumatic Eye exam: PRESENT: conjunctiva pink Mouth exam: PRESENT: moist Neck exam: ABSENT: JVD Respiratory exam: PRESENT: clear to auscultation cheryle. ABSENT: accessory muscle use Cardiovascular exam: PRESENT: RRR, +S1. ABSENT: bradycardia Vascular exam: ABSENT: pallor GI/Abdominal exam: PRESENT: normal bowel sounds. ABSENT: ascites Rectal exam: PRESENT: deferred Extremities exam: PRESENT: other - Right Knee stump post bka in clean dressing. ABSENT: calf tenderness Musculoskeletal exam: ABSENT: ambulatory Neurological exam: PRESENT: awake. ABSENT: oriented to place Psychiatric exam: ABSENT: agitated Results Laboratory Results: 02/23/19 05:20 02/24/19 08:01 02/24/19 02/24/19 07:05 08:01 Creatinine 1.29 H Est GFR ( Amer) > 60 Urine Color STRAW Urine Appearance CLEAR Urine pH 6.0 Ur Specific [place] 1.004 Urine Protein NEGATIVE Urine Glucose (UA) NEGATIVE Urine Ketones NEGATIVE Urine Blood SMALL H Urine Nitrite NEGATIVE Ur Leukocyte Esterase NEGATIVE Urine WBC (Auto) 2 Urine RBC (Auto) 2 02/20/19 20:50 Blood Blood Culture (PCR) - Final Staphylococcus Species 02/20/19 20:50 Blood Blood Culture - Final Micrococcus Species Bacteroides Fragilis Impressions: Foot X-Ray 02/20/19 21:09 IMPRESSION: 1. Focal soft tissue air posterior to the calcaneus, new since 12/30/2018, likely an ulcerated wound. 2. No radiographic evidence for osteomyelitis. Assessment and Plan - Diagnosis (1) Bacteremia Is this a current diagnosis for this admission?: Yes Plan: Bacteremia is polymicrobial secondary to foot infection. Blood cultures positive for methicillin sensitive's staph aureus, Bacteroides, and micrococcus species. Currently on day 5 of vancomycin and Zosyn. Source controlled with right BKA. Vancomycin discontinued today. Bacteroides sensitive to Zosyn. Will repeat blood cultures. (2) Diabetic foot infection Is this a current diagnosis for this admission?: Yes Plan: Day 2 status post right BKA. Continue wound care and physical therapy. C/w Abx. Will consider switch to PO tomorrow Patient will need to be transferred to rehab once surgery signed off. (3) Diabetes mellitus type 2 in nonobese Is this a current diagnosis for this admission?: Yes Plan: Controlled. Hemoglobin A1c 6.6. Not on home oral hypoglycemic. Continue basal, prandial and sliding scale insulin. Accu-Chek, hypoglycemic p rotocol, adjust meds as needed. Outpatient PCP follow-up. (4) Hypothyroidism Qualifiers: Hypothyroidism type: unspecified Qualified Code(s): E03.9 - Hypothyroidism, unspecified Is this a current diagnosis for this admission?: Yes Plan: TSH 0.02. T4 2.87. T3 2.15. Mildly depressed TSH. History of hypothyroidism on levothyroxine however family could not provide me with the dosage so started on levothyroxine 50 MCG and follow-up with PCP for reevaluation of thyroid function test in 6 weeks. (5) Agitation Is this a current diagnosis for this admission?: Yes Plan: Likely due to underlying worsening dementia. Will maintain on 50 mg of Seroquel nightly with given good result. Outpatient PCP follow-up. (6) Hypertension Qualifiers: Hypertension type: essential hypertension Qualified Code(s): I10 - Essential (primary) hypertension Is this a current diagnosis for this admission?: Yes Plan: Euvolemic. Normotensive. C/w diltiazem. Continue Idmur Started on low dose lisinopril. Monitor vitals adjust meds as needed. (7) History of atrial fibrillation Is this a current diagnosis for this admission?: Yes Plan: Rate controlled. C/w diltiazem and Eliquis - Time Time Spent with patient: 25-34 minutes
[2019-02-24] MEDS: APIXABAN 5 MG TABLET PO SCH (17:42)
[2019-02-24] MEDS: QUETIAPINE FUMARATE 25 MG TABLET PO SCH (21:24)
[2019-02-25] MEDS: PIPERACILLIN SODIUM/TAZOBACTAM 3.375 GM in NORMAL SALINE 100 ML IV SCH ×2 (02:38→08:13)
[2019-02-25] MEDS: NALBUPHINE HCL INJ 10 MG/1 ML AMPULE IV PRN ×2 (02:39→12:28)
[2019-02-25 04:27] LABS: ABSOLUTE EOSINOPHILS # (AUTO) 0.3 10^3/uL (0.0-0.6); ABSOLUTE LYMPHOCYTES (AUTO) 1.1 10^3/uL (0.5-4.7); ABSOLUTE MONOCYTES (AUTO) 0.5 10^3/uL (0.1-1.4); ABSOLUTE NEUT (AUTO) 3.4 10^3/uL (1.7-8.2); BASOPHILS % (AUTO) 0.7 % (0-2); EOSINOPHILS % (AUTO) 5.6 % (0-6); HEMATOCRIT 25.8 % (37.9-51.0); HEMOGLOBIN 8.5 g/dL (13.5-17.0); LYMPHOCYTES % (AUTO) 21.2 % (13-45); MEAN CORPUSCULAR HEMOGLOBIN 29.9 pg (27.0-33.4); MEAN CORPUSCULAR HGB CONC 33.1 g/dL (32.0-36.0); MEAN CORPUSCULAR VOLUME 90 fl (80-97); MONOCYTES % (AUTO) 8.5 % (3-13); PLATELET COUNT 165 10^3/uL (150-450); RED BLOOD COUNT 2.85 10^6/uL (4.35-5.55); RED CELL DISTRIBUTION WIDTH 13.4 % (11.5-14.0); TOTAL CELLS COUNTED % (AUTO) 100 %; WHITE BLOOD COUNT 5.3 10^3/uL (4.0-10.5)
[2019-02-25 04:46] LABS: ANION GAP 7 (5-19); BLOOD UREA NITROGEN 12 mg/dL (7-20); CALCIUM 7.7 mg/dL (8.4-10.2); CARBON DIOXIDE 27 mmol/L (22-30); CHLORIDE 104 mmol/L (98-107); GLUCOSE 184 mg/dL (75-110); POTASSIUM 3.4 mmol/L (3.6-5.0)
[2019-02-25] MEDS: PANTOPRAZOLE SODIUM 40 MG TABLET.DR PO SCH (05:51)
[2019-02-25] MEDS: LEVOTHYROXINE SODIUM 0.05 MG TABLET PO SCH (05:51)
[2019-02-25] MEDS: ACETAMINOPHEN 325 MG TABLET PO PRN (08:23)
[2019-02-25] MEDS: ISOSORBIDE MONONITRATE 30 MG TAB.ER.24H PO SCH (09:14)
[2019-02-25] MEDS: DOCUSATE SODIUM 100 MG CAPSULE PO SCH (09:14)
[2019-02-25] MEDS: APIXABAN 5 MG TABLET PO SCH ×2 (09:14→18:13)
[2019-02-25] MEDS: LISINOPRIL 5 MG TABLET PO SCH (09:14)
[2019-02-25] MEDS: INSULIN REG, HUMAN 100 UNIT/ML 3 ML VIAL (PYX) SUBCUT SCH ×4 (09:15→23:49)
[2019-02-25] MEDS: POLYETHYLENE GLYCOL 3350 POWDER 17 GM/1 PACKET PO SCH (09:15)
--- NOTE | 2019-02-25 11:19 | PDOC PROGRESS REPORT ---
Subjective Progress Note for:: 02/25/19 Subjective:: No issues today. Patient still appears to be somewhat delirious. Patient does not too much communication most discussion had with daughter was at bedside. She states the patient has been talking more but still occasionally confused and occasionally oriented but sometimes also disoriented. Reason For Visit: SIRS,CELLULITIS OF THE RIGHT HEEL,DM TYPE II,HYPER Physical Exam Vital Signs: Temp Pulse Resp BP Pulse Ox 97.5 F 86 17 117/53 L 99 02/25/19 08:14 02/25/19 08:14 02/25/19 08:14 02/25/19 08:14 02/25/19 08:14 Intake & Output 02/24/19 02/25/19 02/26/19 06:59 06:59 06:59 Intake Total 870 1494 Output Total 2600 1270 Balance -1730 224 Weight 68.8 kg 70 kg General appearance: PRESENT: no acute distress Head exam: PRESENT: atraumatic Eye exam: PRESENT: conjunctiva pink Mouth exam: ABSENT: laceration Neck exam: ABSENT: JVD Respiratory exam: PRESENT: clear to auscultation cheryle. ABSENT: accessory muscle use Cardiovascular exam: PRESENT: irregular rhythm Vascular exam: ABSENT: pallor GI/Abdominal exam: PRESENT: normal bowel sounds, soft. ABSENT: tenderness Rectal exam: PRESENT: deferred Neurological exam: PRESENT: awake. ABSENT: oriented to place, oriented to time, oriented to situation Psychiatric exam: ABSENT: agitated Results Laboratory Results: 02/25/19 04:15 02/25/19 04:15 02/25/19 02/25/19 04:15 04:15 WBC 5.3 RBC 2.85 L Hgb 8.5 L Hct 25.8 L MCV 90 MCH 29.9 MCHC 33.1 RDW 13.4 Plt Count 165 Seg Neutrophils % 64.0 Sodium 138.2 Potassium 3.4 L Chloride 104 Carbon Dioxide 27 Anion Gap 7 BUN 12 Creatinine 1.24 Est GFR ( Amer) > 60 Glucose 184 H Calcium 7.7 L 02/20/19 20:50 Blood Blood Culture (PCR) - Final Staphylococcus Species 02/20/19 20:50 Blood Blood Culture - Final Micrococcus Species Bacteroides Fragilis Impressions: Foot X-Ray 02/20/19 21:09 IMPRESSION: 1. Focal soft tissue air posterior to the calcaneus, new since 12/30/2018, likely an ulcerated wound. 2. No radiographic evidence for osteomyelitis. Assessment and Plan - Diagnosis (1) Bacteremia Is this a current diagnosis for this admission?: Yes Plan: Bacteremia is polymicrobial secondary to foot infection. Blood cultures positive for methicillin sensitive's staph aureus, Bacteroides, and micrococcus species. Had 5 days of vancomycin and Zosyn which have been discontinued. Will continue on Augmentin for 7 more days for treatment of bacteremia. Source controlled with right BKA. Blood cultures repeated. Will ensure negative blood cultures for at least 48 hours before discharge. (2) Diabetic foot infection Is this a current diagnosis for this admission?: Yes Plan: Day 3 status post right BKA. Continue wound care and physical therapy. Abx switched to PO today Follow-up in clinic with Dr. Esparza for wound evaluation and staple removal in 2 weeks. (3) Diabetes mellitus type 2 in nonobese Is this a current diagnosis for this admission?: Yes Plan: Controlled. Hemoglobin A1c 6.6. Not on home oral hypoglycemic. Continue basal, prandial and sliding scale insulin. Accu-Chek, hypoglycemic protocol, adjust meds as needed. Outpatient PCP follow-up. (4) Hypothyroidism Qualifiers: Hypothyroidism type: unspecified Qualified Code(s): E03.9 - Hypothyroidism, unspecified Is this a current diagnosis for this admission?: Yes Plan: TSH 0.02. T4 2.87. T3 2.15. Mildly depressed TSH. History of hypothyroidism on levothyroxine however family could not provide me with the dosage so started on levothyroxine 50 MCG and follow-up with PCP for reevaluation of thyroid function test in 6 weeks. (5) Agitation Is this a current diagnosis for this admission?: Yes Plan: Likely due to underlying worsening dementia. Will maintain on 50 mg of Seroquel nightly with given good result. Outpatient PCP follow-up. (6) Hypertension Qualifiers: Hypertension type: essential hypertension Qualified Code(s): I10 - Essential (primary) hypertension Is this a current diagnosis for this admission?: Yes Plan: Euvolemic. Normotensive. C/w diltiazem. Continue Idmur Started on low dose lisinopril. Monitor vitals adjust meds as needed. (7) History of atrial fibrillation Is this a current diagnosis for this admission?: Yes Plan: Rate controlled. C/w diltiazem and Eliquis - Time Time Spent with patient: 15-24 minutes
[2019-02-25] MEDS: AMOXICILLIN TR/POT CLAVULANATE 500-125 MG TAB PO SCH ×2 (14:18→23:49)
[2019-02-25] MEDS ORDERED: POTASSIUM CHLORIDE 10 MEQ CAPSULE.ER PO ONE (17:00)
[2019-02-25] MEDS: DILTIAZEM HCL 120 MG CAP.SR.24H PO SCH (23:48)
[2019-02-25] MEDS: QUETIAPINE FUMARATE 25 MG TABLET PO SCH (23:49)
[2019-02-26] MEDS: PANTOPRAZOLE SODIUM 40 MG TABLET.DR PO SCH (05:42)
[2019-02-26] MEDS: AMOXICILLIN TR/POT CLAVULANATE 500-125 MG TAB PO SCH ×3 (05:42→21:35)
[2019-02-26] MEDS: LEVOTHYROXINE SODIUM 0.05 MG TABLET PO SCH (05:42)
[2019-02-26 06:52] LABS: HEMATOCRIT 27.5 % (37.9-51.0); HEMOGLOBIN 9.1 g/dL (13.5-17.0); MEAN CORPUSCULAR HEMOGLOBIN 29.8 pg (27.0-33.4); MEAN CORPUSCULAR VOLUME 90 fl (80-97); PLATELET COUNT 205 10^3/uL (150-450); RED BLOOD COUNT 3.05 10^6/uL (4.35-5.55); RED CELL DISTRIBUTION WIDTH 13.8 % (11.5-14.0); WHITE BLOOD COUNT 5.4 10^3/uL (4.0-10.5)
[2019-02-26 07:11] LABS: ANION GAP 6 (5-19); BLOOD UREA NITROGEN 10 mg/dL (7-20); CALCIUM 7.8 mg/dL (8.4-10.2); CARBON DIOXIDE 29 mmol/L (22-30); CHLORIDE 104 mmol/L (98-107); GLUCOSE 127 mg/dL (75-110); POTASSIUM 3.9 mmol/L (3.6-5.0)
[2019-02-26] MEDS ORDERED: NORMAL SALINE 1000 ML 1,000 ML IV ONE (08:23)
[2019-02-26] MEDS: APIXABAN 5 MG TABLET PO SCH ×2 (09:48→18:10)
[2019-02-26] MEDS: ISOSORBIDE MONONITRATE 30 MG TAB.ER.24H PO SCH (09:48)
[2019-02-26] MEDS: INSULIN REG, HUMAN 100 UNIT/ML 3 ML VIAL (PYX) SUBCUT SCH ×4 (09:48→21:34)
[2019-02-26] MEDS: POLYETHYLENE GLYCOL 3350 POWDER 17 GM/1 PACKET PO SCH (09:48)
[2019-02-26] MEDS: DOCUSATE SODIUM 100 MG CAPSULE PO SCH (09:48)
[2019-02-26] MEDS: LISINOPRIL 5 MG TABLET PO SCH (10:20)
--- NOTE | 2019-02-26 14:10 | PDOC PROGRESS REPORT ---
Subjective Progress Note for:: 02/26/19 Subjective:: No issues today. Patient appears more alert today talking more. Daughter still states patient has been talking more but still occasionally confused and occasionally oriented but sometimes also disoriented but a lot closer to baseline. Reason For Visit: SIRS,CELLULITIS OF THE RIGHT HEEL,DM TYPE II,HYPER Physical Exam Vital Signs: Temp Pulse Resp BP Pulse Ox 97.5 F 90 17 103/57 L 97 02/26/19 11:13 02/26/19 11:13 02/25/19 23:58 02/26/19 11:13 02/26/19 11:13 Intake & Output 02/25/19 02/26/19 02/27/19 06:59 06:59 06:59 Intake Total 4445 097 0144 Output Total 1270 300 Balance 511 46 9125 Weight 70 kg 69.4 kg General appearance: PRESENT: no acute distress, cooperative Head exam: PRESENT: atraumatic Eye exam: PRESENT: EOMI Neck exam: ABSENT: JVD, tracheal deviation Respiratory exam: PRESENT: clear to auscultation cheryle, unlabored Cardiovascular exam: PRESENT: +S1. ABSENT: diastolic murmur, tachycardia Vascular exam: ABSENT: pallor GI/Abdominal exam: PRESENT: normal bowel sounds, soft. ABSENT: rebound, rigid, tenderness Rectal exam: PRESENT: deferred Gentrourinary exam: ABSENT: ecchymosis Extremities exam: PRESENT: other - Lower extremity BKA Neurological exam: PRESENT: alert, awake Psychiatric exam: ABSENT: agitated Focused psych exam: ABSENT: catatonic Skin exam: PRESENT: dry. ABSENT: erythema Results Laboratory Results: 02/26/19 06:34 02/26/19 06:34 02/26/19 02/26/19 06:34 06:34 WBC 5.4 RBC 3.05 L Hgb 9.1 L Hct 27.5 L MCV 90 MCH 29.8 MCHC 33.0 RDW 13.8 Plt Count 205 Sodium 139.3 Potassium 3.9 Chloride 104 Carbon Dioxide 29 Anion Gap 6 BUN 10 Creatinine 1.31 H Est GFR ( Amer) > 60 Glucose 127 H Calcium 7.8 L 02/20/19 21:45 Blood Blood Culture - Final NO GROWTH IN 5 DAYS Impressions: Foot X-Ray 02/20/19 21:09 IMPRESSION: 1. Focal soft tissue air posterior to the calcaneus, new since 12/30/2018, likely an ulcerated wound. 2. No radiographic evidence for osteomyelitis. Assessment and Plan - Diagnosis (1) Bacteremia Is this a current diagnosis for this admission?: Yes Plan: Bacteremia is polymicrobial secondary to foot infection. Blood cultures positive for methicillin sensitive's staph aureus, Bacteroides, and micrococcus species. Had 5 days of vancomycin and Zosyn which have been discontinued. Will continue on Augmentin for 7 more days for treatment of bacteremia. Source controlled with right BKA. Blood cultures repeated negative in just over 24 hours. Will ensure negative blood cultures for at least 48 hours before discharge. (2) Diabetic foot infection Is this a current diagnosis for this admission?: Yes Plan: Day 4 status post right BKA. Continue wound care and physical therapy. Follow-up in clinic with Dr. Esparza for wound evaluation and staple removal in 2 weeks. (3) Diabetes mellitus type 2 in nonobese Is this a current diagnosis for this admission?: Yes Plan: Controlled. Hemoglobin A1c 6.6. Not on home oral hypoglycemic. Continue basal, prandial and sliding scale insulin. Accu-Chek, hypoglycemic protocol, adjust meds as needed. Outpatient PCP follow-up. (4) Hypothyroidism Qualifiers: Hypothyroidism type: unspecified Qualified Code(s): E03.9 - Hypothyroidism, unspecified Is this a current diagnosis for this admission?: Yes Plan: TSH 0.02. T4 2.87. T3 2.15. Mildly depressed TSH. History of hypothyroidism on levothyroxine however family could not provide me with the dosage so started on levothyroxine 50 MCG and follow-up with PCP for reevaluation of thyroid function test in 6 weeks. (5) Agitation Is this a current diagnosis for this admission?: Yes Plan: Likely due to underlying dementia. Will maintain on 50 mg of Seroquel nightly with given good result. Outpatient PCP follow-up. (6) Hypertension Qualifiers: Hypertension type: essential hypertension Qualified Code(s): I10 - Essential (primary) hypertension Is this a current diagnosis for this admission?: Yes Plan: C/w diltiazem. Continue Idmur Started on low dose lisinopril. (7) History of atrial fibrillation Is this a current diagnosis for this admission?: Yes Plan: Rate controlled. C/w diltiazem and Eliquis - Time Time Spent with patient: 15-24 minutes Within: within 24 hours
[2019-02-26] MEDS: DILTIAZEM HCL 120 MG CAP.SR.24H PO SCH (21:36)
[2019-02-26] MEDS: QUETIAPINE FUMARATE 25 MG TABLET PO SCH (21:37)
[2019-02-27] MEDS: LEVOTHYROXINE SODIUM 0.05 MG TABLET PO SCH (05:27)
[2019-02-27] MEDS: AMOXICILLIN TR/POT CLAVULANATE 500-125 MG TAB PO SCH ×3 (05:27→22:15)
[2019-02-27] MEDS: PANTOPRAZOLE SODIUM 40 MG TABLET.DR PO SCH (05:28)
[2019-02-27 06:34] LABS: BLOOD UREA NITROGEN 8 mg/dL (7-20); CALCIUM 7.5 mg/dL (8.4-10.2); CARBON DIOXIDE 29 mmol/L (22-30); GLUCOSE 146 mg/dL (75-110)
[2019-02-27 06:40] LABS: CHLORIDE 105 mmol/L (98-107)
[2019-02-27 06:41] LABS: ANION GAP 3 (5-19)
[2019-02-27] MEDS: NALBUPHINE HCL INJ 10 MG/1 ML AMPULE IV PRN (08:27)
[2019-02-27] MEDS: INSULIN REG, HUMAN 100 UNIT/ML 3 ML VIAL (PYX) SUBCUT SCH ×4 (09:05→22:16)
[2019-02-27] MEDS: APIXABAN 5 MG TABLET PO SCH ×2 (11:11→17:28)
[2019-02-27] MEDS: ISOSORBIDE MONONITRATE 30 MG TAB.ER.24H PO SCH (11:11)
[2019-02-27] MEDS: POLYETHYLENE GLYCOL 3350 POWDER 17 GM/1 PACKET PO SCH (11:11)
[2019-02-27] MEDS: DOCUSATE SODIUM 100 MG CAPSULE PO SCH (11:11)
[2019-02-27] MEDS: LISINOPRIL 5 MG TABLET PO SCH (11:12)
--- NOTE | 2019-02-27 12:00 | PDOC TRANSFER SUMMARY ---
Impression - Admit/DC Date/PCP Admission Date/Primary Care Provider: 02/20/19 22:28 [facility] Discharge Date: 02/27/19 - Discharge Diagnosis (1) Bacteremia Is this a current diagnosis for this admission?: Yes (2) Diabetic foot infection Is this a current diagnosis for this admission?: Yes (3) Diabetes mellitus type 2 in nonobese Is this a current diagnosis for this admission?: Yes (4) Hypothyroidism Is this a current diagnosis for this admission?: Yes (5) Agitation Is this a current diagnosis for this admission?: Yes (6) Hypertension Is this a current diagnosis for this admission?: Yes (7) History of atrial fibrillation Is this a current diagnosis for this admission?: Yes (8) Cellulitis of right heel Is this a current diagnosis for this admission?: Yes (9) Coronary artery disease Is this a current diagnosis for this admission?: Yes (10) Presbycusis of both ears Is this a current diagnosis for this admission?: Yes (11) SIRS (systemic inflammatory response syndrome) Is this a current diagnosis for this admission?: Yes - Assessment Summary: 89-year-old male with a history of diabetes mellitus and atrial fibrillation presents to the hospital with complains of fever of 101.2 Fahrenheit. He was also noted to be lethargic. Patient met sepsis criteria. The wound on his right heel was noted to be purulent and foul-smelling. Patient was evaluated by surgery who took patient to the OR to perform a below-knee amputation given osteomyelitis. Patient was subsequently started on antibiotics. Blood culture was positive for MSSA, Bacteroides and micrococcus species. Patient was given vancomycin for 5 days and also received Zosyn for 5 days as well. Patient was later escalated to Augmentin which she is to continue for 6 more days for treatment of his bacteremia. Repeat blood cultures have been negative for over 48 hours. Patient's vital signs have been normal. Source control has been performed with BKA. Also during patient's hospitalization TSH was fairly depressed at 0.02. Family did not know the dose of patient's levothyroxine know where he collected from. Patient was placed on levothyroxine of 0.05 with plans to repeat TSH level in 5 weeks from now. She was also placed on Seroquel for moments of agitation with from delirium. Agitation has long resolved and patient has been calm for the past several days. - Additional Information Resuscitation Status: Full Code Discharge Diet: Diabetic Discharge Activity: Other - None weight bearing on amputated leg Referrals: [facility] [Outside] [facility] [Provider Group] (POST below-knee amputation on 02/22/2019. F/U IN 1 WK for wound reevaluation) Prescriptions: Insulin Regular, Human [Humulin R (Reg) Insulin 100 unit/mL] 3 unit SUBCUT AC #10 ml Oxycodone HCl/Acetaminophen [Percocet 5-325 mg Tablet] 1 - 2 tab PO ASDIR PRN #10 tablet PRN Reason: Home Medications: Atorvastatin Calcium [Lipitor 40 mg Tablet] 20 mg PO QHS 02/25/19 Cyanocobalamin (Vitamin B-12) [Vitamin B-12 1000 mcg Tablet] 1,000 mcg PO DAILY 02/25/19 Isosorbide Mononitrate [Imdur 30 mg Tablet.er] 30 mg PO DAILY 02/25/19 Petrolatum,White/Lanolin [Vitamin A and D Ointment] 1 applic TOP BID 02/25/19 Ranitidine HCl [Zantac] 150 mg PO QHS 02/25/19 Urea 1 applic TOP BID 02/25/19 Acetaminophen [Tylenol 325 mg Tablet] 650 mg PO Q4HP PRN tablet 02/27/19 Amox Tr/Potassium Clavulanate [Augmentin "500" Tablet] 1 tab PO Q8 6 Days tablet 02/27/19 Apixaban [Eliquis 5 mg Tablet] 5 mg PO BID tablet 02/27/19 Diltiazem HCl [Cardizem Cd 120 mg Capsule] 120 mg PO QHS cap.sr.24h 02/27/19 Docusate Sodium [Colace 100 mg Capsule] 100 mg PO DAILY capsule 02/27/19 Insulin Regular, Human [Humulin R (Reg) Insulin 100 unit/mL] 3 unit SUBCUT AC #10 ml 02/27/19 Levothyroxine Sodium [Synthroid 0.05 mg Tablet] 0.05 mg PO Q6AM tablet 02/27/19 Lisinopril [Prinivil 5 mg Tablet] 2.5 mg PO DAILY tablet 02/27/19 Mag Hydrox/Al Hydrox/Simeth [Maalox Plus Susp 30 Udcup] 30 ml PO Q6HP PRN udc 02/27/19 Oxycodone HCl/Acetaminophen [Percocet 5-325 mg Tablet] 1 - 2 tab PO ASDIR PRN #10 tablet 02/27/19 Polyethylene Glycol 3350 [Miralax Powder 17 gm/Packet] 17 gm PO DAILY powd.pack 02/27/19 Quetiapine Fumarate [Seroquel 25 mg Tablet] 50 mg PO QHS tablet 02/27/19 History of Present Illiness History of Present Illness: CAMILLE RAMIREZ is an 89 year old male who presented to the emergency room with an acute fever. The patient is poorly communicative due to severe presbycusis and acute altered mental status with lethargy due to his fever. His son presented with the patient and provided his historical input. The patient developed a fever up to 101.2 F earlier in the day and has been lethargic but has not complained of pain. His son has noticed that his right heel has become more swollen and red over the last few days. In the emergency room the patient was found to have an erythematous edematous right heel with an ulcerated area covered by an eschar draining purulent exudate. The wound was cultured and blood cultures were obtained prior to starting antibiotics in the emergency room. Patient was noted to have a lactic acid of 2.3 and a mildly elevated white blood count 11,200. He was subsequently admitted to the hospital for further evaluation and treatment. Physical Exam Vital Signs: Temp Pulse Resp BP Pulse Ox 97.9 F 73 15 118/53 L 97 02/27/19 08:00 02/27/19 08:00 02/27/19 08:00 02/27/19 08:00 02/27/19 08:00 Intake & Output 02/26/19 02/27/19 02/28/19 06:59 06:59 06:59 Intake Total 360 1237 Output Total 300 1500 Balance 60 -263 Weight 69.4 kg 70.1 kg General appearance: PRESENT: no acute distress, cooperative, hard of hearing Head exam: PRESENT: normocephalic Eye exam: PRESENT: EOMI Ear exam: ABSENT: drainage Mouth exam: PRESENT: moist Throat exam: ABSENT: tonsillogmegaly Neck exam: ABSENT: JVD, tracheal deviation Respiratory exam: PRESENT: clear to auscultation cheryle. ABSENT: wheezes Cardiovascular exam: PRESENT: irregular rhythm, +S1 Vascular exam: PRESENT: normal capillary refill GI/Abdominal exam: PRESENT: normal bowel sounds, soft. ABSENT: tenderness Rectal exam: PRESENT: deferred Extremities exam: PRESENT: other - Right extremity lower extremity BKA site and clean dressing without any purulent drainage. Musculoskeletal exam: ABSENT: ambulatory Neurological exam: PRESENT: alert, awake, oriented to person, oriented to place, other - Occasionally gets delirious but not currently. ABSENT: oriented to time Psychiatric exam: ABSENT: agitated Results Laboratory Results: WBC 5.4 10^3/uL (4.0-10.5) 02/26/19 06:34 RBC 3.05 10^6/uL (4.35-5.55) L 02/26/19 06:34 Hgb 9.1 g/dL (13.5-17.0) L 02/26/19 06:34 Hct 27.5 % (37.9-51.0) L 02/26/19 06:34 MCV 90 fl (80-97) 02/26/19 06:34 MCH 29.8 pg (27.0-33.4) 02/26/19 06:34 MCHC 33.0 g/dL (32.0-36.0) 02/26/19 06:34 RDW 13.8 % (11.5-14.0) 02/26/19 06:34 Plt Count 205 10^3/uL (150-450) 02/26/19 06:34 Lymph % (Auto) 21.2 % (13-45) 02/25/19 04:15 [place] % (Auto) 8.5 % (3-13) 02/25/19 04:15 Eos % (Auto) 5.6 % (0-6) 02/25/19 04:15 Baso % (Auto) 0.7 % (0-2) 02/25/19 04:15 Absolute Neuts (auto) 3.4 10^3/uL (1.7-8.2) 02/25/19 04:15 Absolute Lymphs (auto) 1.1 10^3/uL (0.5-4.7) 02/25/19 04:15 Absolute Monos (auto) 0.5 10^3/uL (0.1-1.4) 02/25/19 04:15 Absolute Eos (auto) 0.3 10^3/uL (0.0-0.6) 02/25/19 04:15 Absolute Basos (auto) 0.0 10^3/uL (0.0-0.2) 02/25/19 04:15 Total Counted 100 02/20/19 19:55 Seg Neutrophils % 64.0 % (42-78) 02/25/19 04:15 Seg Neuts % (Manual) 92 % (42-78) H 02/20/19 19:55 Band Neutrophils % 2 % (3-5) L 02/20/19 19:55 Lymphocytes % (Manual) 1 % (13-45) L 02/20/19 19:55 Monocytes % (Manual) 4 % (3-13) 02/20/19 19:55 Eosinophils % (Manual) 0 % (0-6) 02/20/19 19:55 Basophils % (Manual) 1 % (0-2) 02/20/19 19:55 Abs Neuts (Manual) 10.5 10^3/uL (1.7-8.2) H 02/20/19 19:55 Abs Lymphs (Manual) 0.1 10^3/uL (0.5-4.7) L 02/20/19 19:55 Abs Monocytes (Manual) 0.4 10^3/uL (0.1-1.4) 02/20/19 19:55 Absolute Eos (Manual) 0.0 10^3/uL (0.0-0.6) 02/20/19 19:55 Abs Basophils (Manual) 0.1 10^3/uL (0.0-0.2) 02/20/19 19:55 Platelet Comment DECREASED 02/20/19 19:55 Hypochromasia SLIGHT 02/20/19 19:55 PT 18.9 SEC (11.4-15.4) H 02/20/19 19:55 INR 1.57 02/20/19 19:55 VBG pH 7.40 (7.30-7.42) 02/20/19 20:50 VBG pCO2 41.8 mmHg (35-63) 02/20/19 20:50 VBG HCO3 25.4 mmol/L (20-32) 02/20/19 20:50 VBG Base Excess 0.5 mmol/L 02/20/19 20:50 Sodium 137.2 mmol/L (137-145) 02/27/19 05:57 Potassium 4.0 mmol/L (3.6-5.0) 02/27/19 05:57 Chloride 105 mmol/L (98-107) 02/27/19 05:57 Carbon Dioxide 29 mmol/L (22-30) 02/27/19 05:57 Anion Gap 3 (5-19) L 02/27/19 05:57 BUN 8 mg/dL (7-20) 02/27/19 05:57 Creatinine 1.03 mg/dL (0.52-1.25) 02/27/19 05:57 Est GFR ( Amer) > 60 (>60) 02/27/19 05:57 Est GFR (MDRD) Non-Af > 60 (>60) 02/27/19 05:57 Glucose 146 mg/dL (75-110) H 02/27/19 05:57 POC Glucose 146 mg/dL (70-110) H 02/27/19 08:14 Hemoglobin A1c % 6.6 % (4.7-6.0) H 02/21/19 04:29 Lactic Acid 1.5 mmol/L (0.7-2.1) 02/21/19 08:14 Calcium 7.5 mg/dL (8.4-10.2) L 02/27/19 05:57 Magnesium 1.5 mg/dL (1.6-2.3) L 02/23/19 05:20 Total Bilirubin 0.5 mg/dL (0.2-1.3) 02/22/19 05:35 Direct Bilirubin 0.2 mg/dL (0.0-0.4) 02/22/19 05:35 Neonat Total Bilirubin Not Reportable 02/22/19 05:35 Neonat Direct Bilirubin Not Reportable 02/22/19 05:35 Neonat Indirect Bili Not Reportable 02/22/19 05:35 AST 15 U/L (17-59) L 02/22/19 05:35 ALT 5 U/L (<50) 02/22/19 05:35 Alkaline Phosphatase 72 U/L (38-126) 02/22/19 05:35 Total Protein 5.6 g/dL (6.3-8.2) L 02/22/19 05:35 Albumin 2.3 g/dL (3.5-5.0) L 02/22/19 05:35 Triglycerides 139 mg/dL (<150) 02/22/19 05:35 Cholesterol 153.65 mg/dL (0-200) 02/22/19 05:35 LDL Cholesterol Direct 100 mg/dL (<100) 02/22/19 05:35 VLDL Cholesterol 28.0 mg/dL (10-31) 02/22/19 05:35 HDL Cholesterol 21 mg/dL (>40) L 02/22/19 05:35 TSH 0.02 uIU/mL (0.47-4.68) L 02/20/19 19:55 Free T4 2.87 ng/dL (0.78-2.19) H 02/20/19 19:55 Free T3 pg/mL 2.15 pg/mL (2.77-5.27) L 02/20/19 19:55 Urine Color STRAW 02/24/19 07:05 Urine Appearance CLEAR 02/24/19 07:05 Urine pH 6.0 (5.0-9.0) 02/24/19 07:05 Ur Specific [place] 1.004 02/24/19 07:05 Urine Protein NEGATIVE mg/dL (NEGATIVE) 02/24/19 07:05 Urine Glucose (UA) NEGATIVE mg/dL (NEGATIVE) 02/24/19 07:05 Urine Ketones NEGATIVE mg/dL (NEGATIVE) 02/24/19 07:05 Urine Blood SMALL (NEGATIVE) H 02/24/19 07:05 Urine Nitrite NEGATIVE (NEGATIVE) 02/24/19 07:05 Urine Bilirubin NEGATIVE (NEGATIVE) 02/24/19 07:05 Urine Urobilinogen NEGATIVE mg/dL (<2.0) 02/24/19 07:05 Ur Leukocyte Esterase NEGATIVE (NEGATIVE) 02/24/19 07:05 Urine WBC (Auto) 2 /HPF 02/24/19 07:05 Urine RBC (Auto) 2 /HPF 02/24/19 07:05 Urine Bacteria (Auto) TRACE /HPF 02/24/19 07:05 Squamous Epi Cells Auto <1 /HPF 02/24/19 07:05 Urine Mucus (Auto) RARE /LPF 02/24/19 07:05 Urine Ascorbic Acid NEGATIVE (NEGATIVE) 02/24/19 07:05 Time Trough Drawn 203902/23/19 20:40 Vancomycin Trough 14.8 ug/mL (5.0-20.0) 02/23/19 20:40 Urine Opiates Screen NEGATIVE 02/24/19 07:05 Urine Methadone Screen NEGATIVE 02/24/19 07:05 Ur Barbiturates Screen NEGATIVE 02/24/19 07:05 Ur Phencyclidine Scrn NEGATIVE 02/24/19 07:05 Ur Amphetamines Screen NEGATIVE 02/24/19 07:05 U Benzodiazepines Scrn NEGATIVE 02/24/19 07:05 Urine Cocaine Screen NEGATIVE 02/24/19 07:05 U Marijuana (THC) Screen NEGATIVE 02/24/19 07:05 Serum Alcohol < 10 mg/dL (NONE DETECTED) 02/20/19 19:55 Impressions: Foot X-Ray 02/20/19 21:09 IMPRESSION: 1. Focal soft tissue air posterior to the calcaneus, new since 12/30/2018, likely an ulcerated wound. 2. No radiographic evidence for osteomyelitis. Plan Plan of Treatment: Continue Augmentin for treatment of bacteremia for 6 more days. Follow-up with [facility] for reevaluation of foot wound and surgical stump in 1 week. Please call to make appointment. Continue patient's Seroquel. Please note that patient sometimes gets delirious but has not been agitated for the past several days. Please repeat TSH and free T4 in 5 weeks and adjust's Synthroid as needed. Please note the patient has not required his home dose of insulin and has had only minimal insulin requirements since he has been in the hospital. May be secondary to recent infection. Uncertain what his blood sugar readings at home were but his A1c was 6.6. I have placed patient on Humulin 3 units before meals. Please monitor blood sugar and readjust if needed. Time Spent: Greater than 30 Minutes Stroke Is this a Stroke Patient?: No Acute Heart Failure - Is this a Heart Failure Patient?: No
[2019-02-27] MEDS: QUETIAPINE FUMARATE 25 MG TABLET PO SCH (22:15)
[2019-02-27] MEDS: DILTIAZEM HCL 120 MG CAP.SR.24H PO SCH (22:15)
[2019-02-28] MEDS: AMOXICILLIN TR/POT CLAVULANATE 500-125 MG TAB PO SCH ×2 (05:55→14:13)
[2019-02-28] MEDS: LEVOTHYROXINE SODIUM 0.05 MG TABLET PO SCH (05:55)
[2019-02-28] MEDS: PANTOPRAZOLE SODIUM 40 MG TABLET.DR PO SCH (05:55)
[2019-02-28] MEDS: INSULIN REG, HUMAN 100 UNIT/ML 3 ML VIAL (PYX) SUBCUT SCH ×3 (08:36→17:45)
[2019-02-28] MEDS: ISOSORBIDE MONONITRATE 30 MG TAB.ER.24H PO SCH (09:49)
[2019-02-28 09:50] VITALS: BP 135/59
[2019-02-28] MEDS: DOCUSATE SODIUM 100 MG CAPSULE PO SCH (09:50)
[2019-02-28] MEDS: POLYETHYLENE GLYCOL 3350 POWDER 17 GM/1 PACKET PO SCH (09:50)
[2019-02-28] MEDS: LISINOPRIL 5 MG TABLET PO SCH (09:50)
[2019-02-28] MEDS: APIXABAN 5 MG TABLET PO SCH ×2 (09:50→17:49)
--- NOTE | 2019-02-28 10:14 | Progress Note ---
Provider Note Provider Note: No changes to patient's plan. Patient still currently medically discharged. Awaiting final arrangements with senior living. Anticipate patient will be leaving today to the nursing facility. Plan discussed with patient, patient's daughter and her who at bedside.
== END 2019-02-28 19:30 | DRG 240 ==
LOC: ER 18:58 → EH 22:28 → 5 02-21 02:30
PROVIDERS: ADMIT Emergency Medicine; ATTEND Emergency Medicine
PROC: 0Y6H0Z1 Detachment at Right Lower Leg, High, Open Approach (ICD-10-PCS; principal; 2019-02-22 13:30)
DX: E11.51 Type 2 diabetes mellitus with diabetic peripheral angiopathy without gangrene (principal); L03.115 Cellulitis of right lower limb; R78.81 Bacteremia; M86.9 Osteomyelitis, unspecified; E11.69 Type 2 diabetes mellitus with other specified complication; I25.10 Atherosclerotic heart disease of native coronary artery without angina pectoris; E03.9 Hypothyroidism, unspecified; H91.13 Presbycusis, bilateral; I12.9 Hypertensive chronic kidney disease with stage 1 through stage 4 chronic kidney disease, or unspecified chronic kidney disease; E11.22 Type 2 diabetes mellitus with diabetic chronic kidney disease; N18.9 Chronic kidney disease, unspecified; I48.91 Unspecified atrial fibrillation; D63.1 Anemia in chronic kidney disease; I87.8 Other specified disorders of veins; B95.8 Unspecified staphylococcus as the cause of diseases classified elsewhere; R45.1 Restlessness and agitation; Z79.02 Long term (current) use of antithrombotics/antiplatelets; Z79.899 Other long term (current) drug therapy; Z86.14 Personal history of Methicillin resistant Staphylococcus aureus infection; Z89.431 Acquired absence of right foot; Z83.3 Family history of diabetes mellitus; Z82.49 Family history of ischemic heart disease and other diseases of the circulatory system
CPT/HCPCS: 01482; 36415; 80048; 80053; 80061; 80202; 80307; 81001; 82565; 82803; 82962; 83036; 83605; 83735; 84439; 84443; 84481; 85025; 85027; 85610; 87040; 87077; 87150; 87205; 88307; 88311; 90686; 93005; 93010; 99285; J1644; J1815; J2250; J2300; J2543; J2704; J3010; J3370; J3475; J3490; J7030; J7050; J7060; J7120

== ENCOUNTER 2019-03-04 12:58 | Inpatient (IN) | payer OTHER, MEDICARE ==
[2019-03-04 14:30] LABS: HEMATOCRIT 25.3 % (37.9-51.0); HEMOGLOBIN 8.2 g/dL (13.5-17.0); MEAN CORPUSCULAR HEMOGLOBIN 29.6 pg (27.0-33.4); MEAN CORPUSCULAR HGB CONC 32.4 g/dL (32.0-36.0); MEAN CORPUSCULAR VOLUME 91 fl (80-97); PLATELET COUNT 228 10^3/uL (150-450); PROTHROMBIN TIME 23.9 SEC (11.4-15.4); RED BLOOD COUNT 2.78 10^6/uL (4.35-5.55); RED CELL DISTRIBUTION WIDTH 14.8 % (11.5-14.0); WHITE BLOOD COUNT 26.8 10^3/uL (4.0-10.5)
[2019-03-04 14:31] LABS: PARTIAL THROMBOPLASTIN TIME 41.9 SEC (23.5-35.8)
[2019-03-04 14:40] LABS: ALBUMIN 2.5 g/dL (3.5-5.0); ALKALINE PHOSPHATASE 70 U/L (38-126); ANION GAP 8 (5-19); ASPARTATE AMINO TRANSFERASE 21 U/L (17-59); BILIRUBIN,DIRECT 0.3 mg/dL (0.0-0.4); BILIRUBIN,TOTAL 0.7 mg/dL (0.2-1.3); BLOOD UREA NITROGEN 27 mg/dL (7-20); CALCIUM 8.3 mg/dL (8.4-10.2); CARBON DIOXIDE 28 mmol/L (22-30); CHLORIDE 96 mmol/L (98-107); CREATINE KINASE 40 U/L (55-170); GLUCOSE 161 mg/dL (75-110); POTASSIUM 4.9 mmol/L (3.6-5.0); TOTAL PROTEIN 6.3 g/dL (6.3-8.2)
--- NOTE | 2019-03-04 14:48 | ER Document Report ---
ED General - General Chief Complaint: Medical Clearance Stated Complaint: POOR APPETITE Time Seen by Provider: 03/04/19 14:14 Primary Care Provider: CASEY TRINIDAD [Primary Care Provider] - Follow up as needed Notes: Provider D/C Summary: 89-year-old male with a history of diabetes mellitus and atrial fibrillation presents to the hospital with complains of fever of 101.2 Fahrenheit. He was also noted to be lethargic. Patient met sepsis criteria. The wound on his right heel was noted to be purulent and foul-smelling. Patient was evaluated by surgery who took patient to the OR to perform a below-knee amputation given osteomyelitis. Patient was subsequently started on antibiotics. Blood culture was positive for MSSA, Bacteroides and micrococcus species. Patient was given vancomycin for 5 days and also received Zosyn for 5 days as well. Patient was later escalated to Augmentin which she is to continue for 6 more days for treatment of his bacteremia. Repeat blood cultures have been negative for over 48 hours. Patient's vital signs have been normal. Source control has been performed with BKA. Also during patient's hospitalization TSH was fairly depressed at 0.02. Family did not know the dose of patient's levothyroxine know where he collected from. Patient was placed on levothyroxine of 0.05 with plans to repeat TSH level in 5 weeks from now. She was also placed on Seroquel for moments of agitation with from delirium. Agitation has long resolved and patient has been calm for the past several days. MY HPI: Patient is a 89-year-old male presents to the emergency department from a care home facility for decreased p.o. and "yellowing of skin." Family in room states patient recently underwent a right BTK amputation approximately 2 weeks ago. Was discharged to a care home facility on 02/28/2019. Family voices the patient will not eat or drink at skilled facility. States they wanted him reevaluated in the emergency department.putation Family in room states patient does have a history of dementia" sometimes will answer your questions, and sometimes will not." Patient is conscious alert and oriented x4 upon my questioning. Patient continues to try to put the sheets over his face and appears agitated. Daughter states "this is normal" states he is mad that so many people are asking him questions. TRAVEL OUTSIDE OF THE [place] IN LAST 30 DAYS: No - Related Data Allergies/Adverse Reactions: No Known Allergies Allergy (Verified 03/04/19 13:30) Past Medical History - General Information source: Patient, Relative - Social History Smoking Status: Unknown if Ever Smoked Family History: DM, Hypertension Patient has suicidal ideation: No Patient has homicidal ideation: No - Past Medical History Cardiac Medical History: Reports: Hx Coronary Artery Disease, Hx Hypertension, Hx Peripheral Vascular Disease Denies: Hx Atrial Fibrillation, Hx Congestive Heart Failure, Hx Heart Attack, Hx Hypercholesterolemia Pulmonary Medical History: Denies: Hx Asthma, Hx COPD Neurological Medical History: Denies: Hx Seizures Endocrine Medical History: Reports: Hx Diabetes Mellitus Type 2, Hx Hypothyroidism. Denies: Hx Diabetes Mellitus Type 1, Hx Hyperthyroidism Renal/ Medical History: Denies: Hx Peritoneal Dialysis GI Medical History: Denies: Hx Cirrhosis, Hx Gastroesophageal Reflux Disease, Hx Hepatitis Musculoskeletal Medical History: Denies Hx Arthritis, Denies Hx Gout Psychiatric Medical History: Denies: Hx Depression Infectious Medical History: Reports: Hx MRSA. Denies: Hx Hepatitis Past Surgical History: Reports: Hx Orthopedic Surgery - right forefoot amputation, Hx Vascular Surgery Review of Systems - Review of Systems Constitutional: denies: Fever EENT: No symptoms reported Cardiovascular: No symptoms reported Respiratory: No symptoms reported Gastrointestinal: No symptoms reported Genitourinary: See HPI Male Genitourinary: No symptoms reported Musculoskeletal: No symptoms reported Skin: See HPI Hematologic/Lymphatic: No symptoms reported Neurological/Psychological: See HPI Physical Exam - Vital signs Vitals: Temp Resp 99.5 F 21 H 03/04/19 13:11 03/04/19 13:11 - Notes Notes: GENERAL: Alert, No acute distress. HEAD: Normocephalic, atraumatic. EYES: Pupils equal, round, and reactive to light. Extraocular movements intact. ENT: Oral mucosa moist, tongue midline. NECK: Full range of motion. Supple. Trachea midline. LUNGS: Clear to auscultation bilaterally, no wheezes, rales, or rhonchi. No respiratory distress. HEART: Regular rate and rhythm. No murmur ABDOMEN: Soft, non-tender. Non-distended. Bowel sounds present in all 4 quadrants. EXTREMITIES: Moves all 4 extremities spontaneously. No edema, 5 out of 5 strength noted bilateral upper extremities. Right lower extremity is noted to have a below the knee amputation, dressing in place. Hooper appear well intact, no discharge erythema noted. Left lower extremity does have a boot noted, skin appears dry and discolored although nonerythematous. There does appear to be a wound to patient's heel, wound dressing in place. No obvious erythema noted. BACK: no cervical, thoracic, lumbar midline tenderness. No saddle anesthesia, normal distal neurovascular exam. NEUROLOGICAL: Alert and oriented x3. Normal speech. . PSYCH: Normal affect, normal mood. SKIN: Warm, dry, normal turgor. Course - Re-evaluation Re-evalutation: 03/04/19 15:49 I discussed this case with Yogi PEREZ. He would like the patient admitted to [facility] for continued care. Pt will be admitted under Dr. Lopez. Patient is currently receiving the fluid bolus, IV antibiotics ordered. Continues to be conscious alert and oriented x4. - Vital Signs Vital signs: Temp Pulse Resp BP Pulse Ox 99.1 F 19 95/46 L 100 03/04/19 15:10 03/04/19 15:16 03/04/19 15:16 03/04/19 15:16 - Laboratory Result Diagrams: 03/04/19 13:20 03/04/19 13:20 Laboratory results interpreted by me: 03/04/19 03/04/19 03/04/19 13:20 13:20 13:20 WBC 26.8 H RBC 2.78 L Hgb 8.2 L Hct 25.3 L RDW 14.8 H Seg Neuts % (Manual) 88 H Band Neutrophils % 2 L Lymphocytes % (Manual) 5 L Abs Neuts (Manual) 24.1 H PT 23.9 H APTT 41.9 H Sodium 131.6 L Chloride 96 L BUN 27 H Creatinine 1.60 H Est GFR ( Amer) 50 L Est GFR (MDRD) Non-Af 41 L Glucose 161 H Lactic Acid Calcium 8.3 L Creatine Kinase 40 L Albumin 2.5 L Urine Protein Urine Blood 03/04/19 03/04/19 14:50 15:09 WBC RBC Hgb Hct RDW Seg Neuts % (Manual) Band Neutrophils % Lymphocytes % (Manual) Abs Neuts (Manual) PT APTT Sodium Chloride BUN Creatinine Est GFR ( Amer) Est GFR (MDRD) Non-Af Glucose Lactic Acid 3.6 H Calcium Creatine Kinase Albumin Urine Protein 30 H Urine Blood MODERATE H Discharge - Discharge Clinical Impression: Sepsis associated hypotension Condition: Fair Disposition: ADMITTED INPATIENT Admitting Provider: Jessica (Hospitalist) Unit Admitted: [facility] - Follow up as needed
[2019-03-04] MEDS ORDERED: NORMAL SALINE 1000 ML 1,000 ML IV ONE ×3 (14:59→17:15)
[2019-03-04 15:00] LABS: ABSOLUTE LYMPHOCYTES# (MANUAL) 1.3 10^3/uL (0.5-4.7); ABSOLUTE MONOCYTES # (MANUAL) 1.3 10^3/uL (0.1-1.4); BAND NEUTROPHILS % (MANUAL) 2 % (3-5); BASOPHILS % (MANUAL) 0 % (0-2); EOSINOPHILS % (MANUAL) 0 % (0-6); LYMPHOCYTES % (MANUAL) 5 % (13-45); MONOCYTES % (MANUAL) 5 % (3-13); SEGMENTED NEUTROPHILS % (MAN) 88 % (42-78); TOTAL CELLS COUNTED 100
[2019-03-04 15:01] LABS: ANISOCYTOSIS SLIGHT; HYPOCHROMASIA 1+; PLATELET COMMENT ADEQUATE; POLYCHROMASIA SLIGHT
[2019-03-04 15:17] LABS: APPEARANCE,URINE CLOUDY; BILIRUBIN,URINE NEGATIVE (NEGATIVE); COLOR,URINE AMBER; GLUCOSE, URINE NEGATIVE (NEGATIVE); KETONES,URINE NEGATIVE (NEGATIVE); LEUKOCYTE ESTERASE,URINE NEGATIVE (NEGATIVE); NITRITE,URINE NEGATIVE (NEGATIVE); PROTEIN,URINE 30 mg/dL (NEGATIVE); URINE SPECIFIC GRAVITY 1.019; UROBILINOGEN,URINE NEGATIVE mg/dL (<2.0)
[2019-03-04] MEDS ORDERED: PIPERACILLIN/TAZOBACTAM 4.5 GM VIAL IV ONE (15:22)
[2019-03-04] MEDS ORDERED: VANCOMYCIN HCL INJ 1000 MG VIAL IV ONE (15:22)
[2019-03-04] MEDS ORDERED: NORMAL SALINE IV ONE (15:43)
[2019-03-04] MEDS ORDERED: MAGNESIUM HYDROXIDE SUSP 30 ML UDCUP PO PRN (16:35)
[2019-03-04] MEDS ORDERED: ONDANSETRON HCL INJ/PF 4 MG/2 ML SDV IV PRN (16:35)
[2019-03-04] MEDS ORDERED: ACETAMINOPHEN 325 MG TABLET PO PRN (16:35)
[2019-03-04] MEDS ORDERED: MAG HYDROX/AL HYDROX/SIMETH SUSP 30 ML UDCUP PO PRN (16:35)
[2019-03-04] MEDS ORDERED: ONDANSETRON 4 MG TAB.RAPDIS PO PRN (16:35)
[2019-03-04] MEDS ORDERED: VANCOMYCIN HCL 0 MG in DEXTROSE 5%-WATER 250 ML IV NR (17:00)
--- NOTE | 2019-03-04 17:11 | PDOC H&P ---
History of Present Illness Admission Date/PCP: 03/04/19 15:55 [facility] History of Present Illness: CAMILLE RAMIREZ is a 89 year old male who was admitted through the emergency room for a 1 day history of altered mental status, decreased appetite. 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 Patient did well postop and was sent to [facility]. On February 26 the last CBC showed a white count 5400, days white count is 26,800. Lactic acid level today is elevated at 3.6 She was also found to be hypotensive today with initial blood pressures being approximately 83/45. Based on patient's readings while in the hospital recently his average blood pressure should be around 120/60. Examination of the right knee shows the sutures and pascual to be intact, no drainage, no significant redness no warmth to the touch. Patient reportedly has a ulcer of the left heel as well. Patient's daughter is in the room and she speaks broken [place]ese, the [employer] system was used for interpretation. All Of her questions were answered. Patient is a DNR. Patient has blood cultures and urine cultures pending, patient was started on broad-spectrum antibiotics. Patient will also be given bolus of fluids initially. Past Medical History Cardiac Medical History: Reports: Coronary Artery Disease, Hypertension, Peripheral Vascular Disease Denies: Atrial Fibrillation, Congestive Heart Failure, Myocardial Infarction, Hyperlipidema Pulmonary Medical History: Denies: Asthma, Chronic Obstructive Pulmonary Disease (COPD) Neurological Medical History: Denies: Seizures Endocrine Medical History: Reports: Diabetes Mellitus Type 2, Hypothyroidism Denies: Diabetes Mellitus Type 1, Hyperthyroidism GI Medical History: Denies: Cirrhosis, Gastroesophageal Reflux Disease, Hepatitis Musculoskeltal Medical History: Denies: Arthritis, Gout Psychiatric Medical History: Denies: Depression Hematology: Reports: 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 Denies: Bleeding Tendencies Infectious Medical History: Reports: Methicillin-Resistant Staph Aureus Past Surgical History Past Surgical History: Reports: Orthopedic Surgery - right forefoot amputation, Vascular Surgery Social History Smoking Status: Unknown if Ever Smoked Frequency of Alcohol Use: None Hx Recreational Drug Use: No Drugs: None Hx Prescription Drug Abuse: No - Advance Directive Resuscitation Status: Do Not Resuscitate Family History Family History: DM, Hypertension Parental Family History Reviewed: No Children Family History Reviewed: No Sibling(s) Family History Reviewed.: No Medication/Allergy Allergies/Adverse Reactions: No Known Allergies Allergy (Verified 03/04/19 13:30) Review of Systems Constitutional: PRESENT: anorexia, weakness Cardiovascular: ABSENT: chest pain, dyspnea on exertion, edema, orthropnea, palpitations Respiratory: ABSENT: cough, hemoptysis Neurological: PRESENT: confusion Psychiatric: ABSENT: anxiety, depression, homidical ideation, suicidal ideation Physical Exam Vital Signs: Temp Pulse Resp BP Pulse Ox 99.1 F 19 95/45 L 97 03/04/19 15:10 03/04/19 16:16 03/04/19 16:16 03/04/19 16:16 Intake & Output 03/03/19 03/04/19 03/05/19 06:59 06:59 06:59 Weight 74.4 kg General appearance: PRESENT: no acute distress Respiratory exam: PRESENT: clear to auscultation cheryle. ABSENT: rales, rhonchi, wheezes Cardiovascular exam: PRESENT: RRR. ABSENT: diastolic murmur, rubs, systolic murmur Extremities exam: PRESENT: other - Postop wound below the knee amputation on the right does not appear to be infected Sutures and pascual intact, no drainage Results Laboratory Results: 03/04/19 13:20 03/04/19 13:20 03/04/19 03/04/19 03/04/19 13:20 13:20 13:20 WBC 26.8 H RBC 2.78 L Hgb 8.2 L Hct 25.3 L MCV 91 MCH 29.6 MCHC 32.4 RDW 14.8 H Plt Count 228 Seg Neutrophils % Not Reportable Sodium 131.6 L Potassium 4.9 Chloride 96 L Carbon Dioxide 28 Anion Gap 8 BUN 27 H Creatinine 1.60 H Est GFR ( Amer) 50 L Glucose 161 H Lactic Acid Cancelled Calcium 8.3 L Total Bilirubin 0.7 AST 21 Alkaline Phosphatase 70 Total Protein 6.3 Albumin 2.5 L Urine Color Urine Appearance Urine pH Ur Specific [place] Urine Protein Urine Glucose (UA) Urine Ketones Urine Blood Urine Nitrite Ur Leukocyte Esterase Urine WBC (Auto) Urine RBC (Auto) 03/04/19 03/04/19 14:50 15:09 WBC RBC Hgb Hct MCV MCH MCHC RDW Plt Count Seg Neutrophils % Sodium Potassium Chloride Carbon Dioxide Anion Gap BUN Creatinine Est GFR ( Amer) Glucose Lactic Acid 3.6 H Calcium Total Bilirubin AST Alkaline Phosphatase Total Protein Albumin Urine Color JALEEL Urine Appearance CLOUDY Urine pH 5.0 Ur Specific [place] 1.019 Urine Protein 30 H Urine Glucose (UA) NEGATIVE Urine Ketones NEGATIVE Urine Blood MODERATE H Urine Nitrite NEGATIVE Ur Leukocyte Esterase NEGATIVE Urine WBC (Auto) 4 Urine RBC (Auto) 17 03/04/19 03/04/19 13:20 13:20 Creatine Kinase 40 L Troponin I 0.038 Assessment and Plan - Diagnosis (1) Sepsis associated hypotension Is this a current diagnosis for this admission?: Yes (2) Diabetes Is this a current diagnosis for this admission?: Yes (3) Diabetic foot infection Is this a current diagnosis for this admission?: Yes (4) Sepsis Qualifiers: Sepsis type: sepsis due to unspecified organism Sepsis acute organ dysfunction status: unspecified Qualified Code(s): A41.9 - Sepsis, unspecified organism Is this a current diagnosis for this admission?: Yes - Plan Summary Summary: 89-year-old male who has a 1 day history of altered mental status with confusion, hypotension, leukocytosis, anorexia Patient to be admitted for IV fluids and IV antibiotics and for the work-up - Time Time Spent with patient: 35 or more minutes
[2019-03-04] MEDS ORDERED: OXYCODONE-ACETAMINOPHEN 5-325 MG TABLET PO PRN (17:15)
--- NOTE | 2019-03-04 17:15 | RADIOLOGY REPORT (SQ) ---
EXAM DESCRIPTION: CHEST SINGLE VIEW COMPLETED DATE/TIME: 03/04/2019 4:35 pm REASON FOR STUDY: sepsis COMPARISON: Chest radiographs 12/30/2018 EXAM PARAMETERS: NUMBER OF VIEWS: One view. TECHNIQUE: Single frontal radiographic view of the chest acquired. RADIATION DOSE: NA LIMITATIONS: None. FINDINGS: LUNGS AND PLEURA: Unchanged scarring at the left lateral lung base. No pneumothorax. No large pleural effusion. MEDIASTINUM AND HILAR STRUCTURES: No masses. Contour normal. HEART AND VASCULAR STRUCTURES: Heart normal in size. Normal vasculature. BONES: No acute findings. HARDWARE: None in the chest. OTHER: No other significant finding. IMPRESSION: UNCHANGED CHEST EXAM. NO ACUTE RADIOGRAPHIC FINDING IN THE CHEST. TECHNICAL DOCUMENTATION: JOB ID: [id number] [employer]- All Rights Reserved Reading location - IP/workstation name: [email or web address]
[2019-03-04] MEDS ORDERED: DEXTROSE 40% GEL 15 GM TUBE PO PRN ×2 (17:16)
[2019-03-04] MEDS ORDERED: DEXTROSE 50%-WATER 25 GM/50 ML DISP.SYRIN IV PRN ×2 (17:16)
[2019-03-04] MEDS ORDERED: GLUCAGON,HUMAN RECOMB 1 MG INJ IM PRN (17:16)
[2019-03-04] MEDS ORDERED: INSULIN LISPRO 100 UNIT/ML 3 ML VIAL ONE (17:54)
--- NOTE | 2019-03-04 19:02 | EKG REPORT ---
SEVERITY:- ABNORMAL ECG - SINUS TACHYCARDIA WITH IRREGULAR RATE [id number] FROM PACS PROBABLE LVH WITH SECONDARY REPOL ABNRM : Confirmed by: Hubert Mckoy MD 04-Mar-2019 19:01:10
[2019-03-04] MEDS: DOCUSATE SODIUM 100 MG CAPSULE PO SCH (19:15)
[2019-03-04] MEDS: NORMAL SALINE 1000 ML 1,000 ML IV PRN (19:24)
--- NOTE | 2019-03-04 20:29 | PDOC CONSULTATION ---
Consultation Consult Date: 03/04/19 Provider Consulted: SURGICAL SURGICALIST MD Consult reason:: Evaluate below-knee amputation stump for possibility of infection. History of Present Illness Admission Date/PCP: 03/04/19 15:55 [facility] History of Present Illness: CAMILLE RAMIREZ is a 89 year old male seen in consultation at the request of the hospitalist service. This is an 89-year-old male who is status post below-knee amputation for a severe diabetic foot infection. The patient presents to the e mergency department with leukocytosis and acute mental status changes with confusion. He is awake and alert today, however his family members state that he is much more confused than usual. The patient speaks Wolof, but translation is performed via his family members. The patient denies pain in his below-knee amputation stump on the right or his foot on the left. They do report that he has a small ulcerated area on the left heel. They deny any redness or drainage of either lower extremity. Of note, the patient has an indwelling Ramirez catheter. Past Medical History Cardiac Medical History: Reports: Coronary Artery Disease, Hypertension, Periphe ral Vascular Disease Denies: Atrial Fibrillation, Congestive Heart Failure, Myocardial Infarction, Hyperlipidema Pulmonary Medical History: Denies: Asthma, Chronic Obstructive Pulmonary Disease (COPD) Neurological Medical History: Denies: Seizures Endocrine Medical History: Reports: Diabetes Mellitus Type 2, Hypothyroidism Denies: Diabetes Mellitus Type 1, Hyperthyroidism GI Medical History: Denies: Cirrhosis, Gastroesophageal Reflux Disease, Hepatitis Musculoskeltal Medical History: Denies: Arthritis, Gout Psychiatric Medical History: Denies: Depression Hematology: Reports: 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 Denies: Bleeding Tendencies Infectious Medical History: Reports: Methicillin-Resistant Staph Aureus Past Surgical History Past Surgical History: Reports: Orthopedic Surgery - right below-knee amputation, Vascular Surgery Social History Smoking Status: Unknown if Ever Smoked Frequency of Alcohol Use: None Hx Recreational Drug Use: No Drugs: None Hx Prescription Drug Abuse: No - Advance Directive Resuscitation Status: Do Not Resuscitate Family History Family History: DM, Hypertension Parental Family History Reviewed: Yes Children Family History Reviewed: Yes Sibling(s) Family History Reviewed.: Yes Medication/Allergy Home Medications: Atorvastatin Calcium [Lipitor 20 mg Tablet] 20 mg PO QHS 03/04/19 Cyanocobalamin (Vitamin B-12) [Vitamin B-12] 1,000 mcg PO DAILY 03/04/19 Diltiazem HCl [Diltiazem ER] 240 mg PO DAILY 03/04/19 Insulin Regular, Human [Novolin R (Reg) Insulin 100 unit/mL] 10 unit SUBCUT DAILY@0800,1200 03/04/19 Isosorbide Mononitrate [Imdur 30 mg Tablet.er] 30 mg PO DAILY 03/04/19 Levothyroxine Sodium [Synthroid] 125 mcg PO Q6AM 03/04/19 NPH, Human Insulin Isophane [Novolin N (NPH) Insulin 100 unit/mL] 10 unit SUBCUT NOON 03/04/19 NPH, Human Insulin Isophane [Novolin N (NPH) Insulin 100 unit/mL] 45 unit SUBCUT QAM 03/04/19 Petrolatum,White/Lanolin [Vitamin A & D Ointment] 1 applic TP BID 03/04/19 Ranitidine HCl [Zantac] 150 mg PO QHS 03/04/19 Urea [Carmol 20% Cream 85 Gm] 1 applic TP BID 03/04/19 Allergies/Adverse Reactions: No Known Allergies Allergy (Verified 03/04/19 13:30) Review of Systems Constitutional: PRESENT: anorexia, chills, fatigue Eyes: ABSENT: visual disturbances Ears: ABSENT: hearing changes Nose, Mouth, and Throat: ABSENT: headache(s) Cardiovascular: ABSENT: chest pain Respiratory: ABSENT: cough, dyspnea Gastrointestinal: ABSENT: abdominal pain Genitourinary: PRESENT: other - Indwelling Ramirez catheter Integumentary: ABSENT: pruritus, rash Neurological: PRESENT: confusion. ABSENT: convulsions, dizziness Psychiatric: ABSENT: anxiety, depression Endocrine: ABSENT: cold intolerance, heat intolerance Hematologic/Lymphatic: ABSENT: easy bleeding, easy bruising Physical Exam Vital Signs: Temp Pulse Resp BP Pulse Ox 99.1 F 19 95/45 L 97 03/04/19 15:10 03/04/19 16:16 03/04/19 16:16 03/04/19 16:16 Intake & Output 03/03/19 03/04/19 03/05/19 06:59 06:59 06:59 Weight 74.4 kg General appearance: PRESENT: no acute distress, cooperative, thin Head exam: PRESENT: atraumatic, normocephalic Eye exam: PRESENT: EOMI, PERRLA Mouth exam: PRESENT: moist, neck supple Neck exam: ABSENT: tenderness, thyromegaly, tracheal deviation, tracheostomy Respiratory exam: PRESENT: unlabored. ABSENT: chest wall tenderness, tachypnea, wheezes Cardiovascular exam: ABSENT: tachycardia Vascular exam: PRESENT: normal capillary refill. ABSENT: pallor GI/Abdominal exam: PRESENT: soft. ABSENT: distended, rebound, rigid, tenderness Rectal exam: PRESENT: deferred Extremities exam: PRESENT: other - BKA site without significant induration, erythema, tenderness to palpation, bruising, or drainage. Neurological exam: PRESENT: alert, awake Psychiatric exam: ABSENT: agitated, anxious Skin exam: ABSENT: cyanosis, erythema Results Laboratory Results: 03/04/19 13:20 03/04/19 13:20 03/04/19 03/04/19 03/04/19 13:20 13:20 13:20 WBC 26.8 H RBC 2.78 L Hgb 8.2 L Hct 25.3 L MCV 91 MCH 29.6 MCHC 32.4 RDW 14.8 H Plt Count 228 Seg Neutrophils % Not Reportable Sodium 131.6 L Potassium 4.9 Chloride 96 L Carbon Dioxide 28 Anion Gap 8 BUN 27 H Creatinine 1.60 H Est GFR ( Amer) 50 L Glucose 161 H Lactic Acid Cancelled Calcium 8.3 L Total Bilirubin 0.7 AST 21 Alkaline Phosphatase 70 Total Protein 6.3 Albumin 2.5 L Urine Color Urine Appearance Urine pH Ur Specific Gerald Urine Protein Urine Glucose (UA) Urine Ketones Urine Blood Urine Nitrite Ur Leukocyte Esterase Urine WBC (Auto) Urine RBC (Auto) 03/04/19 03/04/19 14:50 15:09 WBC RBC Hgb Hct MCV MCH MCHC RDW Plt Count Seg Neutrophils % Sodium Potassium Chloride Carbon Dioxide Anion Gap BUN Creatinine Est GFR ( Amer) Glucose Lactic Acid 3.6 H Calcium Total Bilirubin AST Alkaline Phosphatase Total Protein Albumin Urine Color JALEEL Urine Appearance CLOUDY Urine pH 5.0 Ur Specific [place] 1.019 Urine Protein 30 H Urine Glucose (UA) NEGATIVE Urine Ketones NEGATIVE Urine Blood MODERATE H Urine Nitrite NEGATIVE Ur Leukocyte Esterase NEGATIVE Urine WBC (Auto) 4 Urine RBC (Auto) 17 03/04/19 03/04/19 13:20 13:20 Creatine Kinase 40 L Troponin I 0.038 Assessment & Plan - Diagnosis (1) Leukocytosis Is this a current diagnosis for this admission?: Yes (2) Dehydration Is this a current diagnosis for this admission?: Yes - Plan Summary Plan Summary: This is an 89-year-old male with leukocytosis, dehydration, and acute mental status changes. He is a diabetic. I have been asked to evaluate the BKA stump for overt signs of infection. At this time, I do not find any. He has no significant tenderness to the surgical site. I have examined the left heel, which has a small stage I decubitus, but no accompanying cellulitis or other signs of infection. At this time I have no recommendations regarding the below- knee amputation stump. Normal postoperative care is acceptable at this time. I recommend elevation of the left heel with nutritional support. Further work-up per medical team. Will follow.
[2019-03-04] MEDS ORDERED: RINGERS SOLUTION,LACTATED 1,000 ML IV ONE (21:15)
[2019-03-04] MEDS ORDERED: DILTIAZEM HCL 120 MG CAP.SR.24H PO SCH (22:00)
[2019-03-04] MEDS ORDERED: CEFAZOLIN 1 GM/D5W RTU 1 GM/50 ML RTUPB IV SCH (22:00)
[2019-03-04] MEDS: INSULIN LISPRO 100 UNIT/ML 3 ML VIAL SUBCUT SCH (22:58)
[2019-03-04] MEDS: HEPARIN SOD (PORCINE) 5,000 UNIT/ML 1 ML VIAL SUBCUT SCH (22:58)
[2019-03-04] MEDS: FAMOTIDINE 20 MG TABLET PO SCH (22:58)
[2019-03-04] MEDS: CEFAZOLIN SODIUM 1 GM in DEXTROSE 5%-WATER 50 ML IV SCH (22:59)
[2019-03-05] MEDS: NORMAL SALINE 1000 ML 1,000 ML IV PRN ×4 (05:00→22:04)
[2019-03-05] MEDS: LEVOTHYROXINE SODIUM 0.05 MG TABLET PO SCH (05:33)
[2019-03-05] MEDS: HEPARIN SOD (PORCINE) 5,000 UNIT/ML 1 ML VIAL SUBCUT SCH ×3 (05:33→22:09)
[2019-03-05 06:10] LABS: ABSOLUTE EOSINOPHILS # (AUTO) 0.1 10^3/uL (0.0-0.6); ABSOLUTE LYMPHOCYTES (AUTO) 1.3 10^3/uL (0.5-4.7); ABSOLUTE MONOCYTES (AUTO) 0.9 10^3/uL (0.1-1.4); ABSOLUTE NEUT (AUTO) 16.7 10^3/uL (1.7-8.2); BASOPHILS % (AUTO) 0.2 % (0-2); EOSINOPHILS % (AUTO) 0.4 % (0-6); HEMATOCRIT 21.6 % (37.9-51.0); LYMPHOCYTES % (AUTO) 6.6 % (13-45); MEAN CORPUSCULAR HEMOGLOBIN 30.2 pg (27.0-33.4); MEAN CORPUSCULAR HGB CONC 33.4 g/dL (32.0-36.0); MEAN CORPUSCULAR VOLUME 90 fl (80-97); MONOCYTES % (AUTO) 4.6 % (3-13); PLATELET COUNT 155 10^3/uL (150-450); RED BLOOD COUNT 2.39 10^6/uL (4.35-5.55); RED CELL DISTRIBUTION WIDTH 14.5 % (11.5-14.0); SEGMENTED NEUTROPHILS % (AUTO) 88.2 % (42-78); TOTAL CELLS COUNTED % (AUTO) 100 %
[2019-03-05 06:13] LABS: HEMOGLOBIN 7.2 g/dL (13.5-17.0)
[2019-03-05 06:38] LABS: BLOOD UREA NITROGEN 24 mg/dL (7-20); CALCIUM 7.3 mg/dL (8.4-10.2); CARBON DIOXIDE 25 mmol/L (22-30); CHLORIDE 106 mmol/L (98-107); GLUCOSE 121 mg/dL (75-110)
[2019-03-05 06:42] LABS: ANION GAP 5 (5-19); POTASSIUM 3.9 mmol/L (3.6-5.0)
--- NOTE | 2019-03-05 08:31 | PDOC PROGRESS REPORT ---
Subjective Progress Note for:: 03/05/19 Reason For Visit: SEPSIS,HYPOTENSION,ATAXIA,FEVER,DEMENTIA 03/05/2018 89-year-old male who was admitted yesterday through the emergency room for altered mental status, leukocytosis, sepsis He had a below the knee amputation approximately 10 days ago.. Patient comes from [facility]. Physical Exam Vital Signs: Temp Pulse Resp BP Pulse Ox 99 F 82 16 116/45 L 98 03/04/19 21:22 03/05/19 02:00 03/05/19 00:00 03/05/19 00:00 03/04/19 22:01 Intake & Output 03/04/19 03/05/19 03/06/19 06:59 06:59 06:59 Intake Total 4050 633 Output Total 0 Balance 4050 633 Weight 69.9 kg General appearance: PRESENT: no acute distress Respiratory exam: PRESENT: clear to auscultation cheryle. ABSENT: rales, rhonchi, w heezes Cardiovascular exam: PRESENT: RRR. ABSENT: diastolic murmur, rubs, systolic murmur Extremities exam: PRESENT: other - No sign of infection at postop wound site Psychiatric exam: PRESENT: appropriate affect, normal mood, other - Patient does not speaking Romanian, however his [id number] is in the room who helps t [employer]. ABSENT: homicidal ideation, suicidal ideation Results Laboratory Results: 03/05/19 05:36 03/05/19 05:36 03/04/19 03/04/19 03/04/19 13:20 13:20 13:20 WBC 26.8 H RBC 2.78 L Hgb 8.2 L Hct 25.3 L MCV 91 MCH 29.6 MCHC 32.4 RDW 14.8 H Plt Count 228 Seg Neutrophils % Not Reportable Sodium 131.6 L Potassium 4.9 Chloride 96 L Carbon Dioxide 28 Anion Gap 8 BUN 27 H Creatinine 1.60 H Est GFR ( Amer) 50 L Glucose 161 H Lactic Acid Cancelled Calcium 8.3 L Magnesium Total Bilirubin 0.7 AST 21 Alkaline Phosphatase 70 Total Protein 6.3 Albumin 2.5 L Free T3 pg/mL Urine Color Urine Appearance Urine pH Ur Specific [place] Urine Protein Urine Glucose (UA) Urine Ketones Urine Blood Urine Nitrite Ur Leukocyte Esterase Urine WBC (Auto) Urine RBC (Auto) 1003/04/19 03/04/19 14:50 15:09 17:00 WBC RBC Hgb Hct MCV MCH MCHC RDW Plt Count Seg Neutrophils % Sodium Potassium Chloride Carbon Dioxide Anion Gap BUN Creatinine Est GFR ( Amer) Glucose Lactic Acid 3.6 H Calcium Magnesium Total Bilirubin AST Alkaline Phosphatase Total Protein Albumin Free T3 pg/mL 1.71 L Urine Color JALEEL Urine Appearance CLOUDY Urine pH 5.0 Ur Specific [place] 1.019 Urine Protein 30 H Urine Glucose (UA) NEGATIVE Urine Ketones NEGATIVE Urine Blood MODERATE H Urine Nitrite NEGATIVE Ur Leukocyte Esterase NEGATIVE Urine WBC (Auto) 4 Urine RBC (Auto) 17 03/04/19 03/05/19 03/05/19 19:25 05:36 05:36 WBC 19.0 H RBC 2.39 L Hgb 7.2 L Hct 21.6 L MCV 90 MCH 30.2 MCHC 33.4 RDW 14.5 H Plt Count 155 Seg Neutrophils % 88.2 H Sodium 135.3 L Potassium 3.9 D Chloride 106 Carbon Dioxide 25 Anion Gap 5 BUN 24 H Creatinine 1.35 H Est GFR ( Amer) > 60 Glucose 121 H Lactic Acid 2.0 Calcium 7.3 L Magnesium 1.8 Total Bilirubin AST Alkaline Phosphatase Total Protein Albumin Free T3 pg/mL Urine Color Urine Appearance Urine pH Ur Specific [place] Urine Protein Urine Glucose (UA) Urine Ketones Urine Blood Urine Nitrite Ur Leukocyte Esterase Urine WBC (Auto) Urine RBC (Auto) 03/04/19 03/04/19 03/04/19 13:20 13:20 17:00 Creatine Kinase 40 L Troponin I 0.038 0.029 03/04/19 17:00 Creatine Kinase 34 L Troponin I Impressions: Chest X-Ray 03/04/19 16:17 IMPRESSION: UNCHANGED CHEST EXAM. NO ACUTE RADIOGRAPHIC FINDING IN THE CHEST. Assessment and Plan - Diagnosis (1) Sepsis associated hypotension Is this a current diagnosis for this admission?: Yes (2) Diabetes Is this a current diagnosis for this admission?: Yes (3) Diabetic foot infection Is this a current diagnosis for this admission?: Yes (4) Sepsis Qualifiers: Sepsis type: sepsis due to unspecified organism Sepsis acute organ dysfunction status: unspecified Qualified Code(s): A41.9 - Sepsis, unspecified organism Is this a current diagnosis for this admission?: Yes - Plan Summary Summary: 89-year-old male who has a 1 day history of altered mental status with confusion, hypotension, leukocytosis, anorexia Patient to be admitted for IV fluids and IV antibiotics and for the work-up 03/05/2019 I spoke to the son who was on the phone. White count is come down today to 19,000. General surgery has seen the patient and does not feel that this is a postop wound infection. Continue IV antibiotics and to search for a source of his fever, altered mental status, leukocytosis.. - Time Time Spent with patient: 15-24 minutes
[2019-03-05] MEDS: INSULIN LISPRO 100 UNIT/ML 3 ML VIAL SUBCUT SCH ×4 (08:37→21:57)
--- NOTE | 2019-03-05 09:20 | PDOC PROGRESS REPORT ---
Subjective Progress Note for:: 03/05/19 Subjective:: Appears very comfortable. Eating. Reason For Visit: SEPSIS,HYPOTENSION,ATAXIA,FEVER,DEMENTIA Physical Exam Vital Signs: Temp Pulse Resp BP Pulse Ox 98.6 F 72 16 103/47 L 100 03/05/19 08:28 03/05/19 08:28 03/05/19 08:28 03/05/19 08:28 03/05/19 08:28 Intake & Output 03/04/19 03/05/19 03/06/19 06:59 06:59 06:59 Intake Total 4050 633 Output Total 0 Balance 4050 633 Weight 69.9 kg General appearance: PRESENT: no acute distress, cooperative GI/Abdominal exam: PRESENT: other - Soft, nondistended, nontender to palpation. Extremities exam: PRESENT: other - Right BKA stump is clean dry and intact with pascual with no induration, no erythema, no drainage, and no tenderness. Left heel demonstrates no erythema and no drainage and no crepitus and no necrotic tissue. Results Laboratory Results: 03/05/19 05:36 03/05/19 05:36 03/04/19 03/04/19 03/04/19 13:20 13:20 13:20 WBC 26.8 H RBC 2.78 L Hgb 8.2 L Hct 25.3 L MCV 91 MCH 29.6 MCHC 32.4 RDW 14.8 H Plt Count 228 Seg Neutrophils % Not Reportable Sodium 131.6 L Potassium 4.9 Chloride 96 L Carbon Dioxide 28 Anion Gap 8 BUN 27 H Creatinine 1.60 H Est GFR ( Amer) 50 L Glucose 161 H Lactic Acid Cancelled Calcium 8.3 L Magnesium Total Bilirubin 0.7 AST 21 Alkaline Phosphatase 70 Total Protein 6.3 Albumin 2.5 L Free T3 pg/mL Urine Color Urine Appearance Urine pH Ur Specific [place] Urine Protein Urine Glucose (UA) Urine Ketones Urine Blood Urine Nitrite Ur Leukocyte Esterase Urine WBC (Auto) Urine RBC (Auto) 03/04/19 03/04/19 03/04/19 14:50 15:09 17:00 WBC RBC Hgb Hct MCV MCH MCHC RDW Plt Count Seg Neutrophils % Sodium Potassium Chloride Carbon Dioxide Anion Gap BUN Creatinine Est GFR ( Amer) Glucose Lactic Acid 3.6 H Calcium Magnesium Total Bilirubin AST Alkaline Phosphatase Total Protein Albumin Free T3 pg/mL 1.71 L Urine Color JALEEL Urine Appearance CLOUDY Urine pH 5.0 Ur Specific [place] 1.019 Urine Protein 30 H Urine Glucose (UA) NEGATIVE Urine Ketones NEGATIVE Urine Blood MODERATE H Urine Nitrite NEGATIVE Ur Leukocyte Esterase NEGATIVE Urine WBC (Auto) 4 Urine RBC (Auto) 17 03/04/19 03/05/19 03/05/19 19:25 05:36 05:36 WBC 19.0 H RBC 2.39 L Hgb 7.2 L Hct 21.6 L MCV 90 MCH 30.2 MCHC 33.4 RDW 14.5 H Plt Count 155 Seg Neutrophils % 88.2 H Sodium 135.3 L Potassium 3.9 D Chloride 106 Carbon Dioxide 25 Anion Gap 5 BUN 24 H Creatinine 1.35 H Est GFR ( Amer) > 60 Glucose 121 H Lactic Acid 2.0 Calcium 7.3 L Magnesium 1.8 Total Bilirubin AST Alkaline Phosphatase Total Protein Albumin Free T3 pg/mL Urine Color Urine Appearance Urine pH Ur Specific [place] Urine Protein Urine Glucose (UA) Urine Ketones Urine Blood Urine Nitrite Ur Leukocyte Esterase Urine WBC (Auto) Urine RBC (Auto) 03/04/19 03/04/19 03/04/19 13:20 13:20 17:00 Creatine Kinase 40 L Troponin I 0.038 0.029 03/04/19 17:00 Creatine Kinase 34 L Troponin I Impressions: Chest X-Ray 03/04/19 16:17 IMPRESSION: UNCHANGED CHEST EXAM. NO ACUTE RADIOGRAPHIC FINDING IN THE CHEST. Assessment & Plan - Diagnosis (1) Sepsis associated hypotension Is this a current diagnosis for this admission?: Yes Plan: Of unclear etiology. But overall patient appears improved. I do not think it was coming from his lower extremities. His BKA stump appears to be healing very well. He has the beginnings of a left heel stage I decubitus ulcer but other than protecting it from prolonged pressure I do not see any other intervention that is required. Surgery service signing off. Please call us for any questions or concerns. Recommend follow-up at the wound care clinic in a couple weeks after discharge for his BKA pascual removal. - Time Time Spent with patient: Less than 15 minutes Level of Care: MEDICAL
[2019-03-05] MEDS: FAMOTIDINE 20 MG TABLET PO SCH ×2 (09:46→22:09)
[2019-03-05] MEDS: DOCUSATE SODIUM 100 MG CAPSULE PO SCH ×2 (09:46→17:03)
[2019-03-05] MEDS: CEFAZOLIN SODIUM 1 GM in DEXTROSE 5%-WATER 50 ML IV SCH ×2 (09:47→22:04)
[2019-03-05] MEDS ORDERED: LISINOPRIL 5 MG TABLET PO SCH (10:00)
[2019-03-05] MEDS ORDERED: ISOSORBIDE MONONITRATE 30 MG TAB.ER.24H PO SCH (10:00)
[2019-03-05] MEDS ORDERED: CALCIUM GLUCONATE 2,000 MG in DEXTROSE 5%-WATER 100 ML IV ONE (15:30)
[2019-03-05] MEDS: VANCOMYCIN HCL 1,000 MG in DEXTROSE 5%-WATER 250 ML IV SCH (17:45)
[2019-03-06] MEDS: HEPARIN SOD (PORCINE) 5,000 UNIT/ML 1 ML VIAL SUBCUT SCH ×3 (05:41→21:59)
[2019-03-06] MEDS: LEVOTHYROXINE SODIUM 0.05 MG TABLET PO SCH (05:41)
[2019-03-06 05:57] LABS: INTERNATIONAL RATION (INR) 1.58
[2019-03-06 06:08] LABS: ABSOLUTE BASOPHILS # (AUTO) 0.1 10^3/uL (0.0-0.2); ABSOLUTE EOSINOPHILS # (AUTO) 0.2 10^3/uL (0.0-0.6); ABSOLUTE LYMPHOCYTES (AUTO) 1.5 10^3/uL (0.5-4.7); ABSOLUTE MONOCYTES (AUTO) 0.7 10^3/uL (0.1-1.4); ABSOLUTE NEUT (AUTO) 9.8 10^3/uL (1.7-8.2); BASOPHILS % (AUTO) 0.5 % (0-2); EOSINOPHILS % (AUTO) 1.5 % (0-6); HEMATOCRIT 23.2 % (37.9-51.0); LYMPHOCYTES % (AUTO) 12.2 % (13-45); MEAN CORPUSCULAR HEMOGLOBIN 29.8 pg (27.0-33.4); MEAN CORPUSCULAR VOLUME 90 fl (80-97); MONOCYTES % (AUTO) 5.5 % (3-13); PLATELET COUNT 156 10^3/uL (150-450); RED BLOOD COUNT 2.57 10^6/uL (4.35-5.55); RED CELL DISTRIBUTION WIDTH 14.4 % (11.5-14.0); SEGMENTED NEUTROPHILS % (AUTO) 80.3 % (42-78); TOTAL CELLS COUNTED % (AUTO) 100 %; WHITE BLOOD COUNT 12.2 10^3/uL (4.0-10.5)
[2019-03-06 06:13] LABS: HEMOGLOBIN 7.7 g/dL (13.5-17.0)
[2019-03-06 06:19] LABS: ANION GAP 5 (5-19); BLOOD UREA NITROGEN 16 mg/dL (7-20); CALCIUM 7.5 mg/dL (8.4-10.2); CARBON DIOXIDE 22 mmol/L (22-30); CHLORIDE 107 mmol/L (98-107); GLUCOSE 102 mg/dL (75-110)
[2019-03-06] MEDS: INSULIN LISPRO 100 UNIT/ML 3 ML VIAL SUBCUT SCH ×4 (07:34→22:00)
[2019-03-06] MEDS: CEFAZOLIN SODIUM 1 GM in DEXTROSE 5%-WATER 50 ML IV SCH ×2 (09:29→21:59)
[2019-03-06] MEDS: FAMOTIDINE 20 MG TABLET PO SCH ×2 (09:31→21:59)
[2019-03-06] MEDS: DOCUSATE SODIUM 100 MG CAPSULE PO SCH ×2 (09:31→17:52)
--- NOTE | 2019-03-06 10:05 | PDOC PROGRESS REPORT ---
Subjective Progress Note for:: 03/06/19 Reason For Visit: SEPSIS,HYPOTENSION,ATAXIA,FEVER,DEMENTIA Physical Exam Vital Signs: Temp Pulse Resp BP Pulse Ox 98.6 F 72 22 H 140/58 H 99 03/06/19 07:25 03/06/19 07:25 03/06/19 07:25 03/06/19 07:25 03/06/19 07:25 Intake & Output 03/05/19 03/06/19 03/07/19 06:59 06:59 06:59 Intake Total 4050 3750 1300 Output Total 0 1785 Balance 4050 1965 1300 Weight 69.9 kg 81.3 kg General appearance: PRESENT: no acute distress, other - Patient resting co mfortably Respiratory exam: PRESENT: clear to auscultation cheryle. ABSENT: rales, rhonchi, wheezes Cardiovascular exam: PRESENT: RRR. ABSENT: diastolic murmur, rubs, systolic murmur Neurological exam: PRESENT: alert, awake, oriented to person, oriented to place, oriented to time, oriented to situation, CN II-XII grossly intact. ABSENT: motor sensory deficit Psychiatric exam: PRESENT: appropriate affect, normal mood, other - Unfortunately patient speaks no Uzbek only Czech, smiles appears to be in no distress. ABSENT: homicidal ideation, suicidal ideation Results Laboratory Results: 03/06/19 05:17 03/06/19 05:17 03/06/19 03/06/19 05:17 05:17 WBC 12.2 H RBC 2.57 L Hgb 7.7 L Hct 23.2 L MCV 90 MCH 29.8 MCHC 33.0 RDW 14.4 H Plt Count 156 Seg Neutrophils % 80.3 H Sodium 133.9 L Potassium 4.0 Chloride 107 Carbon Dioxide 22 Anion Gap 5 BUN 16 Creatinine 1.11 Est GFR ( Amer) > 60 Glucose 102 Calcium 7.5 L 03/04/19 03/04/19 03/04/19 13:20 13:20 17:00 Creatine Kinase 40 L Troponin I 0.038 0.029 03/04/19 17:00 Creatine Kinase 34 L Troponin I Impressions: Chest X-Ray 03/04/19 16:17 IMPRESSION: UNCHANGED CHEST EXAM. NO ACUTE RADIOGRAPHIC FINDING IN THE CHEST. Assessment and Plan - Diagnosis (1) Sepsis associated hypotension Is this a current diagnosis for this admission?: Yes (2) Diabetes Is this a current diagnosis for this admission?: Yes (3) Diabetic foot infection Is this a current diagnosis for this admission?: Yes (4) Sepsis Qualifiers: Sepsis type: sepsis due to unspecified organism Sepsis acute organ dysfunction status: unspecified Qualified Code(s): A41.9 - Sepsis, unspecified organism Is this a current diagnosis for this admission?: Yes (6) Status post below-knee amputation Is this a current diagnosis for this admission?: Yes - Plan Summary Summary: 89-year-old male who has a 1 day history of altered mental status with confusion, hypotension, leukocytosis, anorexia Patient to be admitted for IV fluids and IV antibiotics and for the work-up 03/05/2019 I spoke to the son who was on the phone. White count is come down today to 19,000. General surgery has seen the patient and does not feel that this is a postop wound infection. Continue IV antibiotics and to search for a source of his fever, altered mental status, leukocytosis.. 03/06/2019 Patient's vital signs are stable. Labs are improving his white count is now down to 12,000, SARWAT globin is stable at 7.4, I will see him is come up slightly to 7.5. We will give another round of calcium today Patient has Ramirez catheter in place. Blood culture showed no growth in 24 hours, urine culture shows no growth in 1 day Patient currently on day 3 of [facility] has signed off Would like to discharge back to retirement tomorrow if at all possible - Time Time Spent with patient: 25-34 minutes
[2019-03-06] MEDS: NORMAL SALINE 1000 ML 1,000 ML IV PRN (17:56)
[2019-03-06] MEDS: VANCOMYCIN HCL 1,000 MG in DEXTROSE 5%-WATER 250 ML IV SCH (17:56)
[2019-03-07] MEDS: NORMAL SALINE 1000 ML 1,000 ML IV PRN (03:30)
[2019-03-07] MEDS: LEVOTHYROXINE SODIUM 0.05 MG TABLET PO SCH (07:30)
[2019-03-07] MEDS: HEPARIN SOD (PORCINE) 5,000 UNIT/ML 1 ML VIAL SUBCUT SCH ×2 (07:30→14:11)
[2019-03-07] MEDS: INSULIN LISPRO 100 UNIT/ML 3 ML VIAL SUBCUT SCH ×3 (09:20→16:31)
[2019-03-07] MEDS: DOCUSATE SODIUM 100 MG CAPSULE PO SCH ×2 (09:29→17:32)
[2019-03-07] MEDS: FAMOTIDINE 20 MG TABLET PO SCH (09:29)
[2019-03-07] MEDS: CEFAZOLIN SODIUM 1 GM in DEXTROSE 5%-WATER 50 ML IV SCH (09:29)
--- NOTE | 2019-03-07 10:04 | PDOC TRANSFER SUMMARY ---
Impression - Admit/DC Date/PCP Admission Date/Primary Care Provider: 03/04/19 15:[facility] Discharge Date: 03/07/19 - Discharge Diagnosis (1) Sepsis associated hypotension Is this a current diagnosis for this admission?: Yes (2) Diabetes Is this a current diagnosis for this admission?: Yes (3) Diabetic foot infection Is this a current diagnosis for this admission?: Yes (4) Sepsis Is this a current diagnosis for this admission?: Yes (5) Leukocytosis Is this a current diagnosis for this admission?: Yes (6) Status post below-knee amputation Is this a current diagnosis for this admission?: Yes (7) Dementia Is this a current diagnosis for this admission?: Yes (8) Hypothyroidism Is this a current diagnosis for this admission?: Yes - Assessment Summary: 89-year-old male who has a 1 day history of altered mental status with confusion, hypotension, leukocytosis, anorexia Patient to be admitted for IV fluids and IV antibiotics and for the work-up 03/05/2019 I spoke to the son who was on the phone. White count is come down today to 19,000. General surgery has seen the patient and does not feel that this is a postop wound infection. Continue IV antibiotics and to search for a source of his fever, altered mental status, leukocytosis.. 03/06/2019 Patient's vital signs are stable. Labs are improving his white count is now down to 12,000, SARWAT globin is stable at 7.4, I will see him is come up slightly to 7.5. We will give another round of calcium today Patient has Ramirez catheter in place. Blood culture showed no growth in 24 hours, urine culture shows no growth in 1 day Patient currently on day 3 of [facility] has signed off Would like to discharge back to long term tomorrow if at all possible 03/07/2019 Patient is being discharged back to retirement facility today Urine culture blood cultures are both negative x48 hours. Patient has been on vancomycin and Ancef since admission Patient is being discharged back on Keflex 500 mg 21 tablets 1 3 times daily Also discharged back on new Synthroid dose. Patient's TSH on last admission was very low therefore his Synthroid dose has been reduced Patient is to return to the wound clinic in approximately 2 weeks for suture and staple removal - Additional Information Resuscitation Status: Do Not Resuscitate Discharge Diet: As Tolerated Discharge Activity: Balance Activity w/Rest [facility]] - Follow up as needed Prescriptions: Cephalexin Monohydrate [Keflex 500 mg Capsule] 500 mg PO TID 7 Days #21 capsule Levothyroxine Sodium [Synthroid 0.05 mg Tablet] 0.05 mg PO Q6AM 30 Days #30 tablet Home Medications: Atorvastatin Calcium [Lipitor 20 mg Tablet] 20 mg PO QHS 03/04/19 Cyanocobalamin (Vitamin B-12) [Vitamin B-12] 1,000 mcg PO DAILY 03/04/19 Diltiazem HCl [Diltiazem 24Hr ER] 240 mg PO DAILY 03/04/19 Insulin Regular, Human [Novolin R (Reg) Insulin 100 unit/mL] 10 unit SUBCUT DAILY@0800,1200 03/04/19 Isosorbide Mononitrate [Imdur 30 mg Tablet.er] 30 mg PO DAILY 03/04/19 NPH, Human Insulin Isophane [Novolin N (NPH) Insulin 100 unit/mL] 10 unit SUBCUT NOON 03/04/19 NPH, Human Insulin Isophane [Novolin N (NPH) Insulin 100 unit/mL] 45 unit SUBCUT QAM 03/04/19 Petrolatum,White/Lanolin [Vitamin A and D Ointment] 1 applic TP BID 03/04/19 Ranitidine HCl [Zantac] 150 mg PO QHS 03/04/19 Urea [Carmol 20% Cream 85 gm] 1 applic TP BID 03/04/19 Cephalexin Monohydrate [Keflex 500 mg Capsule] 500 mg PO TID 7 Days #21 capsule 03/07/19 Levothyroxine Sodium [Synthroid 0.05 mg Tablet] 0.05 mg PO Q6AM 30 Days #30 tablet 03/07/19 History of Present Illiness History of Present Illness: CAMILLE RAMIREZ is a 89 year old male who was admitted through the emergency room for a 1 day history of altered mental status, decreased appetite. 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 Patient did well postop and was sent to [facility]. On February 26 the last CBC showed a white count 5400, days white count is 26,800. Lactic acid level today is elevated at 3.6 She was also found to be hypotensive today with initial blood pressures being approximately 83/45. Based on patient's readings while in the hospital recently his average blood pressure should be around 120/60. Examination of the right knee shows the sutures and pascual to be intact, no drainage, no significant redness no warmth to the touch. Patient reportedly has a ulcer of the left heel as well. Patient's daughter is in the room and she speaks broken Congolese, the [employer] system was used for interpretation. All Of her questions were answered. Patient is a DNR. Patient has blood cultures and urine cultures pending, patient was started on broad-spectrum antibiotics. Patient will also be given bolus of fluids initially. Physical Exam Vital Signs: Temp Pulse Resp BP Pulse Ox 98.7 F 72 24 H 131/51 H 100 03/07/19 07:42 03/07/19 07:42 03/07/19 07:42 03/07/19 07:42 03/07/19 07:42 Intake & Output 03/06/19 03/07/19 03/08/19 06:59 06:59 05:59 Intake Total 3750 2890 Output Total 1785 2175 Balance 1965 715 Weight 81.3 kg 83.8 kg Results Laboratory Results: WBC 12.2 10^3/uL (4.0-10.5) H 03/06/19 05:17 RBC 2.57 10^6/uL (4.35-5.55) L 03/06/19 05:17 Hgb 7.7 g/dL (13.5-17.0) L 03/06/19 05:17 Hct 23.2 % (37.9-51.0) L 03/06/19 05:17 MCV 90 fl (80-97) 03/06/19 05:17 MCH 29.8 pg (27.0-33.4) 03/06/19 05:17 MCHC 33.0 g/dL (32.0-36.0) 03/06/19 05:17 RDW 14.4 % (11.5-14.0) H 03/06/19 05:17 Plt Count 156 10^3/uL (150-450) 03/06/19 05:17 Lymph % (Auto) 12.2 % (13-45) L 03/06/19 05:17 Rhea % (Auto) 5.5 % (3-13) 03/06/19 05:17 Eos % (Auto) 1.5 % (0-6) 03/06/19 05:17 Baso % (Auto) 0.5 % (0-2) 03/06/19 05:17 Absolute Neuts (auto) 9.8 10^3/uL (1.7-8.2) H 03/06/19 05:17 Absolute Lymphs (auto) 1.5 10^3/uL (0.5-4.7) 03/06/19 05:17 Absolute Monos (auto) 0.7 10^3/uL (0.1-1.4) 03/06/19 05:17 Absolute Eos (auto) 0.2 10^3/uL (0.0-0.6) 03/06/19 05:17 Absolute Basos (auto) 0.1 10^3/uL (0.0-0.2) 03/06/19 05:17 Total Counted 100 03/04/19 13:20 Seg Neutrophils % 80.3 % (42-78) H 03/06/19 05:17 Seg Neuts % (Manual) 88 % (42-78) H 03/04/19 13:20 Band Neutrophils % 2 % (3-5) L 03/04/19 13:20 Lymphocytes % (Manual) 5 % (13-45) L 03/04/19 13:20 Monocytes % (Manual) 5 % (3-13) 03/04/19 13:20 Eosinophils % (Manual) 0 % (0-6) 03/04/19 13:20 Basophils % (Manual) 0 % (0-2) 03/04/19 13:20 Abs Neuts (Manual) 24.1 10^3/uL (1.7-8.2) H 03/04/19 13:20 Abs Lymphs (Manual) 1.3 10^3/uL (0.5-4.7) 03/04/19 13:20 Abs Monocytes (Manual) 1.3 10^3/uL (0.1-1.4) 03/04/19 13:20 Absolute Eos (Manual) 0.0 10^3/uL (0.0-0.6) 03/04/19 13:20 Abs Basophils (Manual) 0.0 10^3/uL (0.0-0.2) 03/04/19 13:20 Platelet Comment ADEQUATE 03/04/19 13:20 Polychromasia SLIGHT 03/04/19 13:20 Hypochromasia 1+ 03/04/19 13:20 Anisocytosis SLIGHT 03/04/19 13:20 PT 19.0 SEC (11.4-15.4) H 03/06/19 05:17 INR 1.58 03/06/19 05:17 APTT 41.9 SEC (23.5-35.8) H 03/04/19 13:20 Sodium 133.9 mmol/L (137-145) L 03/06/19 05:17 Potassium 4.0 mmol/L (3.6-5.0) 03/06/19 05:17 Chloride 107 mmol/L (98-107) 03/06/19 05:17 Carbon Dioxide 22 mmol/L (22-30) 03/06/19 05:17 Anion Gap 5 (5-19) 03/06/19 05:17 BUN 16 mg/dL (7-20) 03/06/19 05:17 Creatinine 1.11 mg/dL (0.52-1.25) 03/06/19 05:17 Est GFR ( Amer) > 60 (>60) 03/06/19 05:17 Est GFR (MDRD) Non-Af > 60 (>60) 03/06/19 05:17 Glucose 102 mg/dL (75-110) 03/06/19 05:17 POC Glucose 96 mg/dL (70-110) 03/07/19 07:36 Lactic Acid 2.0 mmol/L (0.7-2.1) 03/04/19 19:25 Calcium 7.5 mg/dL (8.4-10.2) L 03/06/19 05:17 Magnesium 1.8 mg/dL (1.6-2.3) 03/05/19 05:36 Total Bilirubin 0.7 mg/dL (0.2-1.3) 03/04/19 13:20 Direct Bilirubin 0.3 mg/dL (0.0-0.4) 03/04/19 13:20 Neonat Total Bilirubin Not Reportable 03/04/19 13:20 Neonat Direct Bilirubin Not Reportable 03/04/19 13:20 Neonat Indirect Bili Not Reportable 03/04/19 13:20 AST 21 U/L (17-59) 03/04/19 13:20 ALT 10 U/L (<50) 03/04/19 13:20 Alkaline Phosphatase 70 U/L (38-126) 03/04/19 13:20 Creatine Kinase 34 U/L (55-170) L 03/04/19 17:00 Troponin I 0.029 ng/mL 03/04/19 17:00 Total Protein 6.3 g/dL (6.3-8.2) 03/04/19 13:20 Albumin 2.5 g/dL (3.5-5.0) L 03/04/19 13:20 Free T3 pg/mL 1.71 pg/mL (2.77-5.27) L 03/04/19 17:00 Urine Color JALEEL 03/04/19 14:50 Urine Appearance CLOUDY 03/04/19 14:50 Urine pH 5.0 (5.0-9.0) 03/04/19 14:50 Ur Specific [place] 1.019 03/04/19 14:50 Urine Protein 30 mg/dL (NEGATIVE) H 03/04/19 14:50 Urine Glucose (UA) NEGATIVE mg/dL (NEGATIVE) 03/04/19 14:50 Urine Ketones NEGATIVE mg/dL (NEGATIVE) 03/04/19 14:50 Urine Blood MODERATE (NEGATIVE) H 03/04/19 14:50 Urine Nitrite NEGATIVE (NEGATIVE) 03/04/19 14:50 Urine Bilirubin NEGATIVE (NEGATIVE) 03/04/19 14:50 Urine Urobilinogen NEGATIVE mg/dL (<2.0) 03/04/19 14:50 Ur Leukocyte Esterase NEGATIVE (NEGATIVE) 03/04/19 14:50 Urine WBC (Auto) 4 /HPF 03/04/19 14:50 Urine RBC (Auto) 17 /HPF 03/04/19 14:50 Urine Bacteria (Auto) 1+ /HPF 03/04/19 14:50 Squamous Epi Cells Auto 2 /HPF 03/04/19 14:50 Urine Mucus (Auto) FEW /LPF 03/04/19 14:50 Urine Ascorbic Acid NEGATIVE (NEGATIVE) 03/04/19 14:50 03/04/19 03/04/19 13:20 17:00 Troponin I 0.038 0.029 Impressions: Chest X-Ray 03/04/19 16:17 IMPRESSION: UNCHANGED CHEST EXAM. NO ACUTE RADIOGRAPHIC FINDING IN THE CHEST. Stroke Is this a Stroke Patient?: No Acute Heart Failure - Is this a Heart Failure Patient?: No
[2019-03-07 16:31] VITALS: BP 144/74
[2019-03-07] MEDS: VANCOMYCIN HCL 1,000 MG in DEXTROSE 5%-WATER 250 ML IV SCH (17:32)
== END 2019-03-07 19:54 | DRG 872 ==
LOC: ER 12:58 → EH 15:55 → 3W 22:19
PROVIDERS: ADMIT Hospitalist; ATTEND Hospitalist
DX: A41.9 Sepsis, unspecified organism (principal); L89.621 Pressure ulcer of left heel, stage 1; E13.621 Other specified diabetes mellitus with foot ulcer; D63.8 Anemia in other chronic diseases classified elsewhere; F03.90 Unspecified dementia, unspecified severity, without behavioral disturbance, psychotic disturbance, mood disturbance, and anxiety; E03.9 Hypothyroidism, unspecified; Z66 Do not resuscitate; I25.10 Atherosclerotic heart disease of native coronary artery without angina pectoris; I10 Essential (primary) hypertension; E86.0 Dehydration; B95.61 Methicillin susceptible Staphylococcus aureus infection as the cause of diseases classified elsewhere; Z79.4 Long term (current) use of insulin; Z89.511 Acquired absence of right leg below knee; Z86.14 Personal history of Methicillin resistant Staphylococcus aureus infection; Z83.3 Family history of diabetes mellitus; Z82.49 Family history of ischemic heart disease and other diseases of the circulatory system
CPT/HCPCS: 36415; 71045; 80048; 80053; 81001; 82550; 82962; 83605; 83735; 84481; 84484; 85025; 85610; 85730; 87040; 87086; 93005; 93010; 99285; J0610; J0690; J1644; J1815; J2543; J3370; J7030; J7060; J7120

== ENCOUNTER 2019-03-23 05:20 | Inpatient (IN) | payer OTHER, MEDICARE ==
[2019-03-23] MEDS ORDERED: NORMAL SALINE IV PRN (05:25)
--- NOTE | 2019-03-23 05:41 | ER Document Report ---
ED General - General Information source: Emergency Med Personnel Cannot obtain history due to: Dementia TRAVEL OUTSIDE OF THE [place] IN LAST 30 DAYS: No <ALEJANDRA PATEL - Last Filed: 03/23/19 05:33> - General Information source: Patient, Relative - Son-in-law and daughter, Emergency Med Personnel Cannot obtain history due to: Dementia <HALINA MUHAMMAD - Last Filed: 03/23/19 09:35> - General Chief Complaint: Vomiting Stated Complaint: VOMITING Time Seen by Provider: 03/23/19 05:25 Notes: This 89-year-old male presents to the emergency department this morning as poorly responsive possible sepsis with a lactate by EMS of 8.4. Apparently found him poorly responsive and he apparently had a large episode of vomitus with associated unresponsiveness. He has a history of diabetes mellitus, hypertension, prior CVA, and right BKA approximately 4 weeks ago. Patient has not been responsive to verbal stimuli has has some responsiveness to painful stimuli. Vital test signs by EMS note blood pressure of 93/60, O2 sat of 91% with a heart rate 100-140. Blood sugar fingerstick 145 and a end-tidal CO2 of 33. An axillary temp performed during the transport was 96. There was some concern of a possible facial droop, however there are no other findings to suggest acute CVA. (ALEJANDRA PATEL) - Related Data Allergies/Adverse Reactions: No Known Allergies Allergy (Verified 03/04/19 13:30) Past Medical History - General Information source: Emergency Med Personnel Cannot obtain history due to: Altered mental status - Social History Family History: DM, Hypertension - Past Medical History Cardiac Medical History: Reports: Hx Coronary Artery Disease, Hx Hypertension, Hx Peripheral Vascular Disease Denies: Hx Atrial Fibrillation, Hx Congestive Heart Failure, Hx Heart Attack, Hx Hypercholesterolemia Pulmonary Medical History: Denies: Hx Asthma, Hx COPD Neurological Medical History: Denies: Hx Seizures Endocrine Medical History: Reports: Hx Diabetes Mellitus Type 2, Hx Hypothyroidism. Denies: Hx Diabetes Mellitus Type 1, Hx Hyperthyroidism Renal/ Medical History: Denies: Hx Peritoneal Dialysis GI Medical History: Denies: Hx Cirrhosis, Hx Gastroesophageal Reflux Disease, Hx Hepatitis Musculoskeletal Medical History: Denies Hx Arthritis, Denies Hx Gout Psychiatric Medical History: Denies: Hx Depression Infectious Medical History: Reports: Hx MRSA. Denies: Hx Hepatitis Past Surgical History: Reports: Hx Orthopedic Surgery - right below-knee ampu tation, Hx Vascular Surgery - Immunizations Hx Pneumococcal Vaccination: 03/04/19 <ALEJANDRA PATEL - Last Filed: 03/23/19 05:33> - General Information source: Patient - Son-in-law and daughter, Relative, Emergency Med Personnel Cannot obtain history due to: Altered mental status - Social History Smoking Status: Unknown if Ever Smoked <HALINA MUHAMMAD - Last Filed: 03/23/19 09:35> Review of Systems - Review of Systems -: Yes ROS unobtainable due to patient's medical condition - Altered mental status and nonverbal state. <ALEJANDRA PATEL - Last Filed: 03/23/19 05:33> Physical Exam <ALEJANDRA PATEL - Last Filed: 03/23/19 05:33> - Vital signs Vitals: Pulse Resp BP Pulse Ox 101 H 31 H 129/110 H 96 03/23/19 05:20 03/23/19 05:20 03/23/19 05:20 03/23/19 05:20 - Notes Notes: PHYSICAL EXAMINATION: GENERAL: Chronically ill-appearing elderly man presents with possible sepsis HEAD: Atraumatic, normocephalic.EYES: PERRL, sclera anicteric, conjunctiva pink ENT: nares patent, oropharynx clear,no lesions. Moist mucous membranes . NECK: Normal range of motion, supple without lymphadenopathy LUNGS: Decreased air movement with crackles noted right sided. No wheezes rales or rhonchi. HEART: Regular rate and rhythm without murmurs ABDOMEN: Soft, nontender, normoactive bowel sounds. No guarding, no rebound. No masses appreciated. EXTREMITIES: Right BKA, dressing in place. Left lower extremity with hyperpigmented skin, 1+edema NEUROLOGICAL: No focal neurological deficits. Able to follow commands. SKIN: Warm, Dry, normal turgor, no rashes or lesions noted. (ALEJANDRA PATEL) Course <ALEJANDRA PATEL - Last Filed: 03/23/19 05:33> - Laboratory Result Diagrams: 03/23/19 05:30 03/23/19 05:24 <HALINA MUHAMMAD - Last Filed: 03/23/19 09:35> - Re-evaluation Re-evalutation: 03/23/19 05:56 2 L of nasal cannula the patient's O2 sat improved,, IV fluids begun sepsis protocol 30 mL/kg, blood cultures, lactate, laboratory studies were performed. Zosyn 3.375 g IV was given empirically. Patient appears to be more alert and more responsive. I am transitioning the patient's care to and will assume his care. (ALEJANDRA PATEL) 03/23/19 07:53 Reevaluated the patient. He appears dehydrated with dry oral mucosa. He still receiving IV fluids as well as oxygen. I spoke to both the daughter as well as the son-in-law, in Italian, and they state that the patient does have known baseline dementia and does not talk much at home however he was less responsive and less alert yesterday. No history of oxygen use at home, new oxygen requirement here in the ED. Labs notable for lactic acidosis. No significant leukocytosis or left shift. However vitals remain tachycardic with heart rates 105-111. Blood pressure is stable. Concern for sepsis physiology by prior provider so the patient was given Zosyn. Upon my clinical evaluation, the betty cooley does have decreased breath sounds in the right lower lobe with some crackles although the chest x-ray has been read as negative. Likely related to early or developing pneumonia. Discussed case with , who accepted admission. (HALINA MUHAMMAD) - Vital Signs Vital signs: Temp Pulse Resp BP Pulse Ox 101 H 14 102/73 100 03/23/19 05:20 03/23/19 08:21 03/23/19 08:21 03/23/19 08:21 - Laboratory Laboratory results interpreted by wi: 03/23/19 03/23/19 03/23/19 05:24 05:24 05:24 RBC Hgb Hct RDW PT 17.2 H ABG HCO3 ABG Total CO2 Sodium 135.9 L BUN 23 H Glucose 162 H POC Glucose Lactic Acid 5.3 H Alkaline Phosphatase 141 H Albumin 2.6 L 03/23/19 03/23/19 03/23/19 05:26 05:30 05:41 RBC 3.20 L Hgb 9.5 L Hct 29.1 L RDW 16.0 H PT ABG HCO3 27.1 H ABG Total CO2 28.5 H Sodium BUN Glucose POC Glucose 186 H Lactic Acid Alkaline Phosphatase Albumin Discharge <ALEJANDRA PATEL - Last Filed: 03/23/19 05:33> - Discharge Admitting Provider: Sunil (Hospitalist) Unit Admitted: Telemetry <HALINA MUHAMMAD - Last Filed: 03/23/19 09:35> - Discharge Clinical Impression: Sepsis, Altered mental status, Lactic acid acidosis, Hypoxia Condition: Good Disposition: ADMITTED INPATIENT
[2019-03-23 05:56] LABS: INTERNATIONAL RATION (INR) 1.39; PROTHROMBIN TIME 17.2 SEC (11.4-15.4)
[2019-03-23 05:56] LABS: ABSOLUTE EOSINOPHILS # (AUTO) 0.1 10^3/uL (0.0-0.6); ABSOLUTE LYMPHOCYTES (AUTO) 2.6 10^3/uL (0.5-4.7); ABSOLUTE MONOCYTES (AUTO) 0.6 10^3/uL (0.1-1.4); ABSOLUTE NEUT (AUTO) 5.5 10^3/uL (1.7-8.2); BASOPHILS % (AUTO) 0.6 % (0-2); HEMATOCRIT 29.1 % (37.9-51.0); HEMOGLOBIN 9.5 g/dL (13.5-17.0); LYMPHOCYTES % (AUTO) 29.5 % (13-45); MEAN CORPUSCULAR HEMOGLOBIN 29.6 pg (27.0-33.4); MEAN CORPUSCULAR HGB CONC 32.5 g/dL (32.0-36.0); MEAN CORPUSCULAR VOLUME 91 fl (80-97); PLATELET COUNT 252 10^3/uL (150-450); SEGMENTED NEUTROPHILS % (AUTO) 61.9 % (42-78); TOTAL CELLS COUNTED % (AUTO) 100 %; WHITE BLOOD COUNT 8.9 10^3/uL (4.0-10.5)
[2019-03-23] MEDS ORDERED: PIPERACILLIN SODIUM/TAZOBACTAM 4.5 GM in NORMAL SALINE 100 ML IV SCH (06:00)
--- NOTE | 2019-03-23 06:07 | RADIOLOGY REPORT (SQ) ---
Chest single view on 03/23/2019 at 5:46 AM CLINICAL INDICATION: Sepsis COMPARISON: 03/04/2019 FINDINGS: There is slight elevation of the right hemidiaphragm. There is minimal basilar atelectasis or scarring. The lungs are otherwise clear. Cardiac, hilar and mediastinal contours are within normal limits. Mild vascular calcification is noted in the aorta. Pulmonary vascularity is within normal limits. IMPRESSION: No acute disease.
[2019-03-23 06:14] LABS: ARTERIAL BLOOD BASE EXCESS 2.3 mmol/L; ARTERIAL BLOOD FIO2 4L; ARTERIAL BLOOD H2CO3 1.31 mmol/L (1.05-1.35); ARTERIAL BLOOD HCO3 27.1 mmol/L (20-24); ARTERIAL BLOOD PCO2 43.5 mmHg (35-45); ARTERIAL BLOOD PH 7.41 (7.35-7.45); ARTERIAL BLOOD PO2 80.7 mmHg (80-100); ARTERIAL BLOOD TOTAL CO2 28.5 mmol/L (23-27)
[2019-03-23 06:24] LABS: APPEARANCE,URINE CLEAR; BILIRUBIN,URINE NEGATIVE (NEGATIVE); COLOR,URINE YELLOW; GLUCOSE, URINE NEGATIVE (NEGATIVE); KETONES,URINE NEGATIVE (NEGATIVE); PROTEIN,URINE NEGATIVE (NEGATIVE); URINE SPECIFIC GRAVITY 1.014; UROBILINOGEN,URINE NEGATIVE mg/dL (<2.0)
[2019-03-23 06:31] LABS: ALBUMIN 2.6 g/dL (3.5-5.0); ALKALINE PHOSPHATASE 141 U/L (38-126); ANION GAP 10 (5-19); ASPARTATE AMINO TRANSFERASE 33 U/L (17-59); BILIRUBIN,DIRECT 0.1 mg/dL (0.0-0.4); BILIRUBIN,TOTAL 0.3 mg/dL (0.2-1.3); BLOOD UREA NITROGEN 23 mg/dL (7-20); CALCIUM 8.4 mg/dL (8.4-10.2); CARBON DIOXIDE 27 mmol/L (22-30); CHLORIDE 99 mmol/L (98-107); GLUCOSE 162 mg/dL (75-110); POTASSIUM 3.7 mmol/L (3.6-5.0)
--- NOTE | 2019-03-23 07:17 | RADIOLOGY REPORT (SQ) ---
CLINICAL HISTORY: Altered mental status COMPARISON: None. TECHNIQUE: CT HEAD WITHOUT IV CONTRAST on 03/23/2019 5:32 AM CHEMIST INORGANIC This exam was performed according to our departmental dose-optimization program, which includes automated exposure control, adjustment of the mA and/or kV according to patient size and/or use of iterative reconstruction technique. FINDINGS: There is no acute hemorrhage, mass effect or midline shift. Galvan-white differentiation is preserved. There is no hydrocephalus. There is mild diffuse cerebral atrophy. There are mild patchy hypodensities within the periventricular and subcortical white matter, consistent with microangiopathic ischemic changes. The calvarium is intact. Orbits and globes are unremarkable. The paranasal sinuses are clear. Mastoid air cells are clear. IMPRESSION: No acute intracranial findings.
[2019-03-23] MEDS ORDERED: OXYCODONE-ACETAMINOPHEN 5-325 MG TABLET PO PRN (08:09)
[2019-03-23] MEDS ORDERED: ACETAMINOPHEN 325 MG TABLET PO PRN (08:09)
[2019-03-23] MEDS ORDERED: NORMAL SALINE 1000 ML 1,000 ML IV PRN ×3 (08:09→19:40)
[2019-03-23] MEDS ORDERED: ONDANSETRON HCL INJ/PF 4 MG/2 ML SDV IV PRN (08:09)
[2019-03-23] MEDS ORDERED: PROMETHAZINE HCL INJ 25 MG/1 ML VIAL IV PRN (08:09)
--- NOTE | 2019-03-23 08:39 | EKG REPORT ---
SEVERITY:- ABNORMAL ECG - SINUS RHYTHM MULTIPLE PREMATURE COMPLEXES, SUPRAVEN NONSPECIFIC ST-T CHANGES- ANTERIOR LEADS : Confirmed by: Hubert Mckoy MD 23-Mar-2019 08:38:47
[2019-03-23] MEDS: DOCUSATE SODIUM 100 MG CAPSULE PO SCH (11:22)
[2019-03-23] MEDS: PIPERACILLIN SODIUM/TAZOBACTAM 4.5 GM in NORMAL SALINE 100 ML IV SCH ×3 (11:32→23:35)
[2019-03-23] MEDS ORDERED: PIPERACILLIN/TAZOBACTAM 4.5 GM VIAL IV ONE (13:11)
[2019-03-23] MEDS: IPRATROPIUM/ALBUTEROL 0.5-2.5 MG/3 ML AMPUL NEB SCH ×2 (13:13→20:48)
[2019-03-23] MEDS: HEPARIN SOD (PORCINE) 5,000 UNIT/ML 1 ML VIAL SUBCUT SCH ×2 (15:12→21:47)
[2019-03-23] MEDS ORDERED: DEXTROSE 50%-WATER 25 GM/50 ML DISP.SYRIN IV PRN ×4 (15:30→15:32)
[2019-03-23] MEDS ORDERED: GLUCAGON,HUMAN RECOMB 1 MG INJ IM PRN ×2 (15:30→15:32)
[2019-03-23] MEDS ORDERED: DEXTROSE 40% GEL 15 GM TUBE PO PRN ×4 (15:30→15:32)
--- NOTE | 2019-03-23 17:03 | PDOC PROGRESS REPORT ---
Subjective Progress Note for:: 03/23/19 Subjective:: 89-year-old male past medical history of diabetes, diabetes foot infection status post right BKA, AnnaDay shi, who was recently transferred to rehab from [facility] after he was admitted for sepsis, as per daughter who is the POA t patient signed himself out of rehab and currently living with his daughter. Patient brought in by daughter after being found poorly responsive with large vomitus. As per daughter she patient has been having very low appetite, with nonbloody diarrhea for the last several days. On my encounter patient is sleeping easily arousable, does not seem to be in any acute distress, denies any fever, chills, abdominal pain, chest pain, shortness of breath, or any urinary symptoms. In ED he was found to be hypotensive, hypoxic, tachycardic, and lactic acid of 5.3. Patient was started on empiric IV antibiotics and volume resuscitation and hospital was consulted for admission. Reason For Visit: SEPSIS Physical Exam Vital Signs: Temp Pulse Resp BP Pulse Ox 98.3 F 83 16 100/48 L 100 03/23/19 16:13 03/23/19 16:13 03/23/19 16:13 03/23/19 16:13 03/23/19 16:13 Intake & Output 03/22/19 03/23/19 03/24/19 06:59 06:59 06:59 Intake Total 100 2110 Balance 100 2110 Weight 67 kg General appearance: PRESENT: no acute distress, well-developed, well-nourished Head exam: PRESENT: atraumatic, normocephalic Respiratory exam: PRESENT: clear to auscultation cheryle. ABSENT: rales, rhonchi, wheezes Cardiovascular exam: PRESENT: RRR. ABSENT: diastolic murmur, rubs, systolic murmur GI/Abdominal exam: PRESENT: normal bowel sounds, soft. ABSENT: distended, guarding, mass, organolmegaly, rebound, tenderness Neurological exam: PRESENT: alert - Sleeping but easily arousable., oriented to person, oriented to place, CN II-XII grossly intact Results Laboratory Results: 03/23/19 05:30 03/23/19 05:24 03/23/19 03/23/19 03/23/19 05:24 05:24 05:30 WBC 8.9 RBC 3.20 L Hgb 9.5 L Hct 29.1 L MCV 91 MCH 29.6 MCHC 32.5 RDW 16.0 H Plt Count 252 Seg Neutrophils % 61.9 Carbonic Acid HCO3/H2CO3 Ratio ABG pH ABG pCO2 ABG pO2 ABG HCO3 ABG O2 Saturation ABG Base Excess FiO2 Sodium 135.9 L Potassium 3.7 Chloride 99 Carbon Dioxide 27 Anion Gap 10 BUN 23 H Creatinine 1.01 Est GFR ( Amer) > 60 Glucose 162 H Lactic Acid 5.3 H Calcium 8.4 Total Bilirubin 0.3 AST 33 Alkaline Phosphatase 141 H Total Protein 7.0 Albumin 2.6 L Urine Color Urine Appearance Urine pH Ur Specific [place] Urine Protein Urine Glucose (UA) Urine Ketones Urine Blood Urine RBC (Auto) 03/23/19 03/23/19 05:38 05:41 WBC RBC Hgb Hct MCV MCH MCHC RDW Plt Count Seg Neutrophils % Carbonic Acid 1.31 HCO3/H2CO3 Ratio 20:1 ABG pH 7.41 ABG pCO2 43.5 ABG pO2 80.7 ABG HCO3 27.1 H ABG O2 Saturation 96.0 ABG Base Excess 2.3 FiO2 4L Sodium Potassium Chloride Carbon Dioxide Anion Gap BUN Creatinine Est GFR ( Amer) Glucose Lactic Acid Calcium Total Bilirubin AST Alkaline Phosphatase Total Protein Albumin Urine Color YELLOW Urine Appearance CLEAR Urine pH 7.0 Ur Specific [place] 1.014 Urine Protein NEGATIVE Urine Glucose (UA) NEGATIVE Urine Ketones NEGATIVE Urine Blood NEGATIVE Urine RBC (Auto) 1 Impressions: Chest X-Ray 03/23/19 05:26 IMPRESSION: No acute disease. Head CT 03/23/19 05:32 IMPRESSION: No acute intracranial findings. Assessment and Plan - Diagnosis (1) Sepsis Is this a current diagnosis for this admission?: Yes Plan: Evidenced by hypotension, tachycardia, tachypnea, altered mental status, elevated lactic acid. Admit to IMCU, aggressive volume resuscitation guided by volume, trend lactic acid, empiric IV antibiotics, blood culture, stool culture. (2) Anorexia Is this a current diagnosis for this admission?: Yes Plan: Likely due to #1. Encourage p.o. intake. Appetite stimulant. Consult dietitian. (3) Altered mental status Qualifiers: Altered mental status type: delirium Qualified Code(s): R41.0 - Disorientation, unspecified Is this a current diagnosis for this admission?: Yes Plan: Resolved. Likely caused by acute metabolic encephalopathy due to underlying sepsis. At baseline patient is has mild dementia however he is alert and oriented. CT head negative. ABG WNL. Elevated lactic acid. Continue treating underlying sepsis. Continue fall and seizure precautions. (4) Coronary artery disease Qualifiers: Is this a current diagnosis for this admission?: Yes Plan: Denies any anginal symptoms. Restart home meds. Outpatient PCP and cardiology follow-up. (5) Diabetes mellitus type 2 in nonobese Is this a current diagnosis for this admission?: Yes Plan: Controlled. Hemoglobin A1c 6.6. Will start on basal, perineal, sliding scale insulin. Accu-Chek, hypoglycemia protocol. Restart home meds upon discharge. (6) Status post below-knee amputation Qualifiers: Laterality: right Qualified Code(s): Z89.511 - Acquired absence of right leg below knee Is this a current diagnosis for this admission?: Yes Plan: Recent BKA. Wound looks clean. Unsure if this is because of sepsis. Will consult surgery for evaluation of BKA.
[2019-03-23] MEDS ORDERED: VANCOMYCIN HCL 0 MG in DEXTROSE 5%-WATER 250 ML IV NR (17:15)
[2019-03-23] MEDS: INSULIN LISPRO 100 UNIT/ML 3 ML VIAL SUBCUT SCH ×2 (17:49→21:47)
[2019-03-23] MEDS: MEGESTROL ACETATE SUSP 400 MG/10 ML UDCUP PO SCH (17:49)
[2019-03-23] MEDS: PANTOPRAZOLE SODIUM 40 MG TABLET.DR PO SCH (17:49)
--- NOTE | 2019-03-23 18:56 | PDOC CONSULTATION ---
Consultation Consult Date: 03/23/19 Provider Consulted: NAVNEET SANTIAGO Consult reason:: Evaluation of right below-knee amputation site History of Present Illness Admission Date/PCP: 03/23/19 08:49 [facility] History of Present Illness: CAMILLE RAMIREZ is a 89 year old male patient is diabetic and admitted in February for infected right foot and underwent right below-knee amputation on 02/22/2019. Patient apparently was discharged to rehab but signed AGAINST MEDICAL ADVICE and brought home. Daughter noted patient to be nonresponsive at home and brought to emergency room and noted to be tachypneic hypotensive and nonresponsive. He had an elevated lactic acid and placed on antibiotics empirically. Surgeries been consulted to evaluate right below-knee amputation site. Past Medical History Cardiac Medical History: Reports: Coronary Artery Disease, Hypertension, Peripheral Vascular Disease Denies: Atrial Fibrillation, Congestive Heart Failure, Myocardial Infarction, Hyperlipidema Pulmonary Medical History: Denies: Asthma, Chronic Obstructive Pulmonary Disease (COPD) Neurological Medical History: Denies: Seizures Endocrine Medical History: Reports: Diabetes Mellitus Type 2, Hypothyroidism Denies: Diabetes Mellitus Type 1, Hyperthyroidism GI Medical History: Denies: Cirrhosis, Gastroesophageal Reflux Disease, Hepatitis Musculoskeltal Medical History: Denies: Arthritis, Gout Psychiatric Medical History: Denies: Depression Hematology: Reports: 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 Denies: Bleeding Tendencies Infectious Medical History: Reports: Methicillin-Resistant Staph Aureus Past Surgical History Past Surgical History: Reports: Orthopedic Surgery - right below-knee amputation, Vascular Surgery Social History Smoking Status: Former Smoker Electronic Cigarette use?: No Frequency of Alcohol Use: None Hx Recreational Drug Use: No Drugs: None Hx Prescription Drug Abuse: No - Advance Directive Resuscitation Status: Do Not Resuscitate Family History Family History: DM, Hypertension Parental Family History Reviewed: Yes Children Family History Reviewed: No Sibling(s) Family History Reviewed.: No Medication/Allergy Allergies/Adverse Reactions: No Known Allergies Allergy (Verified 03/04/19 13:30) Review of Systems ROS unobtainable: Due to mental status Physical Exam Vital Signs: Temp Pulse Resp BP Pulse Ox 98.3 F 83 16 100/48 L 100 03/23/19 16:13 03/23/19 16:13 03/23/19 16:13 03/23/19 16:13 03/23/19 16:13 Intake & Output 11/03/23/19 03/24/19 06:59 06:59 06:59 Intake Total 100 3381 Balance 100 3381 Weight 67 kg Exam: The right below-knee amputation stump appears to be healing very well with no evidence of infection. There is a small area of abrasion on the anterior aspect of the knee opposite the tibial bone amputation site. This however does not look inflamed. Results Laboratory Results: 03/23/19 05:30 03/23/19 05:24 03/23/19 03/23/19 03/23/19 05:24 05:24 05:30 WBC 8.9 RBC 3.20 L Hgb 9.5 L Hct 29.1 L MCV 91 MCH 29.6 MCHC 32.5 RDW 16.0 H Plt Count 252 Seg Neutrophils % 61.9 Carbonic Acid HCO3/H2CO3 Ratio ABG pH ABG pCO2 ABG pO2 ABG HCO3 ABG O2 Saturation ABG Base Excess FiO2 Sodium 135.9 L Potassium 3.7 Chloride 99 Carbon Dioxide 27 Anion Gap 10 BUN 23 H Creatinine 1.01 Est GFR ( Amer) > 60 Glucose 162 H Lactic Acid 5.3 H Calcium 8.4 Total Bilirubin 0.3 AST 33 Alkaline Phosphatase 141 H Total Protein 7.0 Albumin 2.6 L Urine Color Urine Appearance Urine pH Ur Specific [place] Urine Protein Urine Glucose (UA) Urine Ketones Urine Blood Urine RBC (Auto) 03/23/19 03/23/19 03/23/19 05:38 05:41 16:30 WBC RBC Hgb Hct MCV MCH MCHC RDW Plt Count Seg Neutrophils % Carbonic Acid 1.31 HCO3/H2CO3 Ratio 20:1 ABG pH 7.41 ABG pCO2 43.5 ABG pO2 80.7 ABG HCO3 27.1 H ABG O2 Saturation 96.0 ABG Base Excess 2.3 FiO2 4L Sodium Potassium Chloride Carbon Dioxide Anion Gap BUN Creatinine Est GFR ( Amer) Glucose Lactic Acid 1.3 Calcium Total Bilirubin AST Alkaline Phosphatase Total Protein Albumin Urine Color YELLOW Urine Appearance CLEAR Urine pH 7.0 Ur Specific [place] 1.014 Urine Protein NEGATIVE Urine Glucose (UA) NEGATIVE Urine Ketones NEGATIVE Urine Blood NEGATIVE Urine RBC (Auto) 1 Impressions: Chest X-Ray 03/23/19 05:26 IMPRESSION: No acute disease. Head CT 03/23/19 05:32 IMPRESSION: No acute intracranial findings. Assessment & Plan - Diagnosis (1) Status post below knee amputation of right lower extremity Is this a current diagnosis for this admission?: Yes - Time Time Spent: 30 to 50 Minutes - Plan Summary Plan Summary: 84-year-old male post right below-knee amputation last 02/22/2019. Amputation site appears to be healing very well and no evidence of infection. There is a small area of abrasion over the tibial bone site. Plans: Patient has an appointment to remove the sutures in the surgical clinic on 04/02/2019. If he still in the hospital then we can remove the sutures around that time of 04/02/2019 Told the nurses to make sure protect the right below-knee amputation stump where the bone is easily palpable. There is superficial abrasion about 1.5 x 1.5 cm. Told the nurses to place an Allevyn on this area on a daily basis. We will sign off and call for other questions.
[2019-03-23] MEDS: VANCOMYCIN HCL 500 MG in DEXTROSE 5%-WATER 100 ML IV SCH (20:12)
[2019-03-24] MEDS ORDERED: CHLORPROMAZINE HCL INJ 25 MG/1 ML AMPULE IV PRN (01:53)
[2019-03-24] MEDS ORDERED: CHLORPROMAZINE HCL INJ 25 MG/1 ML AMPULE ONE (02:08)
[2019-03-24] MEDS: PIPERACILLIN SODIUM/TAZOBACTAM 4.5 GM in NORMAL SALINE 100 ML IV SCH ×3 (05:24→17:20)
[2019-03-24] MEDS: HEPARIN SOD (PORCINE) 5,000 UNIT/ML 1 ML VIAL SUBCUT SCH ×3 (05:24→22:35)
[2019-03-24] MEDS: PANTOPRAZOLE SODIUM 40 MG TABLET.DR PO SCH ×2 (05:24→17:20)
[2019-03-24 07:41] LABS: ABSOLUTE BASOPHILS # (AUTO) 0.1 10^3/uL (0.0-0.2); ABSOLUTE EOSINOPHILS # (AUTO) 0.2 10^3/uL (0.0-0.6); ABSOLUTE LYMPHOCYTES (AUTO) 1.2 10^3/uL (0.5-4.7); ABSOLUTE MONOCYTES (AUTO) 0.5 10^3/uL (0.1-1.4); ABSOLUTE NEUT (AUTO) 6.8 10^3/uL (1.7-8.2); BASOPHILS % (AUTO) 0.9 % (0-2); EOSINOPHILS % (AUTO) 2.3 % (0-6); HEMATOCRIT 22.7 % (37.9-51.0); LYMPHOCYTES % (AUTO) 13.3 % (13-45); MEAN CORPUSCULAR HEMOGLOBIN 29.3 pg (27.0-33.4); MEAN CORPUSCULAR HGB CONC 32.1 g/dL (32.0-36.0); MEAN CORPUSCULAR VOLUME 91 fl (80-97); MONOCYTES % (AUTO) 5.6 % (3-13); PLATELET COUNT 194 10^3/uL (150-450); RED BLOOD COUNT 2.49 10^6/uL (4.35-5.55); RED CELL DISTRIBUTION WIDTH 16.4 % (11.5-14.0); SEGMENTED NEUTROPHILS % (AUTO) 77.9 % (42-78); TOTAL CELLS COUNTED % (AUTO) 100 %; WHITE BLOOD COUNT 8.7 10^3/uL (4.0-10.5)
[2019-03-24 07:45] LABS: HEMOGLOBIN 7.3 g/dL (13.5-17.0)
[2019-03-24] MEDS: VANCOMYCIN HCL 500 MG in DEXTROSE 5%-WATER 100 ML IV SCH ×2 (07:46→20:20)
[2019-03-24] MEDS: INSULIN GLARGINE,HUM.REC.ANLOG 1,000 UNIT/10 ML VIAL SUBCUT SCH (07:47)
[2019-03-24] MEDS: INSULIN LISPRO 100 UNIT/ML 3 ML VIAL SUBCUT SCH ×4 (07:51→22:35)
[2019-03-24 08:08] LABS: ALBUMIN 2.1 g/dL (3.5-5.0); ALKALINE PHOSPHATASE 93 U/L (38-126); ANION GAP 7 (5-19); ASPARTATE AMINO TRANSFERASE 21 U/L (17-59); BILIRUBIN,DIRECT 0.1 mg/dL (0.0-0.4); BILIRUBIN,TOTAL 0.4 mg/dL (0.2-1.3); BLOOD UREA NITROGEN 23 mg/dL (7-20); CALCIUM 7.5 mg/dL (8.4-10.2); CARBON DIOXIDE 28 mmol/L (22-30); CHLORIDE 104 mmol/L (98-107); GLUCOSE 121 mg/dL (75-110); POTASSIUM 3.5 mmol/L (3.6-5.0); TOTAL PROTEIN 5.7 g/dL (6.3-8.2)
[2019-03-24] MEDS: IPRATROPIUM/ALBUTEROL 0.5-2.5 MG/3 ML AMPUL NEB SCH ×3 (08:20→21:28)
[2019-03-24] MEDS: DOCUSATE SODIUM 100 MG CAPSULE PO SCH (09:06)
[2019-03-24] MEDS: MEGESTROL ACETATE SUSP 400 MG/10 ML UDCUP PO SCH (09:06)
--- NOTE | 2019-03-24 12:58 | PDOC PROGRESS REPORT ---
Subjective Progress Note for:: 03/24/19 Subjective:: Patient seen in follow-up regarding vomiting and hypoxia. Patient currently denies any pain and denies any rest or distress, chest pain or fevers. Patient daughter at bedside confirms the patient has not been having any diarrhea and has no complaint of pain to her. Reason For Visit: SEPSIS Physical Exam Vital Signs: Temp Pulse Resp BP Pulse Ox 97.7 F 97 16 130/66 H 100 03/24/19 12:05 03/24/19 12:05 03/24/19 12:05 03/24/19 12:05 03/24/19 12:05 Intake & Output 03/23/19 03/24/19 03/25/19 06:59 06:59 06:59 Intake Total 100 3781 Output Total 200 Balance 100 3581 Weight 67 kg 73.2 kg General appearance: PRESENT: no acute distress, cooperative, thin Neck exam: ABSENT: JVD Respiratory exam: PRESENT: clear to auscultation cheryle, symmetrical, unlabored. ABSENT: rhonchi, tachypnea, wheezes Cardiovascular exam: PRESENT: RRR, +S1, +S2. ABSENT: gallop, tachycardia GI/Abdominal exam: PRESENT: normal bowel sounds, soft. ABSENT: firm, guarding, rebound, rigid, tenderness Extremities exam: PRESENT: other - Right BKA stump is healing well without any purulence erythema or significant tenderness in the area. Neurological exam: PRESENT: alert, awake, oriented to person. ABSENT: altered Psychiatric exam: ABSENT: agitated Results Laboratory Results: 03/24/19 06:50 03/24/19 06:50 03/23/19 03/24/19 03/24/19 16:30 00:30 06:50 WBC 8.7 RBC 2.49 L Hgb 7.3 L D Hct 22.7 L MCV 91 MCH 29.3 MCHC 32.1 RDW 16.4 H Plt Count 194 Seg Neutrophils % 77.9 Sodium Potassium Chloride Carbon Dioxide Anion Gap BUN Creatinine Est GFR ( Amer) Glucose Lactic Acid 1.3 1.5 Calcium Magnesium Total Bilirubin AST Alkaline Phosphatase Total Protein Albumin 03/24/19 06:50 WBC RBC Hgb Hct MCV MCH MCHC RDW Plt Count Seg Neutrophils % Sodium 138.5 Potassium 3.5 L Chloride 104 Carbon Dioxide 28 Anion Gap 7 BUN 23 H Creatinine 1.05 Est GFR ( Amer) > 60 Glucose 121 H Lactic Acid Calcium 7.5 L Magnesium 1.8 Total Bilirubin 0.4 AST 21 Alkaline Phosphatase 93 Total Protein 5.7 L Albumin 2.1 L Impressions: Chest X-Ray 03/23/19 05:26 IMPRESSION: No acute disease. Head CT 03/23/19 05:32 IMPRESSION: No acute intracranial findings. Assessment and Plan - Diagnosis (1) Sepsis Is this a current diagnosis for this admission?: Yes Plan: Sepsis was initially suspected due to hypotension, tachycardia, tachypnea, altered mental status, elevated lactic acid. Currently being treated with IV antibiotics for suspected sepsis. However no source or site of an infection has been found. Chest x-ray and urine are normal. No abdominal pain or GI symptoms. BKA site well-healed without infection. If blood cultures remain negative at the 48-hour millicent, I will discontinue IV antibiotics and discharge patient. (2) Encephalopathy acute Is this a current diagnosis for this admission?: Yes Plan: Currently resolved. Back to baseline. (3) Anorexia Is this a current diagnosis for this admission?: Yes Plan: Food supplements (4) Coronary artery disease Qualifiers: Is this a current diagnosis for this admission?: Yes Plan: Stable (5) Diabetes mellitus type 2 in nonobese Is this a current diagnosis for this admission?: Yes Plan: Controlled. Hemoglobin A1c 6.6. Continue on basal, perineal, sliding scale insulin. Accu-Chek, hypoglycemia protocol. Restart home meds upon discharge. (6) Status post below-knee amputation Qualifiers: Laterality: right Qualified Code(s): Z89.511 - Acquired absence of right leg below knee Is this a current diagnosis for this admission?: Yes Plan: Recent BKA. Wound looks clean. Unsure if this is because of sepsis. Evaluated by surgery and no intervention needed. - Time Time Spent with patient: 15-24 minutes
--- NOTE | 2019-03-24 21:20 | PDOC H&P ---
History of Present Illness Admission Date/PCP: 03/23/19 08:49 [facility] History of Present Illness: 89-year-old male past medical history of diabetes, diabetes foot infection status post right CLEMENTEAMary Carmen, who was recently transferred to rehab from [facility] after he was admitted for sepsis, as per daughter who is the POA t patient signed himself out of rehab and currently living with his daughter. Patient brought in by daughter after being found poorly responsive with large vomitus. As per daughter she patient has been having very low appetite, with nonbloody diarrhea for the last several days. On my encounter patient is sleeping easily arousable, does not seem to be in any acute distress, denies any fever, chills, abdominal pain, chest pain, shortness of breath, or any urinary symptoms. In ED he was found to be hypotensive, hypoxic, tachycardic, and lactic acid of 5.3. Patient was started on empiric IV antibiotics and volume resuscitation and hospital was consulted for admission. Past Medical History Cardiac Medical History: Reports: Coronary Artery Disease, Hypertension, Peripheral Vascular Disease Denies: Atrial Fibrillation, Congestive Heart Failure, Myocardial Infarction, Hyperlipidema Pulmonary Medical History: Denies: Asthma, Chronic Obstructive Pulmonary Disease (COPD) Neurological Medical History: Denies: Seizures Endocrine Medical History: Reports: Diabetes Mellitus Type 2, Hypothyroidism Denies: Diabetes Mellitus Type 1, Hyperthyroidism GI Medical History: Denies: Cirrhosis, Gastroesophageal Reflux Disease, Hepatitis Musculoskeltal Medical History: Denies: Arthritis, Gout Psychiatric Medical History: Denies: Depression Hematology: Reports: 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 Denies: Bleeding Tendencies Infectious Medical History: Reports: Methicillin-Resistant Staph Aureus Past Surgical History Past Surgical History: Reports: Orthopedic Surgery - right below-knee amputation, Vascular Surgery Social History Smoking Status: Former Smoker Electronic Cigarette use?: No Frequency of Alcohol Use: None Hx Recreational Drug Use: No Drugs: None Hx Prescription Drug Abuse: No - Advance Directive Resuscitation Status: Do Not Resuscitate Family History Family History: DM, Hypertension Parental Family History Reviewed: Yes Children Family History Reviewed: Yes Sibling(s) Family History Reviewed.: Yes Medication/Allergy Home Medications: Atorvastatin Calcium [Lipitor 40 mg Tablet] 20 mg PO HSP PRN 03/24/19 Cyanocobalamin (Vitamin B-12) [B-12] 1,000 mcg PO DAILY 03/24/19 Diltiazem HCl [Cardizem Cd 240 mg Capsule.cr] 240 mg PO DAILY 03/24/19 Insulin Lispro [Humalog] 10 units SQ BIDBL 03/24/19 Isosorbide Mononitrate [Imdur 30 mg Tablet.er] 30 mg PO DAILY 03/24/19 Levothyroxine Sodium 125 mcg PO Q6AM 03/24/19 Multivitamin [Multiple Vitamins] 1 tab PO DAILY 03/24/19 NPH, Human Insulin Isophane [Humulin N (NPH) Insulin 100 unit/mL] 10 units SQ NOON 03/24/19 NPH, Human Insulin Isophane [Humulin N (NPH) Insulin 100 unit/mL] 45 units SQ QAM 03/24/19 Petrolatum,White/Lanolin [Vitamin A and D Ointment] 1 applic TOP BID 03/24/19 Ranitidine HCl [Zantac] 150 mg PO HSP PRN 03/24/19 Urea 1 applic TOP BID 03/24/19 Allergies/Adverse Reactions: No Known Allergies Allergy (Verified 03/04/19 13:30) Physical Exam Vital Signs: Temp Pulse Resp BP Pulse Ox 98.1 F 86 14 113/55 L 100 03/24/19 20:03 03/24/19 20:03 03/24/19 20:03 03/24/19 20:03 03/24/19 20:03 Intake & Output 03/23/19 03/24/19 03/25/19 06:59 06:59 06:59 Intake Total 100 3781 590 Output Total 200 325 Balance 100 3581 265 Weight 67 kg 73.2 kg General appearance: PRESENT: no acute distress Respiratory exam: PRESENT: clear to auscultation cheryle. ABSENT: rales, rhonchi, wheezes Cardiovascular exam: PRESENT: RRR. ABSENT: diastolic murmur, rubs, systolic murmur GI/Abdominal exam: PRESENT: normal bowel sounds, soft. ABSENT: distended, guarding, mass, organolmegaly, rebound, tenderness Neurological exam: PRESENT: alert, oriented to person, oriented to place, CN II- XII grossly intact, other Results Laboratory Results: 03/24/19 06:50 03/24/19 06:50 03/24/19 03/24/19 03/24/19 00:30 06:50 06:50 WBC 8.7 RBC 2.49 L Hgb 7.3 L D Hct 22.7 L MCV 91 MCH 29.3 MCHC 32.1 RDW 16.4 H Plt Count 194 Seg Neutrophils % 77.9 Sodium 138.5 Potassium 3.5 L Chloride 104 Carbon Dioxide 28 Anion Gap 7 BUN 23 H Creatinine 1.05 Est GFR ( Amer) > 60 Glucose 121 H Lactic Acid 1.5 Calcium 7.5 L Magnesium 1.8 Total Bilirubin 0.4 AST 21 Alkaline Phosphatase 93 Total Protein 5.7 L Albumin 2.1 L Impressions: Chest X-Ray 03/23/19 05:26 IMPRESSION: No acute disease. Head CT 03/23/19 05:32 IMPRESSION: No acute intracranial findings. Assessment and Plan - Diagnosis (1) Sepsis Is this a current diagnosis for this admission?: Yes Plan: Evidenced by hypotension, tachycardia, tachypnea, altered mental status, elevated lactic acid. Admit to IMCU, aggressive volume resuscitation guided by volume, trend lactic acid, empiric IV antibiotics, blood culture, stool culture. (2) Anorexia Is this a current diagnosis for this admission?: Yes Plan: Likely due to #1. Encourage p.o. intake. Appetite stimulant. Consult dietitian. (3) Altered mental status Qualifiers: Altered mental status type: delirium Qualified Code(s): R41.0 - Disorientation, unspecified Is this a current diagnosis for this admission?: Yes Plan: Resolved. Likely caused by acute metabolic encephalopathy due to underlying sepsis. At baseline patient is has mild dementia however he is alert and oriented. CT head negative. ABG WNL. Elevated lactic acid. Continue treating underlying sepsis. Continue fall and seizure precautions. (4) Coronary artery disease Qualifiers: Is this a current diagnosis for this admission?: Yes Plan: Denies any anginal symptoms. Restart home meds. Outpatient PCP and cardiology follow-up. (5) Diabetes mellitus type 2 in nonobese Is this a current diagnosis for this admission?: Yes Plan: Controlled. Hemoglobin A1c 6.6. Continue on basal, perineal, sliding scale insulin. Accu-Chek, hypoglycemia protocol. Restart home meds upon discharge. (6) Status post below-knee amputation Qualifiers: Laterality: right Qualified Code(s): Z89.511 - Acquired absence of right leg below knee Is this a current diagnosis for this admission?: Yes Plan: Recent BKA. Wound looks clean. Unsure if this is because of sepsis. Will consult surgery for evaluation of BKA.
[2019-03-25] MEDS: PIPERACILLIN SODIUM/TAZOBACTAM 4.5 GM in NORMAL SALINE 100 ML IV SCH ×2 (00:07→05:53)
[2019-03-25] MEDS: HEPARIN SOD (PORCINE) 5,000 UNIT/ML 1 ML VIAL SUBCUT SCH ×2 (05:53→13:19)
[2019-03-25] MEDS: PANTOPRAZOLE SODIUM 40 MG TABLET.DR PO SCH ×2 (05:54→17:10)
[2019-03-25] MEDS: IPRATROPIUM/ALBUTEROL 0.5-2.5 MG/3 ML AMPUL NEB SCH ×3 (08:48→21:17)
[2019-03-25] MEDS: INSULIN LISPRO 100 UNIT/ML 3 ML VIAL SUBCUT SCH ×3 (08:53→17:08)
[2019-03-25] MEDS: INSULIN GLARGINE,HUM.REC.ANLOG 1,000 UNIT/10 ML VIAL SUBCUT SCH (08:53)
[2019-03-25] MEDS: MEGESTROL ACETATE SUSP 400 MG/10 ML UDCUP PO SCH (09:01)
[2019-03-25] MEDS: VANCOMYCIN HCL 500 MG in DEXTROSE 5%-WATER 100 ML IV SCH (09:01)
[2019-03-25] MEDS: DOCUSATE SODIUM 100 MG CAPSULE PO SCH (09:01)
[2019-03-25 09:03] LABS: VANCOMYCIN,TROUGH 14.9 ug/mL (5.0-20.0)
[2019-03-25 10:53] LABS: HEMATOCRIT 23.2 % (37.9-51.0); MEAN CORPUSCULAR HEMOGLOBIN 29.1 pg (27.0-33.4); MEAN CORPUSCULAR HGB CONC 32.6 g/dL (32.0-36.0); MEAN CORPUSCULAR VOLUME 89 fl (80-97); PLATELET COUNT 174 10^3/uL (150-450); WHITE BLOOD COUNT 5.4 10^3/uL (4.0-10.5)
[2019-03-25 10:55] LABS: HEMOGLOBIN 7.6 g/dL (13.5-17.0)
[2019-03-25 17:08] VITALS: BP 125/62
--- NOTE | 2019-03-25 19:30 | PDOC DISCHARGE SUMMARY ---
Impression - Admit/DC Date/PCP Admission Date/Primary Care Provider: 03/23/19 08:[facility] Discharge Date: 03/25/19 - Discharge Diagnosis (1) Dehydration Is this a current diagnosis for this admission?: Yes (2) Moderate malnutrition Is this a current diagnosis for this admission?: Yes (3) Sepsis Is this a current diagnosis for this admission?: Yes (4) Encephalopathy acute Is this a current diagnosis for this admission?: Yes (5) Anorexia Is this a current diagnosis for this admission?: Yes (6) Coronary artery disease Is this a current diagnosis for this admission?: Yes (7) Diabetes mellitus type 2 in nonobese Is this a current diagnosis for this admission?: Yes (8) Status post below-knee amputation Is this a current diagnosis for this admission?: Yes - Assessment Summary: Patient was admitted for evaluation of mild lactic acidosis, hypotension and possible concern for sepsis. Patient was started on empiric IV antibiotics given elevated white count and encephalopathy. However no source of infection was identified at that time. Chest x-ray showed no acute pulmonary processes and no infiltrates. Urinalysis was negative for any infection. Blood cultures were obtained. Patient's surgical incision site at the stump of his right BKA was evaluated by surgery and was deemed to be healing well with no evidence of infection. Blood cultures were performed which came back negative after 48 hours. Patient's encephalopathy and all other signs and symptoms resolved his significant IV fluid hydration. Patient has been noted to have weak appetite on this admission and prior admissions. Given evidence of moderate malnutrition with low albumin, patient was started on appetite stimulant Megace. I have also discontinued patient's home regimen of Novolin 10 units in the evening of 45 units in the morning as I believe this regimen is too strong for patient. This is evidenced by the fact that patient has not required much insulin during his stay in the hospital to maintain blood sugars well below 200. This is probably due to declining appetite and he is low insulin requirements was noted on prior admissions. It is uncertain if patient was hypoglycemic at the time he was found confused at home. I have placed patient on Lantus 12 units daily as a substitute for this. I believe patient symptoms mostly due to dehydration and poor oral intake and there has been no evidence of infection patient stay in the hospital. As such I have discontinued all antibiotics discharge patient stable conditions home with home health. - Additional Information Resuscitation Status: Do Not Resuscitate Discharge Diet: Diabetic Discharge Activity: Activity As Tolerated Referrals: [facility] [Primary [facility]] - (Please follow up within 1 week of discharge.) Prescriptions: Insulin Glargine,Hum.rec.anlog [Lantus Insulin 100 Unit/1 ml 10 ml] 12 unit SUBCUT QAM #10 ml Megestrol Acetate [Megace Dania 400 mg/10 ml Udcup] 800 mg PO DAILY 30 Days Home Medications: Atorvastatin Calcium [Lipitor 40 mg Tablet] 20 mg PO HSP PRN 03/24/19 Cyanocobalamin (Vitamin B-12) [B-12] 1,000 mcg PO DAILY 03/24/19 Diltiazem HCl [Cardizem Cd 240 mg Capsule.cr] 240 mg PO DAILY 03/24/19 Isosorbide Mononitrate [Imdur 30 mg Tablet.er] 30 mg PO DAILY 03/24/19 Levothyroxine Sodium 125 mcg PO Q6AM 03/24/19 Multivitamin [Multiple Vitamins] 1 tab PO DAILY 03/24/19 Petrolatum,White/Lanolin [Vitamin A and D Ointment] 1 applic TOP BID 03/24/19 Ranitidine HCl [Zantac] 150 mg PO HSP PRN 03/24/19 Urea 1 applic TOP BID 03/24/19 Insulin Glargine,Hum.rec.anlog [Lantus Insulin 100 Unit/1 ml 10 ml] 12 unit SUBCUT QAM #10 ml 03/25/19 Megestrol Acetate [Megace Dania 400 mg/10 ml Udcup] 800 mg PO DAILY 30 Days 03/25/19 History of Present Illiness History of Present Illness: CAMILLE RAMIREZ is a 89-year-old male past medical history of diabetes, diabetes foot infection status post right BKA, A. fib, who was recently transferred to rehab from [facility] after he was admitted for sepsis, as per daughter who is the POA t patient signed himself out of rehab and currently living with his daughter. Patient brought in by daughter after being found poorly responsive with large vomitus. As per daughter she patient has been having very low appetite, with nonbloody diarrhea for the last several days. On my encounter patient is sleeping easily arousable, does not seem to be in any acute distress, denies any fever, chills, abdominal pain, chest pain, shortness of breath, or any urinary symptoms. In ED he was found to be hypotensive, hypoxic, tachycardic, and lactic acid of 5.3. Patient was started on empiric IV antibiotics and volume resuscitation and hospital was consulted for admission. Physical Exam Vital Signs: Temp Pulse Resp BP Pulse Ox 97.8 F 92 16 125/62 100 03/25/19 18:00 03/25/19 18:00 03/25/19 18:00 03/25/19 16:52 03/25/19 18:00 Intake & Output 03/24/19 03/25/19 03/26/19 06:59 06:59 06:59 Intake Total 3781 990 400 Output Total 200 675 900 Balance 3581 315 -500 Weight 73.2 kg 74.2 kg General appearance: PRESENT: no acute distress, cooperative Neck exam: ABSENT: JVD Respiratory exam: PRESENT: clear to auscultation cheryle, unlabored. ABSENT: tachypnea, wheezes Cardiovascular exam: PRESENT: RRR, +S1, +S2. ABSENT: tachycardia GI/Abdominal exam: PRESENT: normal bowel sounds, soft. ABSENT: rebound, tenderness Neurological exam: PRESENT: awake Results Laboratory Results: WBC 5.4 10^3/uL (4.0-10.5) 03/25/19 08:04 RBC 2.60 10^6/uL (4.35-5.55) L 03/25/19 08:04 Hgb 7.6 g/dL (13.5-17.0) L 03/25/19 08:04 Hct 23.2 % (37.9-51.0) L 03/25/19 08:04 MCV 89 fl (80-97) 03/25/19 08:04 MCH 29.1 pg (27.0-33.4) 03/25/19 08:04 MCHC 32.6 g/dL (32.0-36.0) 03/25/19 08:04 RDW 16.0 % (11.5-14.0) H 03/25/19 08:04 Plt Count 174 10^3/uL (150-450) 03/25/19 08:04 Lymph % (Auto) 13.3 % (13-45) 03/24/19 06:50 [place] % (Auto) 5.6 % (3-13) 03/24/19 06:50 Eos % (Auto) 2.3 % (0-6) 03/24/19 06:50 Baso % (Auto) 0.9 % (0-2) 03/24/19 06:50 Absolute Neuts (auto) 6.8 10^3/uL (1.7-8.2) 03/24/19 06:50 Absolute Lymphs (auto) 1.2 10^3/uL (0.5-4.7) 03/24/19 06:50 Absolute Monos (auto) 0.5 10^3/uL (0.1-1.4) 03/24/19 06:50 Absolute Eos (auto) 0.2 10^3/uL (0.0-0.6) 03/24/19 06:50 Absolute Basos (auto) 0.1 10^3/uL (0.0-0.2) 03/24/19 06:50 Seg Neutrophils % 77.9 % (42-78) 03/24/19 06:50 PT 17.2 SEC (11.4-15.4) H 03/23/19 05:24 INR 1.39 03/23/19 05:24 Carbonic Acid 1.31 mmol/L (1.05-1.35) 03/23/19 05:41 HCO3/H2CO3 Ratio 20:1 03/23/19 05:41 ABG pH 7.41 (7.35-7.45) 03/23/19 05:41 ABG pCO2 43.5 mmHg (35-45) 03/23/19 05:41 ABG pO2 80.7 mmHg (80-100) 03/23/19 05:41 ABG HCO3 27.1 mmol/L (20-24) H 03/23/19 05:41 ABG Total CO2 28.5 mmol/L (23-27) H 03/23/19 05:41 ABG O2 Saturation 96.0 % (94-98) 03/23/19 05:41 ABG Base Excess 2.3 mmol/L 03/23/19 05:41 FiO2 4L 03/23/19 05:41 Sodium 138.5 mmol/L (137-145) 03/24/19 06:50 Potassium 3.5 mmol/L (3.6-5.0) L 03/24/19 06:50 Chloride 104 mmol/L (98-107) 03/24/19 06:50 Carbon Dioxide 28 mmol/L (22-30) 03/24/19 06:50 Anion Gap 7 (5-19) 03/24/19 06:50 BUN 23 mg/dL (7-20) H 03/24/19 06:50 Creatinine 1.05 mg/dL (0.52-1.25) 03/24/19 06:50 Est GFR ( Amer) > 60 (>60) 03/24/19 06:50 Est GFR (MDRD) Non-Af > 60 (>60) 03/24/19 06:50 Glucose 121 mg/dL (75-110) H 03/24/19 06:50 POC Glucose 193 mg/dL (70-110) H 03/25/19 16:48 Lactic Acid 1.5 mmol/L (0.7-2.1) 03/24/19 00:30 Calcium 7.5 mg/dL (8.4-10.2) L 03/24/19 06:50 Magnesium 1.8 mg/dL (1.6-2.3) 03/24/19 06:50 Total Bilirubin 0.4 mg/dL (0.2-1.3) 03/24/19 06:50 Direct Bilirubin 0.1 mg/dL (0.0-0.4) 03/24/19 06:50 Neonat Total Bilirubin Not Reportable 03/24/19 06:50 Neonat Direct Bilirubin Not Reportable 03/24/19 06:50 Neonat Indirect Bili Not Reportable 03/24/19 06:50 AST 21 U/L (17-59) 03/24/19 06:50 ALT 10 U/L (<50) 03/24/19 06:50 Alkaline Phosphatase 93 U/L (38-126) 03/24/19 06:50 Total Protein 5.7 g/dL (6.3-8.2) L 03/24/19 06:50 Albumin 2.1 g/dL (3.5-5.0) L 03/24/19 06:50 Urine Color YELLOW 03/23/19 05:38 Urine Appearance CLEAR 03/23/19 05:38 Urine pH 7.0 (5.0-9.0) 03/23/19 05:38 Ur Specific [place] 1.014 03/23/19 05:38 Urine Protein NEGATIVE mg/dL (NEGATIVE) 03/23/19 05:38 Urine Glucose (UA) NEGATIVE mg/dL (NEGATIVE) 03/23/19 05:38 Urine Ketones NEGATIVE mg/dL (NEGATIVE) 03/23/19 05:38 Urine Blood NEGATIVE (NEGATIVE) 03/23/19 05:38 Urine Nitrite (Reflex) NEGATIVE (NEGATIVE) 03/23/19 05:38 Urine Bilirubin NEGATIVE (NEGATIVE) 03/23/19 05:38 Urine Urobilinogen NEGATIVE mg/dL (<2.0) 03/23/19 05:38 Leukocyte Esterase Rfl NEGATIVE (NEGATIVE) 03/23/19 05:38 Urine RBC (Auto) 1 /HPF 03/23/19 05:38 U Hyaline Cast (Auto) 1 /LPF 03/23/19 05:38 Urine WBC (Reflex) 1 /HPF 03/23/19 05:38 Squamous Epi Cells Auto <1 /HPF 03/23/19 05:38 Urine Ascorbic Acid NEGATIVE (NEGATIVE) 03/23/19 05:38 Time Trough Drawn 0804 03/25/19 08:04 Vancomycin Trough 14.9 ug/mL (5.0-20.0) 03/25/19 08:04 Impressions: Chest X-Ray 03/23/19 05:26 IMPRESSION: No acute disease. Head CT 03/23/19 05:32 IMPRESSION: No acute intracranial findings. Plan Time Spent: Greater than 30 Minutes Stroke Is this a Stroke Patient?: No Acute Heart Failure - Is this a Heart Failure Patient?: No
== END 2019-03-25 23:02 | disposition home health service (06) | DRG 641 ==
LOC: ER 05:20 → EH 08:49 → 3S 14:27
PROVIDERS: ADMIT Internal Medicine; ATTEND Internal Medicine
DX: E86.0 Dehydration (principal); E44.0 Moderate protein-calorie malnutrition; G93.40 Encephalopathy, unspecified; F03.90 Unspecified dementia, unspecified severity, without behavioral disturbance, psychotic disturbance, mood disturbance, and anxiety; E03.9 Hypothyroidism, unspecified; I95.9 Hypotension, unspecified; E87.2 Acidosis; R09.02 Hypoxemia; R00.0 Tachycardia, unspecified; I25.10 Atherosclerotic heart disease of native coronary artery without angina pectoris; E11.51 Type 2 diabetes mellitus with diabetic peripheral angiopathy without gangrene; Z66 Do not resuscitate; Z87.891 Personal history of nicotine dependence; Z89.511 Acquired absence of right leg below knee; Z83.3 Family history of diabetes mellitus; Z82.49 Family history of ischemic heart disease and other diseases of the circulatory system; Z79.4 Long term (current) use of insulin; Z86.14 Personal history of Methicillin resistant Staphylococcus aureus infection
CPT/HCPCS: 36415; 70450; 71045; 80053; 80202; 81001; 82803; 82962; 83605; 83735; 85025; 85027; 85610; 87040; 93005; 93010; 94640; 96361; 96374; 99285; J1644; J1815; J2543; J3230; J3370; J3490; J7030; J7050; J7060; J7620